=== PATIENT | female | born 1965 | race Caucasian/White ===

== ENCOUNTER 2020-06-26 08:24 | Outpatient (REF) | payer OTHER, SELFPAY ==
--- NOTE | 2020-06-26 | US_ITS ---
EXAMINATION: US THYROID CLINICAL INFORMATION: Enlarged thyroid. COMPARISON: None. TECHNIQUE: Linear transducer somers-scale and color Doppler examination with attention to the region of the thyroid. FINDINGS: SIZE: Measurements of the thyroid lobes and nodules are given in sagittal, anteroposterior and transverse dimensions respectively. Right Thyroid Lobe: 5.4 x 1.5 x 1.6 cm, volume 6.8 mL. Parenchyma: The gland echotexture is homogeneous. Thyroid vascularity is mildly increased. Left Thyroid Lobe: 5.3 x 1.0 x 1.7 cm, volume 4.7 mL. Parenchyma: The gland echotexture is homogeneous. Thyroid vascularity is mildly increased. Isthmus: 0.4 cm in maximum AP dimension. RIGHT THYROID LOBE: No nodules. ISTHMUS: No nodules. LEFT THYROID LOBE: No nodules. NODES: No lymphadenopathy is seen in the tissue surrounding the thyroid gland. IMPRESSION: Normal-size slightly hypervascular thyroid gland. Thyroiditis and Graves' disease should be considered. No nodule seen..
== END 2020-06-26 08:25 | disposition home or self-care (01) ==
LOC: HO.US 08:24
PROVIDERS: PCP Internal Medicine; Visit Provider Internal Medicine
DX: E04.9 Nontoxic goiter, unspecified (principal)
CPT/HCPCS: 76536

== ENCOUNTER 2020-07-23 08:43 | Outpatient (REF) | payer OTHER, SELFPAY ==
--- NOTE | 2020-07-23 08:48 | MM_ITS ---
EXAMINATION: MM SCREENING DIGITAL BREAST TOMOSYNTHESIS, BILATERAL CLINICAL INFORMATION: Screening. Asymptomatic. The lifetime risk of breast cancer based on the Tyrer-Cuzick Model is 11%. COMPARISON: Mammography: 11/02/2016, 09/15/2014 TECHNIQUE: Digital mammography is performed in craniocaudal and mediolateral oblique views along with computer-aided detection (CAD). Digital breast tomosynthesis is performed in implant-displaced craniocaudal and implant-displaced mediolateral oblique views along with computer-aided detection (CAD). Synthesized 2D images are generated from the tomosynthesis. Additional right MLO view is provided. FINDINGS: There are scattered areas of fibroglandular density (ACR BI-RADS breast composition Category b). There are bilateral implants. The implant margins are smooth. Parenchymal pattern is unremarkable. There is no developing density or interval mass or architectural abnormality or abnormal calcifications. The skin contours are smooth. No significant changes. MM/MM tomosynthesis screen imp BI IMPRESSION: No mammographic evidence of malignancy. ASSESSMENT: BI-RADS 1: Negative RECOMMENDATION: Routine annual mammography screening. This patient's information was entered into a reminder system with a target due date for their next mammogram.
--- NOTE | 2020-07-23 08:48 | MM_ITS ---
EXAMINATION: BONE DENSITOMETRY CLINICAL INDICATION: Postmenopausal. COMPARISON: This is the patient's baseline examination. TECHNIQUE: Using a [employer] DXA System (software version: 13.1) manufactured by [employer], dual-energy x-ray absorptiometry was performed of the lumbar spine and left hip. The images are of good technical quality. Summary results are attached. FINDINGS: AP SPINE L1-L4: BMD 1.079 g/cm2, Z-score -0.3, T-score -0.8, normal. LEFT FEMUR, NECK: BMD 0.752 g/cm2, Z-score -1.3, T-score -2.1, osteopenia. LEFT FEMUR, TOTAL: BMD 0.805 g/cm2, Z-score -1.2, T-score -1.6, osteopenia. IDENTIFIED RISK FACTORS: Low calcium, secondary osteoporosis, thiazide, menopause. HISTORY OF FRACTURE: None listed. MEDICATIONS: None listed. MM/XR DEXA axial skeleton IMPRESSION: 1. DIAGNOSIS: Osteopenia based on the lowest T-score value of -2.1 in the femoral neck applying World Health Organization criteria. 2. 10-YEAR FRACTURE RISK PREDICTION, FRAX: Major osteoporotic fracture (clinical spine, forearm, hip or shoulder) 8.6%. Hip fracture 1.1%. 3. Treatment Recommendations: NOF guidelines recommend consideration for treatment in postmenopausal women and men age 50 and older presenting with the following: -A hip or vertebral (clinical or morphometric) fracture. -T-score less than or equal to -2.5 at the femoral neck or spine after appropriate evaluation to exclude secondary causes. -Low bone mass at the hip or spine and a 10-year fracture probability by FRAX of greater than or equal to 3% for hip fracture or greater than or equal to 20% for major osteoporotic fracture based on the [place] adapted WHO algorithm. 4. Other Recommendations: All treatment decisions require clinical judgment and consideration of individual patient factors, including patient preferences, comorbidities, previous drug use, risk factors not captured in the FRAX model (e.g. frailty, falls, vitamin D deficiency, increased bone turnover, interval significant decline in bone density) and possible under or overestimation of fracture risk by FRAX. Additional medical evaluation for secondary cause of low bone mineral density may be appropriate. FUTURE SCAN RECOMMENDATION: People with diagnosed cases of osteoporosis or at high risk for fracture should have regular bone mineral density tests. For patients eligible for Medicare, routine testing is allowed once every 2 years. The testing frequency can be increased to one year for patients who have rapidly progressing disease, those who are receiving or discontinuing medical therapy to restore bone mass, or have additional risk factors.
== END 2020-07-23 08:44 | disposition home or self-care (01) ==
LOC: HO.MAMMO 08:43
PROVIDERS: PCP Internal Medicine; Visit Provider Internal Medicine
DX: Z78.0 Asymptomatic menopausal state (principal); Z13.31 Encounter for screening for depression
CPT/HCPCS: 77063; 77067; 77080

== ENCOUNTER → 2020-08-12 09:23 | Outpatient (BNVA) | payer OTHER, SELFPAY | PROVIDERS: PCP Internal Medicine; Visit Provider Internal Medicine | DX: R07.2 Precordial pain (principal); R94.39 Abnormal result of other cardiovascular function study; I10 Essential (primary) hypertension | CPT/HCPCS: 93005; 99202 ==

== ENCOUNTER → 2020-08-19 08:38 | Outpatient (REF) | payer OTHER, SELFPAY ==
--- NOTE | 2020-08-19 08:39 | CA_ITS ---
Acquisition Time: 2020-08-19 10:38:47 Total Exercise Time: 00:07:47 Test Indications: PALPITATIONS Medications: HCTZ Protocol: ALICIA Max HR: 155 BPM 94% of Pred: 164 BPM Max BP: 138/080 mmHG Max Work Load: 9.7 METS Exercise stress nuclear using Alicia protocol, total of 7 min 47 sec, METS 9.7 with MHR up to 93%. Tolerated well, denies any anginal sx. EKG with occ. PVC's, Mild upsloping ST depressions in inferior, lateral and some anterior leads.Nuclear images to follow. Normotensive response to exercise. Test reviewed with Dr. Yousif. Referred By: Brannon Jauregui Overread By: Luciana Harp
--- NOTE | 2020-08-19 08:39 | CA_ITS ---
Transthoracic Echocardiogram Patient (Last, First, Middle): Nya Pacheco, Gender: Female Date of : 1965 Age: 54 Procedure Date: 08/19/2020 Procedure Type: Transthoracic Echocardiogram Location: OP Height: 170.18 cm Weight: 73.94 kg BSA: 1.85 m2 Heart Rate: bpm BP: 118 / 60 mmHg Theoretical Physicist: Referring MD: Brannon Jauregui MD Symptoms: I25.10 - Atherosclerotic heart disease of [place] coronary artery without angina pectoris Study Quality: Fair, Good images on Apical views ECG Rhythm: Sinus Conclusions: - 1. Normal LV systolic function with impaired relaxation filling pattern 2. Normal cardiac valvular Doppler 3. Normal RV systolic pressure 4. No pericardial effusion Findings Left Ventricle Normal left ventricular size, thickness, and systolic function. The visually estimated ejection fraction is between 60-65%. Spectral Doppler is indicative of an impaired relaxation filling pattern. E/E prime ratio is between 8 and 15 consistent with indeterminate filling pressures. Right Ventricle Normal right ventricular cavity size and systolic function. Atria Both atria are normal in size. There is no evidence of interatrial shunt. Aortic Valve Normal aortic valve structure and function. There is no aortic valve stenosis. There is no aortic valve regurgitation. Mitral Valve Normal mitral valve structure and function. There is trace mitral valve regurgitation. There is no mitral valve stenosis. Pulmonic Valve The pulmonic valve was not well visualized. Tricuspid Valve Normal tricuspid valve structure. There is trace tricuspid valve regurgitation. The right ventricular systolic pressure is normal. The right ventricular systolic pressure is 23 mmHg. Normal right atrial pressure. There is no evidence of pulmonary hypertension. Great Vessels All visible segments of the aorta are normal in size. The pulmonary artery was not well visualized. Venous The inferior vena cava is normal in size and collapses greater than 50% with inspiration. Pericardium/Pleural There is no evidence of pericardial effusion. Prior Study Comparison No prior study available for comparison. Measurements 2D Linear Measurements IVSd: 0.82 0.6-0.9/0.6-1.0 cm LVIDd: 4.44 3.9-5.3/4.2-5.9 cm LVIDd Index: 2.40 2.4-3.2/2.2-3.1 cm/m2 LVIDs: 2.60 2.0-3.6 cm LVPWd: 0.90 0.7-1.1 cm Ao Root: 3.20 2.1-3.5 cm LA Diam: 3.80 2.7-3.8/3.0-4.0 cm LAIDs Index: 2.05 1.5-2.3 cm/m2 LV Mass: 246.18 67-162/88-224 g LV Mass Index: 133.07 43-95/49-115 g/m2 LVOT Diam: 2.10 3.0+(-)1.3 cm Mitral Valve MV Pk E: 0.88 MV PK A: 1.02 MV Decel Time: 176.00 E/A: 0.90 E'Lateral: 7.83 E'Medial: 9.96 E/E' Med: 8.90 E/E' Lat: 11.30 PHT: 52.00 MVA PHT: 4.23 Decel Nicholas: 5.01 Aortic Valve AoV Pk Melchor: 1.46 AoV Mn Melchor: 0.93 AoV VTI: 0.36 AoV Pk Grad: 9.00 Aov Mn Grad: 4.00 ROSAS Cont.VTI: 2.29 LVOT LVOT Pk Melchor: 1.10 LVOT Mn Melchor: 0.63 LVOT VTI: 0.24 LVOT Pk Grad: 5.00 LVOT Mn Grad: 2.00 LVOT Diam: 2.10 LVOT Area: 3.46 Diastolic Function MV Pk E: 0.88 MV Pk A: 1.02 E/A: 0.90 E'Medial: 9.96 E/E' Med: 8.90 E' Laterial: 7.83 E/E' Lat: 11.30 Tricuspid Valve TR Pk Melchor: 2.24 TR Pk Grad: 20.00 RA Press: 3.00 RVSP: 23.00 Great Vessels Aorta Ao Root-2D: 3.20 2.0-3.7 cm Ao Asc: 3.10 2.1-3.4 cm Pulmonary Valve PV Pk Melchor: 0.99 Peak PV Grad: 4.00 Updated in Other Vendor System with Status of Final Maco Yousif MD electronically signed on 08/20/2020 4:57:38 PM with status of Final
--- NOTE | 2020-08-19 09:46 | NM_ITS ---
Exercise Myocardial perfusion study Indication: Precordial discomfort to evaluate for myocardial ischemia Technique: The patient was brought in for an exercise perfusion study on 08/19/2020. Patient performed exercise as per Enrique protocol and was injected 25 mCi of sestamibi was given intravenously one target HR was achieved. Images were obtained using the SPECT gamma camera interlaced with the gating device. Images were obtained in supine position. Resting perfusion study was performed on 08/21/2020. Patient was administered 25 mCi of sestamibi intravenously at rest. Images were then obtained in supine position. Images obtained with and without CT attenuation. Total DLP 90 mGy-cm. Images were processed with the software and compared side to side in short axis, horizontal long axis and vertical long axis views. Findings: The stress perfusion study showed both attenuated corrected as well as non attenuated images show normal uptake of radiotracer in all segments of LV myocardium. The gated study shows normal LV systolic function with calculated LVEF of greater than 70 %. LV cavity is normal in size. The gated study shows normal systolic wall thickening and contraction of all segments. There is no transient ischemic dilation. Resting study shows no significant change in perfusion pattern. Gating at rest reveals normal systolic wall motion with ejection fraction at 62%. The findings are consistent with normal myocardial perfusion. NM/NM cardiolite stress test Impression: 1. Normal myocardial perfusion 2. Gated LVEF is 62% 3. Transient ischemic dilatation not present Stress EKG is equivocal for ischemia
== END ==
LOC: HO.CARD 08:38
PROVIDERS: Visit Provider Internal Medicine
DX: R07.2 Precordial pain (principal); I25.10 Atherosclerotic heart disease of native coronary artery without angina pectoris
CPT/HCPCS: 78452; 93017; 93306; A9500

== ENCOUNTER → 2020-09-01 11:36 | Outpatient (BNVA) | payer OTHER, SELFPAY | PROVIDERS: PCP Internal Medicine; Visit Provider Internal Medicine | DX: Z76.89 Persons encountering health services in other specified circumstances (principal) ==

== ENCOUNTER → 2020-09-01 | Outpatient (REF) | payer OTHER, SELFPAY ==
--- NOTE | 2020-09-01 13:30 | ECG_ITS ---
Hook-up date: 2020-09-08 10:08:00 Duration: 47:59:00 Test Indications: PALPITATIONS Medications: [id number] QRS complexes 736 Ventricular ectopics which represent <1 % of total QRS comp. 23 Supraventricular ectopics which represent <1 % of total QRS comp. * Paced QRS complexs which represent % of total QRS comp. VENTRICULAR ECTOPY 730 Isolated 0 Bigeminal Cycles 3 Couplets 0 Runs 0 Beats in Runs * Beats LONGEST at * BPM at :: -- * Beats FASTEST at * BPM at :: -- SUPRAVENTRICULAR ECTOPY 11 Isolated 1 Couplets 2 Runs 10 Beats in Runs 6 Beats LONGEST at 147 BPM at 16:59:22 2020-09-09 6 Beats FASTEST at 147 BPM at 16:59:22 2020-09-09 HEART RATES 58 MIN at 05:37:03 2020-09-09 79 AVG 122 MAX at 10:10:29 2020-09-08 LONGEST RR 1.2640 secs at 20:35:50 2020-09-09 S-T LEVELS Channel 1 - 128 mm at 10:08:00 2020-09-08 - 128 mm at 10:08:00 2020-09-08 Channel 2 - 128 mm at 10:08:00 2020-09-08 - 128 mm at 10:08:00 2020-09-08 Channel 3 - 128 mm at 02:92:71 -- - 128 mm at 02:92:71 Underlying rhythm is sinus; Average ventricular rate 79/min; range 58-122/min; Occasional PVCs with some couplets; (<1%; 736 over 48Hrs); Rare PACs with 2 very short runs; Fluttering in patient diary possibly from above, but exact times do not correlate. Referred By: Nicole Rubio Overread By: NICOLE RUBIO
== END ==
LOC: HO.CARD
PROVIDERS: Visit Provider Internal Medicine
DX: R00.2 Palpitations (principal)
CPT/HCPCS: 93226

== ENCOUNTER → 2020-09-02 09:14 | Outpatient (BNVA) | payer OTHER, SELFPAY | PROVIDERS: PCP Internal Medicine; Visit Provider Internal Medicine | DX: Z76.89 Persons encountering health services in other specified circumstances (principal) ==

== ENCOUNTER → 2020-09-08 08:39 | Outpatient (BNVA) | payer OTHER, SELFPAY | PROVIDERS: PCP Internal Medicine; Visit Provider Internal Medicine | DX: Z76.89 Persons encountering health services in other specified circumstances (principal) ==

== ENCOUNTER → 2020-10-12 08:30 | Outpatient (BNVA) | payer OTHER, SELFPAY | PROVIDERS: PCP Internal Medicine; Visit Provider Internal Medicine | DX: I49.3 Ventricular premature depolarization (principal); R07.2 Precordial pain; R94.39 Abnormal result of other cardiovascular function study; I10 Essential (primary) hypertension; R00.2 Palpitations; Z79.899 Other long term (current) drug therapy | CPT/HCPCS: 99212 ==

== ENCOUNTER 2020-10-27 09:28 | Outpatient (REF) | payer OTHER, SELFPAY ==
[2020-10-27 10:45] LABS: Anion Gap 13 (12-20); Blood Urea Nitrogen 16 mg/dL (9-16); Calcium 9.5 mg/dL (8.4-10.2); Carbon Dioxide 29 mmol/L (22-29); Chloride 103 mmol/L (96-108); Estimated Glomerular Filt Rate > 60; Glucose Random 87 mg/dL (60-115); Potassium 4.4 mmol/L (3.3-5.1); Sodium 141 mmol/L (135-145)
[2020-10-27 11:11] LABS: Free T4 (Free Thyroxine) 0.99 ng/dL (0.71-1.85); Thyroid Stimulating Hormone 1.32 uIU/mL (0.32-4.0)
[2020-10-28 06:47] LABS: Thyroid Peroxidase Antibodies 1 IU/mL (<9)
== END 2020-10-27 09:29 | disposition home or self-care (01) ==
LOC: HO.10HDL 09:28
PROVIDERS: Visit Provider Internal Medicine
DX: Z13.89 Encounter for screening for other disorder (principal)
CPT/HCPCS: 36415; 80048; 84439; 84443; 86376

== ENCOUNTER 2020-11-11 08:42 | Outpatient (REF) | payer OTHER, SELFPAY ==
--- NOTE | ~2020-11-11 | FL_ITS ---
EXAMINATION: XR GI SERIES CLINICAL INFORMATION: Gastroesophageal reflux disease COMPARISON: None TECHNIQUE: Number GI was performed using thin and thick barium and effervescent granules. FINDINGS: There is a small to moderate sliding-type hiatal hernia with prominent Schatzki ring. There is mild gastroesophageal reflux. The esophagus is otherwise unremarkable. The stomach and duodenum are normal-appearing. No fold thickening, mass, ulcer or stricture is seen. FLUOROSCOPY TIME: 0.9 minutes DOSE AREA PRODUCT: 9.2 De La Garza per centimeter squared. 27 saved fluoroscopic images. FL/FL upper GI series IMPRESSION: [id number] sliding-type hiatal hernia with Schatzki ring. Mild gastroesophageal reflux.
== END 2020-11-11 08:43 | disposition home or self-care (01) ==
LOC: HO.XRAY 08:42
PROVIDERS: PCP Internal Medicine; Visit Provider Internal Medicine
DX: K21.9 Gastro-esophageal reflux disease without esophagitis (principal)
CPT/HCPCS: 74240

== ENCOUNTER → 2021-01-27 08:09 | Outpatient (BNVA) | payer OTHER, SELFPAY | PROVIDERS: PCP Internal Medicine; Referring Provider Internal Medicine; Visit Provider Internal Medicine ==

== ENCOUNTER 2021-12-29 09:49 | Outpatient (REF) | payer OTHER, SELFPAY ==
--- NOTE | ~2021-12-29 | MM_ITS ---
EXAMINATION: MM SCREENING DIGITAL BREAST TOMOSYNTHESIS, BILATERAL CLINICAL INFORMATION: Screening. Asymptomatic. The lifetime risk of breast cancer based on the Tyrer-Cuzick Model is 11%. COMPARISON: Mammography: 07/23/2020, 11/02/2016 TECHNIQUE: Digital mammography is performed in craniocaudal and mediolateral oblique views along with computer-aided detection (CAD). Digital breast tomosynthesis is performed in implant-displaced craniocaudal and implant-displaced mediolateral oblique views along with computer-aided detection (CAD). Synthesized 2D images are generated from the tomosynthesis. FINDINGS: There are scattered areas of fibroglandular density (ACR BI-RADS breast composition Category b). There are bilateral implants. Implant contours are smooth. Neither breast shows abnormal calcifications. The bilateral axilla and skin contours are unremarkable. Left breast shows no significant change in parenchymal pattern. There is no interval mass or architectural abnormality. Right breast has new nodule mid to posterior upper outer quadrant just under 1 cm with ill-defined margins, or approximately 7-8 cm from nipple. Patient will be recalled for additional imaging. MM/MM tomosynthesis screen imp BI IMPRESSION: Right: -New nodule upper outer quadrant with ill-defined margins. Left: -No mammographic evidence of malignancy. ASSESSMENT: BI-RADS 0: Incomplete - Need Additional Imaging Evaluation RECOMMENDATION: 1. Additional views of the right breast for nodule margins (implant displaced spot CC, implant displaced spot ML). 2. Targeted ultrasound right breast. 3. Radiology department staff will contact the patient for additional imaging. This patient's information was entered into a reminder system with a target due date for their next mammogram.
== END 2021-12-29 09:50 | disposition home or self-care (01) ==
LOC: HO.MAMMO 09:49
PROVIDERS: Visit Provider Internal Medicine
DX: Z12.31 Encounter for screening mammogram for malignant neoplasm of breast (principal)
CPT/HCPCS: 77063; 77067

== ENCOUNTER 2022-01-13 13:23 | Outpatient (REF) | payer OTHER, SELFPAY ==
--- NOTE | ~2022-01-13 | MM_ITS ---
EXAMINATION: MM DIAGNOSTIC DIGITAL BREAST TOMOSYNTHESIS, RIGHT US DIAGNOSTIC ULTRASOUND BREAST, RIGHT CLINICAL INFORMATION: Recall from screening for new nodule mid posterior upper outer right breast with ill-defined margins. COMPARISON: Mammography: 12/29/2021, 07/23/2020 TECHNIQUE: Digital breast tomosynthesis is performed. 2D images are generated from the tomosynthesis. The following views are obtained: Spot CC, spot ML. Ultrasound right breast is targeted to the upper outer quadrant. Additional imaging performed right axilla. Grayscale imaging and color Doppler are performed without and with harmonics. FINDINGS: There are scattered areas of fibroglandular density (ACR BI-RADS breast composition Category b). The additional views confirm irregular nodule just under 1 cm upper outer quadrant, new finding from prior mammography 2019. Margins appear irregular. Ultrasound demonstrates a irregular hypoechoic nodule 11:00 position 7 cm from nipple measuring 0.7 cm in greatest dimension. There is some associated color flow. No definite increased or decreased through transmission of sound. The location and shape correspond to finding on mammography. Additional imaging right axilla demonstrates no lymphadenopathy. Results are discussed with the patient at time of visit. Ultrasound-guided biopsy of the right breast mass is recommended. Results and recommendation called to medical lab technician (Ev) for Dr. Toscano on 01/13/2022. MM/MM tomosynthesis added views R IMPRESSION: -New irregular nodule upper outer right breast just under 1 cm with ultrasound correlate. ASSESSMENT: BI-RADS 4: Suspicious RECOMMENDATION: Ultrasound-guided core biopsy right breast nodule.
== END 2022-01-13 13:24 | disposition home or self-care (01) ==
LOC: HO.MAMMO 13:23
PROVIDERS: Visit Provider Internal Medicine
DX: N63.11 Unspecified lump in the right breast, upper outer quadrant (principal)
CPT/HCPCS: 76642; 77061; 77065

== ENCOUNTER 2022-01-18 09:11 | Outpatient (REF) | payer OTHER, SELFPAY ==
--- NOTE | ~2022-01-18 | MM_ITS ---
EXAMINATION: ULTRASOUND GUIDED CORE BIOPSY BREAST, RIGHT POST PROCEDURE DIGITAL BREAST TOMOSYNTHESIS, RIGHT CLINICAL INFORMATION: New irregular nodule upper outer right breast just under 1 cm. COMPARISON: Mammography 01/13/2022, 12/29/2021, 07/23/2020, ultrasound right breast 01/13/2022. FINDINGS: Proper informed consent is obtained from the patient after discussion of the procedure, potential risks and complications, and alternatives. Patient was given an opportunity for questions. The patient appeared to understand. The patient consented to the procedure and signed the consent form. GUIDANCE: Ultrasound-guided; aseptic technique. LESION: Irregular hypoechoic nodule upper outer right breast under 1 cm. APPROACH: Lateral medial. ANESTHESIA: 10 mL carbonated 1% lidocaine. DERMATOTOMY: Single skin rashard dermatotomy performed. NEEDLE: 14-gauge Achieve core biopsy device with 13.5-gauge co-axial guide needle. CORES: 6. Lesion is difficult to visualize during additional sampling cores. CLIP: HydroMARK; shape: open coil. The lesion is difficult to visualize following sampling. Clip placed in the vicinity of biopsy site. POST PROCEDURE UNILATERAL DIGITAL BREAST TOMOSYNTHESIS, RIGHT: The post biopsy mammogram is performed in separate room using separate digital breast tomography equipment from the biopsy procedure. Implant displaced CC and implant displaced MLO views are obtained. There are scattered areas of fibroglandular density (breast composition category: b). Primary lesion is difficult to visualize with the superimposed attenuation from the biopsy procedure and anesthesia. The clip marker is in general vicinity of the primary lesion cited for sampling. No gross hematoma. The patient tolerated the procedure well. No immediate complications. Home instructions reviewed with the patient. Final pathology results are pending. MM/MM tomosynthesis diag imp RT IMPRESSION: 1. Status post ultrasound-guided core biopsy right breast. 2. Clip placed: HydroMARK; shape: open coil. 3. Pathology pending. An addendum report will be issued.
[2022-01-18] MEDS: Sodium Bicarbonate 8.4% 50 MEQ/50 ML VIAL SUBCUT (10:47)
[2022-01-18] MEDS: Lidocaine HCl 1 % 20 ML VIAL 9 ML SUBCUT (10:48)
== END 2022-01-18 09:12 | disposition home or self-care (01) ==
LOC: HO.MAMMO 09:11
PROVIDERS: Pathology Anatomic Pathology & Clinical Pathology; PCP Internal Medicine; Visit Provider Surgery
DX: R92.8 Other abnormal and inconclusive findings on diagnostic imaging of breast (principal)
CPT/HCPCS: 19083; 36415; 77061; 77065; 88305; 88341; 88342; 88360; 88374; A4648

== ENCOUNTER → 2022-01-21 11:30 | Outpatient (BNVA) | payer OTHER, SELFPAY | PROVIDERS: PCP Internal Medicine; Referring Provider Internal Medicine; Visit Provider Surgery | DX: C50.911 Malignant neoplasm of unspecified site of right female breast (principal) ==

== ENCOUNTER 2022-02-02 06:56 | Day surgery (SDC) | payer OTHER, SELFPAY ==
[2022-01-27 10:30] VITALS: BMI 25.2
--- NOTE | 2022-02-01 09:14 | HO.ANESPROP2 ---
Documented by User: Mariela Parnell NP 02/01/22 09:16 HPI - Anesthesia Eval Consult details Narrative: 56yo F for Right Breast Lumpectomy/Needle Loc, Adams Node Biopsy PMFSH Active Problems Active Problems: All Active Problems (Updated 02/01/22 @ 08:37 by Lucia Terrell RN) Abnormal stress test (Acute) Precordial chest pain (Acute) Heart palpitations (Acute) Invasive ductal carcinoma of right breast (Acute) PVC (premature ventricular contraction) (Acute) Essential hypertension (Acute) Past Medical History Medical History (Updated 02/01/22 @ 08:37 by Lucia Terrell RN) Abnormal ultrasound of breast Essential hypertension GERD (gastroesophageal reflux disease) PVC (premature ventricular contraction) Family History Family History Father Heart disease Mother Pancreatic cancer Surgical History Surgical History History of bilateral breast implants History of bunionectomy History of sinus surgery Social History Social History Alcohol intake: current Alcohol intake frequency: 0-2 drinks per day Patient Tobacco Use Status: Never used Tobacco Use of substances other than those prescribed or required for medical reasons: No Are you DNR?: No Advance Directives: No Advance Directives Information Provided: Yes Advance Directives on File: No Meds Allergies Allergy/AdvReac Type Severity Reaction Status Date / Time No Known Allergies Allergy Verified 01/27/22 10:42 Home Medications Medication Instructions Recorded Confirmed Last Taken Type hydrochlorothiazide 25 mg tablet 25 mg PO DAILY 08/12/20 01/27/22 Unknown History olmesartan 40 mg tablet 40 mg PO DAILY 08/12/20 01/27/22 Unknown History omeprazole 40 mg capsule,delayed 40 mg PO BID 01/27/22 01/27/22 02/02/22 History release Exam Exam Date and Time: February 01, [id number] Height,Weight and Vital Signs: Height 5 ft 7.75 in Weight 74.843 kg Narrative Narrative: ECHO 2019 Conclusions: - 1. Normal LV systolic function with impaired relaxation filling pattern? 2. Normal cardiac valvular Doppler ? 3. Normal RV systolic pressure ? 4. No pericardial effusion ? ? NM cardiolite stress test 2019 Impression: ? 1.? Normal myocardial perfusion 2.? Gated LVEF is 62% 3. Transient ischemic dilatation not present ? Stress EKG is equivocal for ischemia Assessment and Plan Assessment Anesthesia Assessment: Chart Reviewed Documented by User: Michael Hanson MD 02/02/22 10:53 [facility] Past Medical History Medical History (Updated 02/01/22 @ 08:37 by Lucia Terrell RN) Abnormal ultrasound of breast Essential hypertension GERD (gastroesophageal reflux disease) PVC (premature ventricular contraction) Family History Family History Father Heart disease Mother Pancreatic cancer Family history of problems with anesthesia: No Surgical History Surgical History History of bilateral breast implants History of bunionectomy History of sinus surgery History of Problems with Anesthesia: No Social History Social History Alcohol intake: current Alcohol intake frequency: 0-2 drinks per day Patient Tobacco Use Status: Never used Tobacco Use of substances other than those prescribed or required for medical reasons: No Are you DNR?: No Advance Directives: No Advance Directives Information Provided: Yes Advance Directives on File: No Meds Allergies Allergy/AdvReac Type Severity Reaction Status Date / Time No Known Allergies Allergy Verified 01/27/22 10:42 Home Medications Medication Instructions Recorded Confirmed Last Taken Type hydrochlorothiazide 25 mg tablet 25 mg PO DAILY 08/12/20 01/27/22 Unknown History olmesartan 40 mg tablet 40 mg PO DAILY 08/12/20 01/27/22 Unknown History omeprazole 40 mg capsule,delayed 40 mg PO BID 01/27/22 01/27/22 02/02/22 History release Exam Airway Mallampati Class: II TM Dist: >3cm Neck ROM: Full Loose/Missing/Broken Teeth: No Heart: [id number] Lungs: cta b/l Assessment and Plan Assessment Anesthesia Assessment: Anesthesia Plan Discussed Final Anesthetic Review Family History of Problems with Anesthesia: No History of Problems with Anesthesia: No NPO: Yes ASA Class: III Final Preanesthetic Review: No Changes in Pt Med Stat, Consent Obtained/Reviewed and Anes Risks/Benef Reviewed Patient Risk: Intermediate Procedure Risk: Intermediate Assessment/Block/Sedation in SS: Assess/Block/Sedation-SS Anesthetic Plan Anesthetic Plan: GA and Agree w/ Assess. and Plan Disposition: Standard PACU
--- NOTE | ~2022-02-02 | NM_ITS ---
PROCEDURE: NM LYMPH SCINTIGRAPHY CLINICAL INFORMATION: Breast cancer. COMPARISON: None TECHNIQUE: Four aliquots of 0.125 mCi of technetium 99m labeled LymphoSeek was injected at the skin nipple interface in the 12, 3, 6 and 9 o'clock axes for total dose of 0.5 mCi. Anterior ROSS and right lateral imaging of the chest was performed at 25 minutes. FINDINGS: There is adequate radiotracer uptake at the skin nipple interface. There is sentinel node activity seen in the right axilla. A single sentinel node is seen. NM/NM sentinel node w imaging IMPRESSION: Positive sentinel node uptake in the right axilla.
--- NOTE | ~2022-02-02 | MM_ITS ---
EXAMINATION: MM MAMMOGRAM GUIDED NEEDLE LOCALIZATION BREAST, RIGHT MM NEEDLE LOCALIZATION SPECIMEN FROM THE RIGHT BREAST CLINICAL INFORMATION: Recent diagnosis invasive ductal cancer right breast. Right implant present. COMPARISON: Mammography 12/29/2021, 01/13/2022, 11/18/2021; ultrasound right breast 01/13/2022, ultrasound-guided right breast biopsy 01/18/2022. TECHNIQUE NEEDLE LOC: Proper informed consent is obtained from the patient after discussion of the procedure, potential risks and complications, and alternatives including declining the procedure today. Consent obtained for both the needle localization and the subcarinal lymph node mapping to follow and described in separate report. Patient was given an opportunity for questions. The patient appeared to understand. The patient consented to the procedure and signed the consent form. GUIDANCE: Digital mammography. APPROACH: Lateral Medial. TARGET: Nodule with adjacent HydroMARK open coil biopsy clip marker. ANESTHESIA: Carbonated lidocaine 1%: 6 mL. LOCALIZATION MARKER: [place] MammaLok. 7.5 cm length. The skin is prepped and local anesthesia administered. The needle is positioned and position assessed with mammography. The wire is hooked into position. [place] needle protector placed. The patient tolerated the procedure well and had no immediate complication. Following the procedure, 4% lidocaine ointment was administered to the left areola and covered with Tegaderm in anticipation of nuclear lymphoscintigraphy injection for sentinel lymph node mapping. Procedure findings called to medical safety director (Mariela) for Dr. Mclean following the procedure. TECHNIQUE SPECIMEN RADIOGRAPH: Imaging of the excised specimen is performed using digital mammography in 1 view. FINDINGS SPECIMEN RADIOGRAPH: The specimen shows the needle and hookwire are delivered intact. The biopsy clip marker is in the specimen adjacent to the localization needle and wire. There is focal irregular increased attenuation adjacent to the clip which most likely represents the primary lesion. Results were called to Dr. Vinicio Mclean in the operating room at the time of imaging. MM/MM needle loc RT IMPRESSION: 1. Status post right breast needle localization with wire hooked into position. 2. Post operative specimen radiograph obtained.
[2022-02-02 07:30] VITALS: BP 154/91; PULSE 80; RESP 16; TEMP 36.6; O2SAT 99
[2022-02-02] MEDS: Lidocaine HCl 1 % 20 ML VIAL 6 ML SUBCUT (09:14)
[2022-02-02] MEDS: Sodium Bicarbonate 8.4% 50 MEQ/50 ML VIAL SUBCUT (09:15)
--- NOTE | 2022-02-02 11:20 | MHC.SHP ---
Pre-Procedural Eval Section A Date of Service: 02/02/22 The patient is an INPATIENT: No Changes since office visit: Yes Patient answered all questions; No Cold of Flu in the past 2 weeks, No New Medical Problems and No Changes in Medication The History & Physical has been completed within 30 days and I have reviewed it.: Yes Section B Chief Complaint: Malignant neoplasm of site of right breast Allergies: Allergies Allergy/AdvReac Type Severity Reaction Status Date / Time No Known Allergies Allergy Verified 01/27/22 10:42 Plan Diagnosis/Plan: Unchanged I have reviewed the history and physical and performed a pertinent physical examination on my patient. No changes have occurred unless specified.
--- NOTE | 2022-02-02 13:01 | P.OP_ITS ---
Operative Note Operative Note Date of Service: 02/02/22 Narrative: Preoperative diagnosis:Invasive ductal carcinoma right breast Postoperative diagnosis:same Procedure:Right breast lumpectomy with needle localization, right axillary sentinel node biopsy Surgeon: Vinicio Mclean MD Critical Systems Technician: no physician Anesthesia: General LMA Indications for procedure: 48-year-old female patient with a density noted in the upper outer quadrant of the right breast on recent mammogram. She is status post needle core biopsy which revealed invasive ductal carcinoma. She presents now for a lumpectomy with needle localization, right axillary sentinel node biopsy. Operative findings: Localizing wire and clip noted within the specimen x-ray. Gross pathology confirmed adequate margins on specimen. Specimen: 1. Lumpectomy right breast, 2. [place] node 1 2 and 3, 3. Additional axillary tissue. Estimated blood loss: 25 mL Complications: None Procedure details: Patient was brought to the OR and placed in a supine position. After administering general anesthesia the patient is right breast and axilla were prepped with ChloraPrep and draped in a sterile fashion. A surgical time-out was called and consent confirmed. Patient received preoperative antibiotics and Venodyne boots were in place. Local anesthesia consisting of Sensorcaine 0.25% Sensorcaine was infiltrated along the localizing needle in the upper outer quadrant. A curvilinear incision was then made to include the entrance site of the localizing needle. Incision was carried down to the subcutaneous tissue. Superior and inferior skin flaps were then created using electrocautery. Core of tissue surrounding the localizing needle was then obtained. This was done starting at the medial margin and proceeding to the inferior margin, superior margin, lateral margin followed by posterior margin. The specimen was marked margins and sent to pathology further examination. Wounds were then checked for hemostasis. Hemostasis was assured using electrocautery. Attention was then directed to the axilla. Using the gamma probe area of increased radio activity was identified. A curvilinear incision was then made over this site. This was carried down through subcutaneous tissue, past o'clock ductal fascia into the axillary fat pad. Again using the gamma probe the area of increased activity was identified. This was grasped using a Allis clamp. Several hot nodes were noted. First node had approximately 4000 counts and was sent as sentinel node 1. 2 additional less radioactive nodes were also identified and was sent as sentinel node 2 and 3. Additional axillary tissue without radio activity was sent and labeled as additional axillary tissue. Hemostasis was then assured using electrocautery and free ties of 3-0 Polysorb suture. After assuring adequate hemostasis the clavipectoral fascia was reapproximated using interrupted 3-0 Polysorb sutures. Dermis was reapproximated using interrupted 3-0 Polysorb sutures. Skin was closed using a running subcuticular 4-0 Polysorb suture. Breast incision was then closed by reapproximating the deep breast tissue using interrupted 3-0 Polysorb sutures. Dermis was reapproximated using interrupted 3-0 Polysorb sutures. Skin was closed using a running subcuticular 4-0 Polysorb suture. Steri-Strips, 2 x 2 gauze, and Tegaderm were then applied to both incisions. Patient tolerated the procedure well. Sponge, instrument, and needle counts were reported as correct. Patient was transferred to PACU in stable condition. Breast [place] Node Biopsy Substrate(s) used for sentinel node biopsy in the non-neoadjuvant setting: Radiotracer Substrate(s) used for sentinel node biopsy in the neoadjuvant setting: N/A All colored nodes or non-colored nodes present at the end of a dye filled lymphatic channel were removed, if dye was used as the substrate for localization: N/A All significantly radioactive nodes were removed, if radionuclide was used as the substrate for localization: Yes All palpably suspicious nodes were removed, if present: Yes If clips were placed in pathology-involved nodes, those nodes were identified and removed: N/A General Surg. - Synoptic Notes Breast [place] Node Biopsy Substrate(s) used for sentinel node biopsy in the non-neoadjuvant setting: Radiotracer Substrate(s) used for sentinel node biopsy in the neoadjuvant setting: N/A All colored nodes or non-colored nodes present at the end of a dye filled lymphatic channel were removed, if dye was used as the substrate for localization: N/A All significantly radioactive nodes were removed, if radionuclide was used as the substrate for localization: Yes All palpably suspicious nodes were removed, if present: Yes If clips were placed in pathology-involved nodes, those nodes were identified and removed: N/A
[2022-02-02 13:10] VITALS: BP 137/66; PULSE 92; RESP 16; TEMP 36.6; O2SAT 97
[2022-02-02 13:15] VITALS: BP 126/66; PULSE 95; RESP 18; O2SAT 96
[2022-02-02 13:20] VITALS: BP 136/84; PULSE 86; RESP 18; O2SAT 96
[2022-02-02 13:25] VITALS: BP 130/72; PULSE 87; RESP 18; TEMP 36.7; O2SAT 97
== END 2022-02-02 14:05 | disposition home or self-care (01) ==
PROVIDERS: PCP Internal Medicine; Visit Provider Surgery
PROC: (CPT 19301; principal; 2022-02-02 11:00)
PROC: (CPT 19301; 2022-02-02 11:00)
DX: C50.411 Malignant neoplasm of upper-outer quadrant of right female breast (principal); Z17.0 Estrogen receptor positive status [ER+]; I10 Essential (primary) hypertension; I49.3 Ventricular premature depolarization; Z98.82 Breast implant status; Z79.899 Other long term (current) drug therapy
CPT/HCPCS: 19301; 38525; 19281; 78195; 88305; 88307; 88329; 88341; 88342; 88360; A4648; A9520; J0690; J1100; J1885; J2250; J2405; J2795; J3010

== ENCOUNTER → 2022-02-10 10:20 | Outpatient (BNVA) | payer OTHER, SELFPAY | PROVIDERS: PCP Internal Medicine; Referring Provider Internal Medicine; Visit Provider Surgery | DX: C50.911 Malignant neoplasm of unspecified site of right female breast (principal) ==

== ENCOUNTER 2022-03-02 05:55 | Day surgery (SDC) | payer OTHER, SELFPAY ==
[2022-02-24 09:39] VITALS: BMI 26.7
--- NOTE | 2022-03-01 09:05 | P.CONAN_ITS ---
Documented by User: Mariela Parnell NP 03/01/22 09:06 HPI - Anesthesia Eval Consult details Narrative: 56yo F for Right Wide Breast Mass Excision s/p lumpectomy 01/2022 with GA-LMA 3 PMFSH Active Problems Active Problems: All Active Problems (Updated 02/24/22 @ 09:42 by Gala Perez RN) Abnormal stress test (Acute) Precordial chest pain (Acute) Heart palpitations (Acute) Invasive ductal carcinoma of right breast (Acute) PVC (premature ventricular contraction) (Acute) Essential hypertension (Acute) Past Medical History Medical History (Updated 03/01/22 @ 15:19 by Sharon Chaudhry MD) COVID-19 vaccine series completed GERD (gastroesophageal reflux disease) Family History Family History (Updated 03/01/22 @ 15:42 by Kaelyn Souza, LE) Father Prostate CA Heart disease Mother Pancreatic cancer Paternal Aunt Ovarian cancer Family history of problems with anesthesia: No Surgical History Surgical History (Updated 03/01/22 @ 15:19 by Sharon Chaudhry MD) History of bilateral breast implants History of bunionectomy History of lumpectomy of right breast (02/02/22) History of sinus surgery History of Problems with Anesthesia: No Social History Social History (Updated 03/01/22 @ 15:43 by Kaelyn Souza, LE) Do you presently have visiting nurse or other home services: No Alcohol intake: current Alcohol intake frequency: 0-2 drinks per day Patient Tobacco Use Status: Never used Tobacco Use of substances other than those prescribed or required for medical reasons: No Have you been hit, kicked, punched, or otherwise hurt by someone within the past year? If so, by whom?: No Are you DNR?: No Advance Directives: No Advance Directives Information Provided: Yes (brochure mailed) Advance Directives on File: No Recently lost weight without trying: No Eating poorly because of decreased appetite: No Nutrition Risks: No Nutritional Risk Meds Allergies Allergy/AdvReac Type Severity Reaction Status Date / Time No Known Allergies Allergy Verified 02/10/22 10:40 Home Medications Medication Instructions Recorded Confirmed Last Taken Type hydrochlorothiazide 25 mg tablet 25 mg PO DAILY 08/12/20 03/01/22 Unknown History olmesartan 40 mg tablet 40 mg PO DAILY 08/12/20 03/01/22 Unknown History omeprazole 40 mg capsule,delayed 40 mg PO BID 01/27/22 03/01/22 03/02/22 History release Exam Exam Date and Time: March 01, 2022904 Height,Weight and Vital Signs: Height 5 ft 7 in Weight 77.564 kg Narrative Narrative: ECHO 2019 Conclusions: - 1. Normal LV systolic function with impaired relaxation filling pattern? 2. Normal cardiac valvular Doppler ? 3. Normal RV systolic pressure ? 4. No pericardial effusion ? ? NM cardiolite stress test 2019 Impression: ? 1.? Normal myocardial perfusion 2.? Gated LVEF is 62% 3. Transient ischemic dilatation not present ? Stress EKG is equivocal for ischemia Airway Mallampati Class: II TM Dist: >3cm Neck ROM: Full Loose/Missing/Broken Teeth: No Assessment and Plan Assessment Anesthesia Assessment: Chart Reviewed Final Anesthetic Review Family History of Problems with Anesthesia: No History of Problems with Anesthesia: No Documented by User: Rosemarie Smith MD 03/02/22 07:25 [facility] Active Problems Active Problems: All Active Problems (Updated 02/24/22 @ 09:42 by Gala Perez RN) Abnormal stress test (Acute) Precordial chest pain (Acute) Heart palpitations (Acute) Invasive ductal carcinoma of right breast (Acute) PVC (premature ventricular contraction) (Acute) Essential hypertension (Acute) Slight cough this am. Clearing throat. States from acid reflux because did not drink this morning which she usually does when she takes the prilosec Past Medical History Medical History (Updated 03/01/22 @ 15:19 by Sharon Chaudhry MD) COVID-19 vaccine series completed GERD (gastroesophageal reflux disease) Family History Family History (Updated 03/01/22 @ 15:42 by Kaelyn J Souza, RN) Father Prostate CA Heart disease Mother Pancreatic cancer Paternal Aunt Ovarian cancer Surgical History Surgical History (Updated 03/01/22 @ 15:19 by Sharon Chaudhry MD) History of bilateral breast implants History of bunionectomy History of lumpectomy of right breast (02/02/22) History of sinus surgery Social History Social History (Updated 03/01/22 @ 15:43 by Kaelyn Souza RN) Do you presently have visiting nurse or other home services: No Alcohol intake: current Alcohol intake frequency: 0-2 drinks per day Patient Tobacco Use Status: Never used Tobacco Use of substances other than those prescribed or required for medical reasons: No Have you been hit, kicked, punched, or otherwise hurt by someone within the past year? If so, by whom?: No Are you DNR?: No Advance Directives: No Advance Directives Information Provided: Yes (brochure mailed) Advance Directives on File: No Recently lost weight without trying: No Eating poorly because of decreased appetite: No Nutrition Risks: No Nutritional Risk Meds Allergies Allergy/AdvReac Type Severity Reaction Status Date / Time No Known Allergies Allergy Verified 02/10/22 10:40 Home Medications Medication Instructions Recorded Confirmed Last Taken Type hydrochlorothiazide 25 mg tablet 25 mg PO DAILY 08/12/20 03/01/22 Unknown History olmesartan 40 mg tablet 40 mg PO DAILY 08/12/20 03/01/22 Unknown History omeprazole 40 mg capsule,delayed 40 mg PO BID 01/27/22 03/01/22 03/02/22 History release Exam Height,Weight and Vital Signs: Height 5 ft 7 in Weight 77.564 kg Vital Signs Temp Pulse Resp BP Pulse Ox O2 Del Method 03/02/22 06:20 97.0 F 76 16 145/72 H 100 Room Air Airway Heart: RRR Lungs: CTAB Assessment and Plan Assessment Anesthesia Assessment: Anesthesia Plan Discussed Final Anesthetic Review NPO: Yes ASA Class: II Final Preanesthetic Review: No Changes in Pt Med Stat, Meds/Allgs Chart Reviewed, Consent Obtained/Reviewed and Anes Risks/Benef Reviewed Patient Risk: Low Procedure Risk: Low Assessment/Block/Sedation in SS: Assess/Block/Sedation-SS Anesthetic Plan Anesthetic Plan: GA Disposition: Standard PACU
[2022-03-02 06:20] VITALS: BP 145/72; PULSE 76; RESP 16; TEMP 36.1; O2SAT 100
[2022-03-02] MEDS: Lactated Ringers 1,000 ML 100 ML IVCONT (06:34)
[2022-03-02] MEDS: Metoclopramide HCl 10 MG/2 ML VIAL IVPUSH (07:26)
--- NOTE | 2022-03-02 08:30 | W.PM.OPN ---
Operative Note Operative Note Date of Service: 03/02/22 Narrative: Preoperative diagnosis: Right breast invasive ductal carcinoma Postoperative diagnosis: Same Procedure: Right breast wide excision invasive ductal carcinoma Surgeon: Vinicio Mclean MD [employer] Specialists: BIBI Rdz Anesthesia: General LMA Indications for procedure: 56-year-old female patient found to have a new density in the right breast at the upper outer quadrant, status post lumpectomy with needle localization, sentinel node biopsy. Pathology revealed invasive ductal carcinoma with DCIS extending to within microns of the margin the lateral and inferior margins. Patient presents for wider excision to assure negative margins. Operative findings: Previous biopsy cavity not entered. Wide excision concentrating on the lateral and inferior margin. Specimen: Wide excision right breast. Estimated blood loss: 5 mL Complications: None Procedure details: Patient was brought to the OR and placed in a supine position. After administering general anesthesia the patient's right breast was prepped with ChloraPrep and draped in a sterile fashion. A surgical time-out was called the consent confirmed. Patient received preoperative antibiotics and Venodyne boots were in place. Local anesthesia consisting of 0.5% Sensorcaine was infiltrated around the previous incision in the upper outer quadrant. Elliptical incision was then made to include the previous incision, carried down through subcutaneous tissue. Superior inferior skin flaps were then created using electrocautery. Sharp dissection with Metzenbaum scissors was then used to excise the previous incision and a core of tissue around the previous calf the capsule obtained. This was sent to pathology for further examination. Hemostasis was assured using electrocautery. Deep breast tissue was then reapproximated using interrupted 3-0 Polysorb sutures. Superficial breast tissue was reapproximated using interrupted 3-0 Polysorb sutures. Skin was then closed using a running subcuticular 4-0 Polysorb suture. Steri-Strips, 2 x 2 gauze, and Tegaderm were then applied. The patient tolerated the procedure well. Sponge, instrument, and needle counts reported as correct. Patient was transferred to PACU in stable condition.
--- NOTE | 2022-03-02 08:35 | MHC.SHP ---
Pre-Procedural Eval Section A Date of Service: 03/02/22 The patient is an INPATIENT: No Changes since office visit: Yes Patient answered all questions; No Cold of Flu in the past 2 weeks, No New Medical Problems and No Changes in Medication The History & Physical has been completed within 30 days and I have reviewed it.: Yes Section B Chief Complaint: Malignant neoplasm of unspecified site of R breast Allergies: Allergies Allergy/AdvReac Type Severity Reaction Status Date / Time No Known Allergies Allergy Verified 02/10/22 10:40 Plan Diagnosis/Plan: Unchanged I have reviewed the history and physical and performed a pertinent physical examination on my patient. No changes have occurred unless specified.
[2022-03-02 08:38] VITALS: BP 108/59; PULSE 79; RESP 16; TEMP 36.4; O2SAT 99
[2022-03-02 08:43] VITALS: BP 112/65; PULSE 77; RESP 16; O2SAT 100
[2022-03-02 08:48] VITALS: BP 116/64; PULSE 80; RESP 16; O2SAT 96
[2022-03-02 08:53] VITALS: BP 115/67; PULSE 78; RESP 16; O2SAT 95
[2022-03-02 09:08] VITALS: BP 119/73; PULSE 74; RESP 16; TEMP 36.4; O2SAT 96
== END 2022-03-02 10:19 | disposition home or self-care (01) ==
PROVIDERS: PCP Internal Medicine; Visit Provider Surgery
PROC: (CPT 19120; principal; 2022-03-02 07:30)
DX: C50.411 Malignant neoplasm of upper-outer quadrant of right female breast (principal); Z17.0 Estrogen receptor positive status [ER+]; Z98.82 Breast implant status; I10 Essential (primary) hypertension; I49.3 Ventricular premature depolarization; K21.9 Gastro-esophageal reflux disease without esophagitis; Z79.899 Other long term (current) drug therapy
CPT/HCPCS: 19301; 88307; 88341; 88342; J0690; J1100; J2250; J2405; J2765; J3010

== ENCOUNTER 2022-03-09 08:50 | Outpatient (REF) | payer OTHER, SELFPAY ==
--- NOTE | ~2022-03-09 | MM_ITS ---
EXAMINATION: BONE DENSITOMETRY CLINICAL INDICATION: Pre-chemotherapy evaluation. COMPARISON: Baseline BD dated 07/23/2020. TECHNIQUE: Using a [employer] DXA System (software version: 13.1) manufactured by [employer], dual-energy x-ray absorptiometry was performed of the lumbar spine and left hip. The images are of good technical quality. Summary results are attached. FINDINGS: AP SPINE L1-L4: Current: BMD 1.038 g/cm2, Z-score -0.6, T-score -1.2, osteopenia, 3.8% decrease from baseline (<5% change is not significant). Baseline: BMD 1.079 g/cm2. LEFT FEMUR, NECK: Current: BMD 0.703 g/cm2, Z-score -1.5, T-score -2.4, osteopenia. Baseline: BMD 0.752 g/cm2. LEFT FEMUR, TOTAL: Current: BMD 0.789 g/cm2, Z-score -1.2, T-score -1.7, osteopenia, 2.0% decrease from baseline (<5% change is not significant). Baseline: BMD 0.805 g/cm2. IDENTIFIED RISK FACTORS: Menopause, Thiazide. HISTORY OF FRACTURE: None listed. MEDICATIONS: Vitamin D. MM/XR DEXA axial skeleton IMPRESSION: 1. DIAGNOSIS: Osteopenia based on the lowest T-score value of -2.4 in the femoral neck applying World Health Organization criteria. 2. 10-YEAR FRACTURE RISK PREDICTION, FRAX: Major osteoporotic fracture (clinical spine, forearm, hip or shoulder) 10.6%. Hip fracture 1.8%. 3. Treatment Recommendations: NOF guidelines recommend consideration for treatment in postmenopausal women and men age 50 and older presenting with the following: -A hip or vertebral (clinical or morphometric) fracture. -T-score less than or equal to -2.5 at the femoral neck or spine after appropriate evaluation to exclude secondary causes. -Low bone mass at the hip or spine and a 10-year fracture probability by FRAX of greater than or equal to 3% for hip fracture or greater than or equal to 20% for major osteoporotic fracture based on the [place] adapted WHO algorithm. 4. Other Recommendations: All treatment decisions require clinical judgment and consideration of individual patient factors, including patient preferences, comorbidities, previous drug use, risk factors not captured in the FRAX model (e.g. frailty, falls, vitamin D deficiency, increased bone turnover, interval significant decline in bone density) and possible under or overestimation of fracture risk by FRAX. Additional medical evaluation for secondary cause of low bone mineral density may be appropriate. FUTURE SCAN RECOMMENDATION: People with diagnosed cases of osteoporosis or at high risk for fracture should have regular bone mineral density tests. For patients eligible for Medicare, routine testing is allowed once every 2 years. The testing frequency can be increased to one year for patients who have rapidly progressing disease, those who are receiving or discontinuing medical therapy to restore bone mass, or have additional risk factors.
== END 2022-03-09 08:51 | disposition home or self-care (01) ==
LOC: HO.MAMMO 08:50
PROVIDERS: PCP Internal Medicine; Visit Provider Internal Medicine
DX: Z13.820 Encounter for screening for osteoporosis (principal); M89.8X9 Other specified disorders of bone, unspecified site; C50.911 Malignant neoplasm of unspecified site of right female breast; Z78.0 Asymptomatic menopausal state
CPT/HCPCS: 77080

== ENCOUNTER 2022-03-29 08:37 | Outpatient (REF) | payer OTHER, SELFPAY ==
[2022-03-29 10:44] LABS: MANUAL DIFF FLAG NO
[2022-03-29 10:52] LABS: Basophils Percent Auto 0.6 % (0-2); Eosinophils Absolute Auto 0.2 X10*3/uL (0.0-0.4); Eosinophils Percent Auto 2.4 % (0-4); Hematocrit 36.6 % (37.0-47.0); Hemoglobin 11.9 g/dl (12.0-16.0); Imm Gran Abs Auto 0.01 X10*3/uL (0.00-0.03); Imm Gran Pct Auto 0.2 % (0.0-0.4); Lymphocytes Absolute Auto 2.1 X10*3/uL (1.2-4.9); Lymphocytes Percent Auto 33.6 % (20-40); Mean Corpuscular HGB Conc 32.5 g/dl (31.0-35.0); Mean Corpuscular Hemoglobin 30.1 pg (27.0-33.0); Mean Corpuscular Volume 92.4 fL (80.0-98.0); Mean Platelet Volume 11.8 fL (9.4-12.3); Monocytes Absolute Auto 0.5 X10*3/uL (0.1-1.2); Neutrophils Absolute Auto 3.5 x10*3/uL (2.0-8.3); Neutrophils Percent Auto 55.2 % (45-73); Platelet Count 253 X10*3/uL (160-400); Red Blood Count 3.96 X10*6/uL (4.20-5.50); Red Cell Distribution Width 13.2 % (11.0-16.0); White Blood Count 6.3 X10*3/uL (4.8-10.8)
[2022-03-29 11:00] LABS: Alanine Aminotransferase 34 U/L (0-31); Albumin Level 4.6 g/dL (3.5-5.0); Alkaline Phosphatase 71 U/L (39-117); Anion Gap 15 (12-20); Aspartate Amino Transferase 25 U/L (5-31); Bilirubin Total 0.5 mg/dL (0.0-1.0); Blood Urea Nitrogen 22 mg/dL (9-16); Calcium 9.3 mg/dL (8.4-10.2); Carbon Dioxide 26 mmol/L (22-29); Chloride 105 mmol/L (96-108); Cholesterol 277 mg/dL; Estimated Glomerular Filt Rate 53; Glucose Fasting 98 mg/dL (60-99); HDL Cholesterol 66 mg/dL; LDL Cholesterol Calculated 186 mg/dl; Potassium 3.9 mmol/L (3.3-5.1); Sodium 142 mmol/L (135-145); Triglycerides 127 mg/dL
== END 2022-03-29 08:38 | disposition home or self-care (01) ==
LOC: HO.10HDL 08:37
PROVIDERS: Visit Provider Internal Medicine
DX: Z00.00 Encounter for general adult medical examination without abnormal findings (principal); Z13.220 Encounter for screening for lipoid disorders
CPT/HCPCS: 36415; 80053; 80061; 85025

== ENCOUNTER 2022-03-29 14:57 | Outpatient (REF) | payer OTHER, SELFPAY ==
--- NOTE | ~2022-03-29 | XR_ITS ---
EXAMINATION: XR KNEE, RIGHT CLINICAL INFORMATION: Pain COMPARISON: None TECHNIQUE: Four views of the right knee. FINDINGS: No acute visible fracture or dislocation. Mild multicompartment degenerative changes. Mild spurring the tibial spines. Very mild narrowing medial femorotibial compartment. A fabella is noted in the posterior compartment. Joint spaces and alignment are maintained. Small knee joint effusion. Soft tissues are unremarkable. XR/XR knee RT 4V IMPRESSION: 1. No acute visible fracture or dislocation. 2. Mild multicompartment degenerative changes. 3. Small knee joint effusion.
== END 2022-03-29 14:58 | disposition home or self-care (01) ==
LOC: HO.XRAY 14:57
PROVIDERS: PCP Internal Medicine; Visit Provider Internal Medicine
DX: M25.561 Pain in right knee (principal)
CPT/HCPCS: 73564

== ENCOUNTER 2022-04-06 08:20 | Outpatient (REF) | payer OTHER, SELFPAY ==
[2022-04-09 12:47] LABS: HPV mRNA E6/E7 rflx Not Detected (Not Detected)
== END 2022-04-06 08:21 | disposition home or self-care (01) ==
LOC: HO.LAB 08:20
PROVIDERS: Visit Provider Obstetrics & Gynecology
DX: Z01.419 Encounter for gynecological examination (general) (routine) without abnormal findings (principal); Z11.51 Encounter for screening for human papillomavirus (HPV)
CPT/HCPCS: 87624; 88142

== ENCOUNTER 2022-04-14 12:59 | Outpatient (REF) | payer OTHER, SELFPAY ==
--- NOTE | ~2022-04-14 | MR_ITS ---
EXAMINATION: MR LUMBAR SPINE WITHOUT CONTRAST CLINICAL INFORMATION: Low back pain. Leg numbness. Rule out stenosis. COMPARISON: None TECHNIQUE: MRI of the lumbar spine was obtained using routine sequences without contrast. FINDINGS: Lumbar vertebral bodies maintain normal heights and alignment. No significant disc height loss is seen. There is no bone marrow edema. The distal spinal cord appears normal. The conus medullaris terminates normally at the L1 level. The extraspinal soft tissues are within normal limits. SPINAL LEVELS: T11-T12: Central extrusion with mild superior migration. No spinal canal or neural foraminal stenosis. L1-L2: No posterior disc abnormality. No spinal canal or neural foraminal stenosis. L2-L3: Shallow left foraminal protrusion. No spinal canal or neural foraminal stenosis. L3-L4: Disc bulging with right subarticular/foraminal protrusion causing abutment of the traversing right L4 nerve root. Mild right neural foraminal stenosis. No spinal canal stenosis. L4-L5: Mild disc bulging with mild to moderate facet arthropathy. No spinal canal stenosis. Right foraminal protrusion mildly narrows the right neural foramen. L5-S1: No posterior disc abnormality. Mild facet arthropathy. No spinal canal or neural foraminal stenosis. MR/MR lumbar spine wo con IMPRESSION: Mild multilevel degenerative spondylosis without significant narrowing of the spinal canal. At L3-L4 there is abutment of the traversing right L4 nerve root in the subarticular zone. At L4-L5 there is right foraminal protrusion with mild narrowing of the right neural foramen.
== END 2022-04-14 13:00 | disposition home or self-care (01) ==
LOC: HO.MRI 12:59
PROVIDERS: PCP Internal Medicine; Visit Provider Internal Medicine
DX: M54.50 Low back pain, unspecified (principal); R20.2 Paresthesia of skin
CPT/HCPCS: 72148

== ENCOUNTER → 2022-08-02 08:20 | Outpatient (BNV) | payer OTHER, SELFPAY | PROVIDERS: PCP Internal Medicine; Referring Provider Surgery; Visit Provider Internal Medicine | DX: C50.911 Malignant neoplasm of unspecified site of right female breast (principal) | CPT/HCPCS: 99214 ==

== ENCOUNTER 2022-12-05 15:19 | Outpatient (REF) | payer OTHER, SELFPAY ==
[2022-12-05 15:57] LABS: Alanine Aminotransferase 26 U/L (0-31); Albumin Level 4.9 g/dL (3.5-5.0); Alkaline Phosphatase 71 U/L (39-117); Anion Gap 18 (12-20); Aspartate Amino Transferase 25 U/L (5-31); Bilirubin Total 1.2 mg/dL (0.0-1.0); Blood Urea Nitrogen 11 mg/dL (9-16); Calcium 9.8 mg/dL (8.4-10.2); Carbon Dioxide 27 mmol/L (22-29); Chloride 102 mmol/L (96-108); Estimated Glomerular Filt Rate > 60; Glucose Random 84 mg/dL (60-115); Potassium 3.8 mmol/L (3.3-5.1); Sodium 143 mmol/L (135-145); Total Protein 7.3 g/dL (6.5-8.0)
== END 2022-12-05 15:20 | disposition home or self-care (01) ==
LOC: HO.LAB 15:19
PROVIDERS: PCP Internal Medicine; Visit Provider Internal Medicine
DX: C50.911 Malignant neoplasm of unspecified site of right female breast (principal)
CPT/HCPCS: 36415; 80053

== ENCOUNTER 2023-06-05 10:59 | Outpatient (REF) | payer OTHER, SELFPAY ==
[2023-06-05 11:17] LABS: MANUAL DIFF FLAG NO
[2023-06-05 11:28] LABS: Basophils Absolute Auto 0.1 X10*3/uL (0.0-0.2); Basophils Percent Auto 0.9 % (0-2); Eosinophils Absolute Auto 0.2 X10*3/uL (0.0-0.4); Eosinophils Percent Auto 2.2 % (0-4); Hematocrit 36.5 % (37.0-47.0); Imm Gran Abs Auto 0.03 X10*3/uL (0.00-0.03); Imm Gran Pct Auto 0.4 % (0.0-0.4); Lymphocytes Percent Auto 28.8 % (20-40); Mean Corpuscular HGB Conc 32.9 g/dl (31.0-35.0); Mean Corpuscular Volume 91.3 fL (80.0-98.0); Mean Platelet Volume 10.2 fL (9.4-12.3); Monocytes Absolute Auto 0.5 X10*3/uL (0.1-1.2); Monocytes Percent Auto 7.8 % (2-11); Neutrophils Absolute Auto 4.1 x10*3/uL (2.0-8.3); Neutrophils Percent Auto 59.9 % (45-73); Platelet Count 241 X10*3/uL (160-400); Red Cell Distribution Width 13.4 % (11.0-16.0); White Blood Count 6.9 X10*3/uL (4.8-10.8)
[2023-06-05 11:36] LABS: Alanine Aminotransferase 91 U/L (0-31); Albumin Level 4.6 g/dL (3.5-5.0); Alkaline Phosphatase 99 U/L (39-117); Anion Gap 12 (12-20); Aspartate Amino Transferase 66 U/L (5-31); Bilirubin Total 0.5 mg/dL (0.0-1.0); Blood Urea Nitrogen 15 mg/dL (9-16); Calcium 9.9 mg/dL (8.4-10.2); Carbon Dioxide 28 mmol/L (22-29); Chloride 105 mmol/L (96-108); Estimated Glomerular Filt Rate > 60; Glucose Random 91 mg/dL (60-115); Sodium 141 mmol/L (135-145); Total Protein 7.4 g/dL (6.5-8.0)
== END 2023-06-05 11:00 | disposition home or self-care (01) ==
LOC: HO.LAB 10:59
PROVIDERS: PCP Internal Medicine; Visit Provider Internal Medicine
DX: C50.911 Malignant neoplasm of unspecified site of right female breast (principal)
CPT/HCPCS: 36415; 80053; 85025

== ENCOUNTER 2023-06-07 08:10 | Outpatient (AMB) | payer OTHER, SELFPAY ==
[2023-06-07 08:19] VITALS: BP 116/72; BMI 25.5
--- NOTE | 2023-06-07 08:19 | MHC.OFFVIS ---
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 No complaints. Last Pap/HPV was negative in 04/08 Last Mammogram was BI-RADS 4 in 01/07, biopsy showed invasive carcinoma and DCIS, the patient underwent double mastectomy at [facility] last year Last Colonoscopy was 9 years ago, the patient will be due for next screening colonoscopy in a year [facility] Medical History FH: mastectomy COVID-19 vaccine series completed GERD (gastroesophageal reflux disease) Abnormal ultrasound of breast PVC (premature ventricular contraction) Essential hypertension Surgical History H/O breast reconstruction (~03/08/23) History of lumpectomy of right breast (03/02/22) History of lumpectomy of right breast (02/02/22) History of sinus surgery History of bilateral breast implants History of bunionectomy Family History Father Prostate CA Heart disease Mother Pancreatic cancer Paternal Aunt Ovarian cancer Social History Household Members: Spouse and Family Housing: House Do you presently have visiting nurse or other home services: No Alcohol intake: current Alcohol intake frequency: 0-2 drinks per day Patient Tobacco Use Status: Never used Tobacco Patient : No service: No Current occupational status: employed Female Reproductive History Menstrual Age of Menarche: 11 control method: none Total pregnancies: 1 Full term: 1 Number of Living Children: 1 Date of last pap smear: 04/06/22 (negative) Date of Mammogram: 01/13/22 Date of last Bone Density Screenin03/09/22 Physical Exam Vital Signs: Last Vital Signs BP 116/72 06/07/23 08:19 BMI result Body Mass Index 25.5 Chest Chest palpation & inspection: other (Status post double mastectomy and reconstruction) Breast/axilla palpation: other Assessment & Plan Assessment & Plan (1) Well woman exam: Code(s): Z01.419 - Encounter for gynecological examination (general) (routine) without abnormal findings Plan: Cotesting not indicated this year. The patient is status post double mastectomy. Counseled the patient about the recommended dietary allowance of 1000 mg of Calcium & 600 IU of vitamin D. The patient was instructed to schedule an annual exam in a year; All questions answered and the patient verbalized understanding. Instructed the patient to schedule annual exam in a year Coding Level of Care Code Est Pt Prev Care 40-64y(98811) Diagnoses Well woman exam Z01.419
== END 2023-06-07 08:45 | disposition home or self-care (01) ==
PROVIDERS: PCP Internal Medicine; Visit Provider Obstetrics & Gynecology
DX: Z01.419 Encounter for gynecological examination (general) (routine) without abnormal findings (principal)
CPT/HCPCS: 99396

== ENCOUNTER → 2023-06-07 08:10 | Outpatient (BNVA) | payer OTHER, SELFPAY | PROVIDERS: PCP Internal Medicine; Visit Provider Obstetrics & Gynecology ==

== ENCOUNTER 2024-06-11 07:55 | Outpatient (AMB) | payer OTHER, SELFPAY ==
[2024-06-11 07:57] VITALS: BP 122/86; BMI 25.6
--- NOTE | 2024-06-11 07:57 | A.OFFVIS_ITS ---
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 No complaints. Last Pap/HPV was negative in 04/08 Last Mammogram was BI-RADS 4 in 01/07, biopsy showed invasive carcinoma and DCIS, the patient underwent double mastectomy at [facility] last year Last Colonoscopy was 10 years ago, the patient is due for next screening colonoscopy this year Last DEXA scan was in 03/09 [facility] Medical History FH: mastectomy COVID-19 vaccine series completed GERD (gastroesophageal reflux disease) Abnormal ultrasound of breast PVC (premature ventricular contraction) Essential hypertension Surgical History H/O breast reconstruction (~03/08/23) History of lumpectomy of right breast (03/02/22) History of lumpectomy of right breast (02/02/22) History of sinus surgery History of bilateral breast implants History of bunionectomy Family History Father Prostate CA Heart disease Mother Pancreatic cancer Paternal Aunt Ovarian cancer Social History Household Members: Spouse and Family Housing: House Do you presently have visiting nurse or other home services: No Alcohol intake: current Alcohol intake frequency: 0-2 drinks per day Patient Tobacco Use Status: Never used Tobacco service: No Current occupational status: employed Female Reproductive History Menstrual Age of Menarche: 11 Menopause type: natural Total pregnancies: 1 Full term: 1 Number of Living Children: 1 Date of last pap smear: 04/06/22 Review of Systems Const All systems reviewed & are unremarkable except as noted in HPI and below Card Reports as per HPI Resp Reports as per HPI GI Reports as per HPI and Reports no additional complaints Reports as per HPI Physical Exam Vital Signs: Last Vital Signs BP 122/86 06/11/24 07:57 BMI result Body Mass Index 25.6 Const General: cooperative, healthy appearing and comfortable Resp Effort & Inspection: normal respiratory effort Auscultation: clear to auscultation bilaterally Percussion: percussion normal Cardio Palpation: normal PMI Rate: regular rate Rhythm: regular rhythm Heart sounds: no murmurs and no rubs Peripheral pulses: Peripheral pulses 2+ throughout GI Inspection: Yes normal to inspection Palpation (GI): Soft to palpation, nontender, no guarding, not rigid and No hepatosplenomegaly present Percussion: Yes normal to percussion Auscultation: normal bowel sounds Rectal Exam - Female: deferred General: Yes bladder normal to palpation External Female Exam: No lesion Speculum Exam - Vagina: normal appearance of the vagina, normal palpation, normal vaginal discharge and not erythematous Speculum Exam - Cervix: normal appearance of the cervix and normal palpation Bimanual exam- vagina & uterus: normal bimanual exam, normal palpation, uterine size normal, bladder normal to palpation, consistency normal and normal palpation Bimanual Exam- Adnexa, other: normal adnexae, no masses and no tenderness Assessment & Plan Assessment & Plan (1) Well woman exam: Code(s): Z01.419 - Encounter for gynecological examination (general) (routine) without abnormal findings Category: Medical Plan: Co testing not indicated this year. Counseled the patient about the recommended dietary allowance of 1200 mg of Calcium & 600 IU of vitamin D. The patient was referred to GI for screening colonoscopy . The patient was instructed to perform monthly self-breast exams and schedule annual exam in a year. DEXA scan ordered, instructions given the patient to schedule a 2 week follow-up appointment All questions answered and the patient verbalized understanding. Orders: Orders XR DEXA axial skeleton Today Z78.0 - Asymptomatic menopausal state Referrals Gastroenterology Referral Z12.11 - Encounter for screening for malignant neoplasm of colon Coding Level of Care Code Est Pt Prev Care 40-64y(80068) Diagnoses Well woman exam Z01.419
== END 2024-06-11 08:21 | disposition home or self-care (01) ==
PROVIDERS: PCP Internal Medicine; Visit Provider Obstetrics & Gynecology
DX: Z01.419 Encounter for gynecological examination (general) (routine) without abnormal findings (principal)
CPT/HCPCS: 99396

== ENCOUNTER → 2024-06-11 07:55 | Outpatient (BNVA) | payer OTHER, SELFPAY | PROVIDERS: PCP Internal Medicine; Visit Provider Obstetrics & Gynecology ==

== ENCOUNTER 2024-06-18 08:05 | Outpatient (REF) | payer OTHER, SELFPAY ==
--- NOTE | ~2024-06-18 | MM_ITS ---
EXAMINATION: BONE DENSITOMETRY CLINICAL INDICATION: Menopause. COMPARISON: Previous BD dated 03/09/2022 and baseline BD dated 07/23/2020. TECHNIQUE: Using a ROSTR DXA System (software version: 13.1) manufactured by [employer], dual-energy x-ray absorptiometry was performed of the lumbar spine and left hip. The images are of good technical quality. Summary results are attached. FINDINGS: LEFT FEMUR, NECK: Current: BMD 0.760 g/cm2, Z-score -0.9, T-score -2.0, osteopenia. Prior: BMD 0.703 g/cm2. Baseline: BMD 0.752 g/cm2. LEFT FEMUR, TOTAL: Current: BMD 0.841 g/cm2, Z-score -0.6, T-score -1.3, osteopenia, 6.6% increase from previous, 4.5% increase from baseline (<5% change is not significant). Prior: BMD 0.789 g/cm2. Baseline: BMD 0.805 g/cm2. AP SPINE L1-L4: Current: BMD 1.182 g/cm2, Z-score 1.0, T-score 0.0, normal, 13.9% increase from previous, 9.5% increase from baseline (<5% change is not significant). Prior: BMD 1.038 g/cm2. Baseline: BMD 1.079 g/cm2. IDENTIFIED RISK FACTORS: Menopause, thiazide, glucocorticoids (chronic), secondary osteoporosis (anorexia or bulimia). HISTORY OF FRACTURE: None listed. MEDICATIONS: Calcium, vitamin D, ERT/SERMS, Prolia. MM/XR DEXA axial skeleton IMPRESSION: 1. DIAGNOSIS: Osteopenia based on the lowest T-score value of -2.0 in the femoral neck applying World Health Organization criteria. 2. 10-YEAR FRACTURE RISK PREDICTION, FRAX: Not performed in this patient on estrogen or bone building treatments. 3. Treatment Recommendations: NOF guidelines recommend consideration for treatment in postmenopausal women and men age 50 and older presenting with the following: -A hip or vertebral (clinical or morphometric) fracture. -T-score less than or equal to -2.5 at the femoral neck or spine after appropriate evaluation to exclude secondary causes. -Low bone mass at the hip or spine and a 10-year fracture probability by FRAX of greater than or equal to 3% for hip fracture or greater than or equal to 20% for major osteoporotic fracture based on the [place] adapted WHO algorithm. 4. Other Recommendations: All treatment decisions require clinical judgment and consideration of individual patient factors, including patient preferences, comorbidities, previous drug use, risk factors not captured in the FRAX model (e.g. frailty, falls, vitamin D deficiency, increased bone turnover, interval significant decline in bone density) and possible under or overestimation of fracture risk by FRAX. Additional medical evaluation for secondary cause of low bone mineral density may be appropriate. FUTURE SCAN RECOMMENDATION: People with diagnosed cases of osteoporosis or at high risk for fracture should have regular bone mineral density tests. For patients eligible for Medicare, routine testing is allowed once every 2 years. The testing frequency can be increased to one year for patients who have rapidly progressing disease, those who are receiving or discontinuing medical therapy to restore bone mass, or have additional risk factors. Electronically signed by: Ana Rosa Anton MD 06/24/2024 04:54 PM EDT RP
== END 2024-06-18 08:06 | disposition home or self-care (01) ==
LOC: HO.MAMMO 08:05
PROVIDERS: PCP Internal Medicine; Visit Provider Obstetrics & Gynecology
DX: Z13.820 Encounter for screening for osteoporosis (principal); Z78.0 Asymptomatic menopausal state
CPT/HCPCS: 77080

== ENCOUNTER 2024-07-15 07:49 | Outpatient (AMB) | payer OTHER, SELFPAY ==
--- NOTE | 2024-07-15 07:47 | A.OFFVIS_ITS ---
Vital Signs 07/15/24 07:48 Height 5 ft 7.8 in Weight 164 lb BMI 25.1 BP 118/70 Blood Pressure Location Lt brachial Position Sitting Intake Visit Reasons: DEXA results Allergies No Known Allergies Allergy (Verified 07/15/24 07:48) HPI Comments Details: Presenting for DEXA scan follow-up with no complaints. The patient has been on Prolia for the last 2 years. Last DEXA scan done recently showed the following: LEFT FEMUR, NECK: Current: BMD 0.760 g/cm2, Z-score -0.9, T-score -2.0, osteopenia. Prior: BMD 0.703 g/cm2. Baseline: BMD 0.752 g/cm2. LEFT FEMUR, TOTAL: Current: BMD 0.841 g/cm2, Z-score -0.6, T-score -1.3, osteopenia, 6.6% increase from previous, 4.5% increase from baseline (<5% change is not significant). Prior: BMD 0.789 g/cm2. Baseline: BMD 0.805 g/cm2. AP SPINE L1-L4: Current: BMD 1.182 g/cm2, Z-score 1.0, T-score 0.0, normal, 13.9% increase from previous, 9.5% increase from baseline (<5% change is not significant). Prior: BMD 1.038 g/cm2. Baseline: BMD 1.079 g/cm2. [facility] Medical History FH: mastectomy COVID-19 vaccine series completed GERD (gastroesophageal reflux disease) Abnormal ultrasound of breast PVC (premature ventricular contraction) Essential hypertension Surgical History H/O breast reconstruction (~03/08/23) History of lumpectomy of right breast (03/02/22) History of lumpectomy of right breast (02/02/22) History of sinus surgery History of bilateral breast implants History of bunionectomy Family History Father Prostate CA Heart disease Mother Pancreatic cancer Paternal Aunt Ovarian cancer Social History Household Members: Spouse and Family Housing: House Do you presently have visiting nurse or other home services: No Alcohol intake: current Alcohol intake frequency: 0-2 drinks per day Patient Tobacco Use Status: Never used Tobacco service: No Current occupational status: employed Female Reproductive History Menstrual Age of Menarche: 11 Review of Systems Const All systems reviewed & are unremarkable except as noted in HPI and below Reports as per HPI and Reports no additional complaints GI Reports no additional complaints Reports no additional complaints Physical Exam Vital Signs: Last Vital Signs BP 118/70 07/15/24 07:48 BMI result Body Mass Index 25.1 Assessment & Plan Assessment & Plan (1) Osteopenia: Code(s): M85.80 - Other specified disorders of bone density and structure, unspecified site Category: Medical Plan: Discussed with the results of his of DEXA scan no evidence of 1st paper was then increase in the bone mineral density at the femur and the spine level baseline and previous study. Recommended to stay on Prolia and calcium with vitamin-D 1200 mg/800 IU p.o. q.d. All questions answered, the patient verbalized understanding Coding Level of Care Code Est Pt Level 3 (98867) Diagnoses Osteopenia M85.80
[2024-07-15 07:48] VITALS: BP 118/70; BMI 25.1
== END 2024-07-15 07:58 | disposition home or self-care (01) ==
LOC: HO.HWS 07:49
PROVIDERS: PCP Internal Medicine; Visit Provider Obstetrics & Gynecology
DX: M85.80 Other specified disorders of bone density and structure, unspecified site (principal)
CPT/HCPCS: 99213

== ENCOUNTER → 2024-07-15 07:49 | Outpatient (BNVA) | payer OTHER, SELFPAY | PROVIDERS: PCP Internal Medicine; Visit Provider Obstetrics & Gynecology ==

== ENCOUNTER 2024-11-11 07:54 | Outpatient (AMB) | payer OTHER, SELFPAY ==
--- NOTE | 2024-11-11 08:07 | MHC.OFFVIS ---
Vital Signs 11/11/24 08:08 Height 5 ft 8 in Weight 165 lb BMI 25.1 BP 128/72 Blood Pressure Location Lt brachial Position Sitting Pulse 82 Pulse Source Pulse Oximeter Pulse Oximetry (%) 99 Oxygen Delivery Method Room Air Intake Visit Reasons: Colonoscopy Screening Intake Note: NEW PATIENT for 2nd lifetime recall. Last > 10 years ago. Chief Complaint; Pt denies any GI concerns at this time. Routine screening w/o sx. [place] Required: No Allergies No Known Allergies Allergy (Verified 11/11/24 08:08) HPI HPI Colonoscopy Screening: Details: 59 year old? female with past medical history of hypertension, hyperlipidemia, breast CA, GERD is here today for pre colonoscopy screening.? Patient was sent to us by her PCP.? Last colonoscopy 5 years ago, normal.? Patient is taking omeprazole twice a day for about 2 years or so. ?Her symptoms of acid reflux are suppressed for for the most part. Patient reports sometimes she misses dose of omeprazole and does okay. Patient has history of right breast CA, underwent bilateral mastectomy in 2021.. Denies history of difficulty with sedation or anesthesia in the past.? Negative for history of sleep apnea.? Denies any history of cardiac, renal, pulmonary, or hepatic disease.?? No history of infectious? diseases like hepatitis A, B, C, HIV or tuberculosis.? Patient is not on any anticoagulation [facility] Medical History FH: mastectomy COVID-19 vaccine series completed GERD (gastroesophageal reflux disease) Abnormal ultrasound of breast PVC (premature ventricular contraction) Essential hypertension Surgical History H/O breast reconstruction (~03/08/23) History of lumpectomy of right breast (03/02/22) History of lumpectomy of right breast (02/02/22) History of sinus surgery History of bilateral breast implants History of bunionectomy Family History Father Prostate CA Heart disease Mother Pancreatic cancer Paternal Aunt Ovarian cancer Social History Household Members: Spouse and Family Housing: House Do you presently have visiting nurse or other home services: No Alcohol intake: current Alcohol intake frequency: 0-2 drinks per day Patient Tobacco Use Status: Never used Tobacco service: No Current occupational status: employed Female Reproductive History Menstrual Age of Menarche: 11 Review of Systems Const Denies weight gain and Denies weight loss ENT Reports no additional complaints, Denies dysphagia and Denies odynophagia Card Reports no additional complaints Resp Reports no additional complaints GI Denies abdominal pain, Denies belching, Denies melena, Denies bloating, Denies change in bowel habits, Denies dysphagia, Denies excessive flatus, Denies dyspepsia, Reports heartburn (occasional), Denies diarrhea, Denies loose stools, Denies nausea, Denies odynophagia and Denies vomiting Reports no additional complaints Musc Reports no additional complaints Neuro Reports no additional complaints Psych Reports no additional complaints Endo Reports no additional complaints Physical Exam Const General: healthy appearing, no acute distress and well developed Nutritional Appearance: well nourished Orientation/consciousness: patient oriented x3 Resp Effort & Inspection: normal respiratory effort, able to speak in complete sentences, no tracheal deviation and symmetric chest movement Auscultation: clear to auscultation bilaterally Cardio Rate: regular rate GI Inspection: Yes normal to inspection and No distended Palpation (GI): Soft to palpation, not firm, nontender and No hepatosplenomegaly present Auscultation: normal bowel sounds General: Yes no CVA tenderness Back/Spine/Pelvis Back: no CVA tenderness Skin General skin exam: elasticity normal, turgor normal and dry skin Neuro General: patient oriented x3 Psych Appearance: grossly normal Mental Status: mental status grossly normal Assessment & Plan Assessment & Plan (1) Screen for colon cancer: Code(s): Z12.11 - Encounter for screening for malignant neoplasm of colon (2) GERD (gastroesophageal reflux disease): Code(s): K21.9 - Gastro-esophageal reflux disease without esophagitis Qualifiers: Esophagitis presence: esophagitis presence not specified Qualified Code(s): K21.9 - Gastro-esophageal reflux disease without esophagitis Plan Patient denies any cardiac or respiratory symptoms.? Patient reports occasional acid reflux, however patient states that she is taking omeprazole and for the most part she is doing well. Patient states that sometimes she is okay even when she misses a dose or 2. Patient will be sent for upper endoscopy. She has been on omeprazole for over 2 years. Denies any issues with anesthesia in the past.? Denies any history of sleep apnea.? No history infectious diseases in the past or present.? Not on any anticoagulation therapy.? No family or personal history of colon cancer or polyps.? Patient denies melena, hematochezia, unintentional weight loss or ribbon like stools.? Discussed at length the pre-procedure,? prep, diet & medications as well as what to expect prior, during and after the procedure.?? Stressed the importance of good bowel prep.? Recommended the use of Vaseline or Calmoseptine OTC & baby wipes with bowel movements to promote comfort.? ?Patient verbalizes understanding and agrees to plan of care.? She was given the opportunity to ask questions and all questions answered.? We will see her after the procedure.? Medications: New bisacodyl (Dulcolax (bisacodyl)) take 4 tabs at noon the day before your colonoscopy 20 mg (4 x 5 mg) PO ONCE 1 day 4 tabs 0RF Z12.11 - Encounter for screening for malignant neoplasm of colon polyethylene glycol 3350 (Miralax) As directed by gastroenterology department at [facility] 238 grams PO ONCE 238 grams 0RF Z12.11 - Encounter for screening for malignant neoplasm of colon Coding Level of Care Code New Pt Level 3 (27127) Diagnoses Screen for colon cancer Z12.11 Gastroesophageal reflux disease, unspecified whether esophagitis present K21.9 Esophagitis presence: esophagitis presence not specified Time Spent (min) 40 Comment 30 minutes spent with patient and additional 10 minutes spent reviewing her records
[2024-11-11 08:08] VITALS: BP 128/72; PULSE 82; O2SAT 99; BMI 25.1
== END 2024-11-11 08:38 | disposition home or self-care (01) ==
PROVIDERS: PCP Internal Medicine; Visit Provider Nurse Practitioner Family
DX: Z01.818 Encounter for other preprocedural examination (principal); Z12.11 Encounter for screening for malignant neoplasm of colon; K21.9 Gastro-esophageal reflux disease without esophagitis
CPT/HCPCS: 99202

== ENCOUNTER → 2024-11-11 07:54 | Outpatient (BNVA) | payer OTHER, SELFPAY | PROVIDERS: PCP Internal Medicine; Visit Provider Nurse Practitioner Family ==

== ENCOUNTER 2025-02-03 08:41 | Outpatient (AMB) | payer OTHER, SELFPAY ==
--- NOTE | 2025-02-03 08:43 | MHC.PC.OV ---
Vital Signs 02/03/25 08:47 Height 5 ft 7 in Weight 76.204 kg BMI 26.3 BP 118/82 Respiration 16 Pulse 86 Pulse Source Pulse Oximeter Pulse Oximetry (%) 99 Oxygen Delivery Method Room Air Intake Visit Reasons: Routine - see comments Insurance Job Titles Required: No Accompanied by: Self / Same As Patient Allergies No Known Allergies Allergy (Verified 02/03/25 08:46) Medication List - Last Reconciled 02/03/25 by SHELBIE Kenny anastrozole (Arimidex) 1 mg PO DAILY atorvastatin 20 mg PO BEDTIME bisacodyl (Dulcolax (bisacodyl)) 20 mg (4 x 5 mg) PO ONCE 1 day cholecalciferol (vitamin D3) (Vitamin D3) 25 mcg PO DAILY hydrochlorothiazide 25 mg PO DAILY olmesartan 40 mg PO DAILY omeprazole 40 mg PO BID polyethylene glycol 3350 (Miralax) 238 grams PO ONCE HPI HPI Comments History of Present Illness Details 59 year old female with history htn, hld, invasive ductal carcinoma R breast presents to the office today for management of chronic conditions and to establish care. Overall she reports feeling well. Her daughter recently graduated from college this past weekend. She is reporting pain of the L second toe where she has a hammer toe that has been longstanding. She is able to ambulate but is looking for a referral to a client services director. She is also s/p bunionectomy about 30 years ago but is starting to develop another bunion of the R foot that is causing discomfort. She is also reporting reproducible pain of the bilateral upper chest. She feels this may have been related to moving bags of mulch/gardening. No radiation. No fevers, chills, cough, sob, retrosternal chest pressure. Taking ibuprofen with some effect. Hypertension- compliant with olmesartan and HCTZ. No adverse side effects. Reviewed last BMP with normal renal function and electrolytes. BP 118/82 Hyperlipidemia-last LDL 186, total cholesterol 277. Compliant with atorvastatin Invasive ductal carcinoma of the right breast- MSBR grade 3, ER positive/SC negative and HER2 negative. Lumpectomy 02/06 no metastatic carcinoma. s/p bilateral masstectomy [facility]. No chemo. On arimidex, prolia every 6 months. Genetic panel negative. Following with Dr. Chaudhry. Osteopenia- T-score of -2.4 on bone density in 2021. She started Prolia 60 mg every 6 months. Repeat bone density 07/11 shows improvement with T-score now-2.0 which is osteopenia. Vit D 22.9. Continue on supplementation. ROS: General: No fevers, malaise, unintentional weight loss HEENT: No blurred vision, diplopia. No sore throat, nasal congestion, rhinorrhea, sinus pain, ear pain Cardiovascular: No chest pressure, palpitations, or leg edema Respiratory: No shortness of breath, wheezing, cough Chest: see hpi GI: No abdominal pain, nausea, vomiting, diarrhea, constipation, melena, hematochezia : No dysuria, hematuria, increased urinary frequency, decreased urinary output MSK: see hpi Neuro: No headaches, weakness, paresthesias Skin: No rashes or lesions PE: Constitutional - Awake and Alert, No apparent distress Eyes - PERRLA, EOMI Cardiovascular - S1S2, RRR, No edema Respiratory - Normal lung expansion, Normal respiratory effort, No respiratory distress, CTA bilaterally Chest - ttp across bilateral upper chest Extremities - no calf tenderness bilaterally, no swelling MSK - L foot- hammer toe 2nd toe. R- hallux valgus R great toe with ttp Skin - Warm/Dry Neurological - Alert & oriented x3 Psychological - Appropriate affect [facility] Medical History (Updated 02/03/25 @ 09:34 by SHELBIE Kenny) FH: mastectomy COVID-19 vaccine series completed GERD (gastroesophageal reflux disease) Abnormal ultrasound of breast PVC (premature ventricular contraction) Essential hypertension Surgical History (Updated 01/08/25 @ 12:25 by Karen Newman) History of colonoscopy (~12/03/14) H/O breast reconstruction (~03/08/23) History of lumpectomy of right breast (03/02/22) History of lumpectomy of right breast (02/02/22) History of sinus surgery History of bilateral breast implants History of bunionectomy Family History Father Prostate CA Heart disease Mother Pancreatic cancer Paternal Aunt Ovarian cancer Social History Household Members: Spouse and Family Housing: House Do you presently have visiting nurse or other home services: No Alcohol intake: current Alcohol intake frequency: 0-2 drinks per day Patient Tobacco Use Status: Never used Tobacco service: No Current occupational status: employed Female Reproductive History Menstrual Age of Menarche: 11 Physical exam (Primary Care) Vital Signs: Last Vital Signs Pulse 86 02/03/25 08:47 Resp 16 02/03/25 08:47 BP 118/82 02/03/25 08:47 Pulse Ox 99 02/03/25 08:47 Oxygen Delivery Method Room Air 02/03/25 08:47 BMI result Body Mass Index 26.3 Tobacco/Smoking Status: Tobacco use Status Patient Tobacco Use Status Never used Tobacco 02/03/25 08:46 Coding Level of Care Code Tele New Pt Level 4 (25702) Complex EM visit Add On G2211 Diagnoses Hammer toe of left foot M20.42 Bunion of great toe of right foot M21.611 Essential hypertension I10 HLD (hyperlipidemia) E78.5 Invasive ductal carcinoma of right breast C50.911 Osteopenia M85.80 Assessment & Plan Assessment & Plan (1) Hammer toe of left foot: Code(s): M20.42 - Other hammer toe(s) (acquired), left foot Category: Medical Plan: Not limiting ambulation. Can consider pressure bandage to prevent skin breakdown. X-ray of the left foot is ordered for further evaluation and she is referred to Podiatry. (2) Bunion of great toe of right foot: Code(s): M21.611 - Bunion of right foot Category: Medical Plan: s/p bunionectomy about 30 years ago. She has a recurrence of hallux valgus of the right great toe. X-ray of the right foot is ordered and she is referred to Podiatry for further evaluation and management (3) Essential hypertension: Code(s): I10 - Essential (primary) hypertension Category: Medical Plan: Controlled with blood pressure 118/82. Continue olmesartan 40 mg daily and hydrochlorothiazide 25 mg daily. Reviewed recent labs showing normal renal function and electrolyte levels. (4) HLD (hyperlipidemia): Code(s): E78.5 - Hyperlipidemia, unspecified Category: Medical Plan: Lipid panel ordered to be completed fasting prior to next visit. She will continue on atorvastatin at bedtime. Low-fat diet advised. (5) Invasive ductal carcinoma of right breast: Code(s): C50.911 - Malignant neoplasm of unspecified site of right female breast Category: Medical Plan: Reviewed oncology notes. Continue following with Dr. Chaudhry. Continue arimedex as prescribed which is tolerated well. (6) Osteopenia: Code(s): M85.80 - Other specified disorders of bone density and structure, unspecified site Category: Medical Plan: Reviewed most recent DEXA scan 07/11 with t-score -2.0. Continue with vitamin d supplementation and weight bearing exercise. Plan Follow up for physical exam with labs completed prior to visit. XRay of bilateral feet ordered with referral to podiatry. Continue medications as orderd. Orders: Orders XR Foot Delta 2V Today M20.42 - Other hammer toe(s) (acquired), left foot, M21.611 - Bunion of right foot Basic Metabolic Panel Today E78.5 - Hyperlipidemia, unspecified, I10 - Essential (primary) hypertension, M85.80 - Other specified disorders of bone density and structure, unspecified site Hemoglobin A1c Today E78.5 - Hyperlipidemia, unspecified, I10 - Essential (primary) hypertension, M85.80 - Other specified disorders of bone density and structure, unspecified site Lipid Panel Today E78.5 - Hyperlipidemia, unspecified, I10 - Essential (primary) hypertension, M85.80 - Other specified disorders of bone density and structure, unspecified site Liver Panel Today E78.5 - Hyperlipidemia, unspecified, I10 - Essential (primary) hypertension, M85.80 - Other specified disorders of bone density and structure, unspecified site TSH reflex Free T4 Today E78.5 - Hyperlipidemia, unspecified, I10 - Essential (primary) hypertension, M85.80 - Other specified disorders of bone density and structure, unspecified site Referrals Podiatry Referral M20.42 - Other hammer toe(s) (acquired), left foot, M21.611 - Bunion of right foot Medications: New hydrochlorothiazide 25 mg PO DAILY 90 tabs 1RF omeprazole 40 mg PO BID 180 caps 1RF Changed From atorvastatin 1 tab PO BEDTIME To atorvastatin 20 mg PO BEDTIME 90 tabs 1RF Refilled olmesartan 40 mg PO DAILY 90 tabs 1RF
[2025-02-03 08:47] VITALS: BP 118/82; PULSE 86; RESP 16; O2SAT 99; BMI 26.3
== END 2025-02-03 09:13 | disposition home or self-care (01) ==
LOC: HO.HMCHD 08:42
PROVIDERS: PCP Physician Assistant; Visit Provider Physician Assistant
DX: M20.42 Other hammer toe(s) (acquired), left foot (principal); M21.611 Bunion of right foot; I10 Essential (primary) hypertension; E78.5 Hyperlipidemia, unspecified; C50.911 Malignant neoplasm of unspecified site of right female breast; M85.80 Other specified disorders of bone density and structure, unspecified site

== ENCOUNTER 2025-02-03 08:41 | Outpatient (REF) | payer OTHER, SELFPAY ==
--- NOTE | ~2025-02-03 | XR_ITS ---
CLINICAL HISTORY: M20.42 - Other hammer toe(s) (acquired), left foot Exam: 1. AP, lateral, and oblique views of the left foot. 2. AP, lateral, and oblique views of the right foot Comparison: None. Findings: Left foot: Patient has undergone prior bunionectomy. Cortical thickening along the medial aspect of the distal 1st metatarsal. No fracture or bony destructive changes seen at that area. Mild hammertoe deformities of the 2nd through 5th toes. Lisfranc articulation is anatomically aligned. No acute fracture. Right foot: [id number] hallux valgus with bunion formation. Mild hammertoe deformities of the 2nd through 5th toes. Alignment of the Lisfranc articulation is anatomic. No acute fracture erosion Impression: Left foot: Hammertoe deformities with prior bunionectomy. Right foot: Hallux valgus with bunion formation. Hammertoe deformity. This document has been electronically signed by: Mayco Arriaga MD on 02/04/2025 06:46:51
== END 2025-02-03 08:42 | disposition home or self-care (01) ==
LOC: HO.XRAY 08:41
PROVIDERS: PCP Physician Assistant; Visit Provider Physician Assistant
DX: M20.42 Other hammer toe(s) (acquired), left foot (principal); M21.611 Bunion of right foot; Z98.890 Other specified postprocedural states; M20.11 Hallux valgus (acquired), right foot
CPT/HCPCS: 73620; 73630

== ENCOUNTER → 2025-02-03 09:24 | Outpatient (BNV) | payer OTHER, SELFPAY | PROVIDERS: PCP Physician Assistant; Visit Provider Radiology Diagnostic Radiology | DX: M20.11 Hallux valgus (acquired), right foot (principal) | CPT/HCPCS: 73620 ==

== ENCOUNTER 2025-03-10 07:47 | Outpatient (REF) | payer OTHER, SELFPAY ==
[2025-03-10 10:49] LABS: Estimated Average Glucose 97 mg/dL; Total Hemoglobin (HGBA1C) 3128.9148 umol/L
[2025-03-10 10:50] LABS: Alanine Aminotransferase 137 U/L (0-31); Albumin Level 4.7 g/dL (3.5-5.0); Alkaline Phosphatase 84 U/L (39-117); Anion Gap 12 (12-20); Aspartate Amino Transferase 121 U/L (5-31); Bilirubin Direct 0.2 mg/dL (0.0-0.5); Bilirubin Total 0.6 mg/dL (0.0-1.0); Blood Urea Nitrogen 13 mg/dL (9-16); Calcium 9.6 mg/dL (8.4-10.2); Carbon Dioxide 27 mmol/L (22-29); Chloride 107 mmol/L (96-108); Cholesterol 233 mg/dL (<200); Estimated Glomerular Filt Rate > 60; Glucose Random 88 mg/dL (60-115); HDL Cholesterol 60 mg/dL (>40); LDL Cholesterol Calculated 126 mg/dL (<100); Potassium 3.9 mmol/L (3.3-5.1); Sodium 142 mmol/L (135-145); Triglycerides 238 mg/dL (<150)
[2025-03-10 11:07] LABS: TSH reflex Free T4 1.48 uIU/mL (0.32-4.0)
[2025-03-11 09:22] LABS: Gamma Glutamyl Transpeptidase 348 U/L (7-33)
== END 2025-03-10 07:48 | disposition home or self-care (01) ==
LOC: HO.10HDL 07:47
PROVIDERS: Visit Provider Physician Assistant
DX: E78.5 Hyperlipidemia, unspecified (principal); M85.80 Other specified disorders of bone density and structure, unspecified site; I10 Essential (primary) hypertension; R74.8 Abnormal levels of other serum enzymes; Z13.1 Encounter for screening for diabetes mellitus
CPT/HCPCS: 36415; 80048; 80061; 80076; 82977; 83036; 84443

== ENCOUNTER 2025-03-11 08:21 | Outpatient (REF) | payer OTHER, SELFPAY | END 2025-03-11 08:22 | disposition home or self-care (01) | LOC: HO.LAB 08:21 | PROVIDERS: PCP Physician Assistant; Visit Provider Physician Assistant | DX: Z13.89 Encounter for screening for other disorder (principal) ==

== ENCOUNTER 2025-03-11 08:21 | Outpatient (AMB) | payer OTHER, SELFPAY ==
--- NOTE | 2025-03-11 08:24 | A.OFFPC_ITS ---
Vital Signs 03/11/25 08:29 03/11/25 09:04 Height 5 ft 7 in Weight 78.018 kg BMI 26.9 BP 144/98 H 170/94 H Pulse 79 Pulse Source Pulse Oximeter Temp 97.9 F Temp Source Temporal Artery Scan Pulse Oximetry (%) 98 Oxygen Delivery Method Room Air Intake Visit Reasons: Annual - see comments Manager Imaging Required: No Accompanied by: Self / Same As Patient Allergies No Known Allergies Allergy (Verified 03/11/25 08:24) Medication List - Last Reconciled 03/11/25 by SHELBIE Kenny anastrozole (Arimidex) 1 mg PO DAILY atorvastatin 20 mg PO BEDTIME bisacodyl (Dulcolax (bisacodyl)) 20 mg (4 x 5 mg) PO ONCE 1 day cholecalciferol (vitamin D3) (Vitamin D3) 25 mcg PO DAILY hydrochlorothiazide 25 mg PO DAILY olmesartan 40 mg PO DAILY omeprazole 40 mg PO BID polyethylene glycol 3350 (Miralax) 238 grams PO ONCE zolpidem 5 mg PO BEDTIME PRN HPI HPI Comments History of Present Illness Details 59 year old female with history htn, hld , invasive ductal carcinoma R breast presents to the office today for annual physical exam. She currently lives at home with her at [facility] safe there. She is employed. She denies any regular alcohol use. No history of cigarette smoking. No illicit drug use. Does to THC gummies to help with sleep. Hypertension- compliant with olmesartan and HCTZ. No adverse side effects. Reviewed last BMP with normal renal function and electrolytes. Blood pressure elevated at 170/94 on recheck. Currently asymptomatic. She does check her blood pressures at home which are typically within normal limits and prior blood pressures in the office have been within normal limits. She questions whether this is related to her lack of sleep. Hyperlipidemia-last LDL 122, total cholesterol 233, trig 238. Compliant with atorvastatin Invasive ductal carcinoma of the right breast- MSBR grade 3, ER positive/DE negative and HER2 negative. Lumpectomy 02/06 no metastatic carcinoma. s/p bilateral masstectomy [facility]. No chemo. On arimidex (year 3 of ), prolia every 6 months. Genetic panel negative. Following with Dr. Chaudhry. Osteopenia- T-score of -2.4 on bone density in 2021. She started Prolia 60 mg every 6 months. Repeat bone density 07/11 shows improvement with T-score now-2.0 which is osteopenia. Vit D 22.9. Continue on supplementation. Hammer toe/bunion- addressed at last visit. Has upcoming podiatry appt Elevated LFT's- chronic, but significantly elevated from baseline [id number]. GGT 348 Concerns: Insomnia- falls asleep without difficulty but unable to stay asleep. Has tried trazodone and melatonin. Takes THC gummies. Still waking up, unable to fall back asleep. No anxiety. Has good sleep hygeine routine Health maintenance: No longer undergoing mammograms per oncology Last DEXA scan 2023 Last Pap smear 03/2022, next due 03/2027 Last colonoscopy 11/2014. Overdue/ordered by Dr. Carlin Skin check-upcoming appointment April in [place] Reviewed past medical history, social history, family history, surgical history ROS: General: No fevers, malaise, unintentional weight loss HEENT: No blurred vision, diplopia. No sore throat, nasal congestion, rhinorrhea, sinus pain, ear pain Neck - no adenopathy Cardiovascular: No chest pain, palpitations, or leg edema Respiratory: No shortness of breath, wheezing, cough Breast: see hpi GI: No abdominal pain, nausea, vomiting, diarrhea, constipation, melena, hematochezia : No dysuria, hematuria, increased urinary frequency, decreased urinary output MSK: No myalgia, arthralgias. see hpi Neuro: No headaches, weakness, paresthesias Psych: no depression/anxiery. No AH/VH. No SI/HI. +insomnia Skin: No rashes or lesions PFSH Medical History (Updated 03/11/25 @ 09:51 by SHELBIE Kenny) Insomnia Elevated liver enzymes FH: mastectomy COVID-19 vaccine series completed GERD (gastroesophageal reflux disease) Abnormal ultrasound of breast PVC (premature ventricular contraction) Essential hypertension Surgical History (Updated 01/08/25 @ 12:25 by Karen Newman) History of colonoscopy (~12/03/14) H/O breast reconstruction (~03/08/23) History of lumpectomy of right breast (03/02/22) History of lumpectomy of right breast (02/02/22) History of sinus surgery History of bilateral breast implants History of bunionectomy Family History Father Prostate CA Heart disease Mother Pancreatic cancer Paternal Aunt Ovarian cancer Social History Household Members: Spouse and Family Housing: House Do you presently have visiting nurse or other home services: No Alcohol intake: current Alcohol intake frequency: 0-2 drinks per day Patient Tobacco Use Status: Never used Tobacco service: No Current occupational status: employed Female Reproductive History Menstrual Age of Menarche: 11 Questionnaire PHQ-9 Over the last 2 weeks, how often have you been bothered by any of the following problems? 1. Little interest or pleasure in doing things: not at all 2. Feeling down, depressed, or hopeless: not at all 3. Trouble falling or staying asleep, or sleeping too much: nearly every day 4. Feeling tired or having little energy: not at all 5. Poor appetite or overeating: not at all 6. Feeling bad about yourself - or that you are a failure or have let yourself or your family down: not at all 7. Trouble concentrating on things, such as reading the newspaper or watching television: not at all 8. Moving or speaking so slowly that other people could have noticed. Or the opposite - being so fidgety or restless that you have been moving around a lot more than usual: not at all 9. Thoughts that you would be better off or of hurting yourself in some way: not at all Total score: 3 Source: Developed by Drs. Guanaco Mireles, Yasmin Fernandes, Aniket Ortiz and colleagues, with an educational unruly from [employer]. Thrive Questionnaire Date Thrive assessed: 03/11/25 I am a: Patient What is your living situation today?: I have a steady place to live Within the past 12 months, did the food you bought not last and you didn't have the money to get more?: Never true Within the past 12 months, did you worry whether your food would run out before you got money to buy more?: Never true Do you have trouble paying for medicines?: No Do you have trouble getting transportation to medical appointments?: No Do you have trouble paying your heating and electricity bill?: No Do you have trouble taking care of your child, family member or friend?: No Do you have trouble with day-to-day activities such as bathing, preparing meals, shopping, managing finances, etc.?: No Are you currently unemployed and looking for a job?: No Are you interested in more education?: No Please select the resources that you would like help with: None THRIVE Score: 0 JEANNE-7 AMB Questionnaire JEANNE-7 Date JEANNE - 7 assessed: 03/11/25 Feeling nervous, anxious, or on edge: 0 = Not at all Not being able to stop or control worryin = Not at all Worrying too much about different things: 0 = Not at all Trouble relaxin = Nearly every day Being so restless that it is hard to sit still: 0 = Not at all Becoming easily annoyed or irritable: 0 = Not at all Feeling afraid as if something awful might happen: 0 = Not at all Total JEANNE-7 score (0-4 normal; 5-9 mild; 10-14 moderate; 15-21 severe): 3 Source: Developed by Drs. Guanaco Mireles, Yasmin Fernandes, Aniket Ortiz and colleagues, with an educational unruly from [employer]. Physical exam (Primary Care) Vital Signs: Last Vital Signs Temp 97.9 F 03/11/25 08:29 Pulse 79 03/11/25 08:29 BP 170/94 H 03/11/25 09:04 Pulse Ox 98 03/11/25 08:29 Oxygen Delivery Method Room Air 03/11/25 08:29 BMI result Body Mass Index 26.9 Tobacco/Smoking Status: Tobacco use Status Patient Tobacco Use Status Never used Tobacco 03/11/25 08:26 PHQ-9: PHQ-9 Score PHQ-9: Total score 3 03/11/25 08:43 Thrive Assessment: Date of Thrive Assessment Date Thrive assessed 03/11/25 03/11/25 08:32 Coding Level of Care Code Complex EM visit Add On G2211 Diagnoses Routine medical exam Z00.00 Essential hypertension I10 Elevated liver enzymes R74.8 HLD (hyperlipidemia) E78.5 Insomnia G47.00 Assessment & Plan Assessment & Plan (1) Routine medical exam: Code(s): Z00.00 - Encounter for general adult medical examination without abnormal findings Plan: 59-year-old female presenting for annual physical exam. Continue following with specialists. Reviewed past medical, social, family, surgical history. Further plan as below (2) Essential hypertension: Code(s): I10 - Essential (primary) hypertension Category: Medical Plan: Significantly elevated today at 170/94. Previously well controlled in recent visits as well as at home. We will trial zolpidem to improve sleep which may be impacting blood pressure. She will follow-up in 1 month. (3) Elevated liver enzymes: Code(s): R74.8 - Abnormal levels of other serum enzymes Category: Medical Plan: GTT ordered. Bili within normal limits, doubt obstruction. Right upper quadrant ultrasound ordered. We will consider discontinuing atorvastatin pending results. Currently asymptomatic (4) HLD (hyperlipidemia): Code(s): E78.5 - Hyperlipidemia, unspecified Category: Medical Plan: Improved but remains uncontrolled with total cholesterol 233, LDL 126. Continue atorvastatin for now, we will consider discontinuing pending results of liver studies. Continue diet low in saturated fats and highly processed foods. (5) Insomnia: Code(s): G47.00 - Insomnia, unspecified Category: Medical Plan: Trials zolpidem. Counseled on dosing and side effects. Mass pat reviewed. Plan Routine screening labs as ordered below Continue with screening mammograms, Pap smears, colonoscopies Continue following for annual skin exams and use sun protection Annual eye exams Wear seat belt in car Recommend regular exercise and healthy diet Follow-up in 1 month for review of insomnia and recheck of blood pressures. Continue checking BP at home Orders: Orders US abdomen limited Today R74.8 - Abnormal levels of other serum enzymes Gamma Glutamyl Transpeptidase Today R74.8 - Abnormal levels of other serum enzymes Medications: New zolpidem 5 mg PO BEDTIME PRN 30 tabs 0RF sleep
[2025-03-11 08:29] VITALS: BP 144/98; PULSE 79; TEMP 36.6; O2SAT 98; BMI 26.9
[2025-03-11 09:04] VITALS: BP 170/94
== END 2025-03-11 09:08 | disposition home or self-care (01) ==
LOC: HO.HMCHD 08:22
PROVIDERS: PCP Physician Assistant; Visit Provider Physician Assistant
DX: Z00.00 Encounter for general adult medical examination without abnormal findings (principal); I10 Essential (primary) hypertension; R74.8 Abnormal levels of other serum enzymes; E78.5 Hyperlipidemia, unspecified; G47.00 Insomnia, unspecified

== ENCOUNTER 2025-04-01 06:06 | Day surgery (SDC) | payer OTHER, SELFPAY ==
[2025-03-28 10:45] VITALS: BMI 25.1
--- NOTE | 2025-03-31 12:51 | HO.ANESPROP2 ---
Documented by User: Mariela Parnell NP 03/31/25 12:58 HPI - Anesthesia Eval Consult details Narrative: 59yo F for Upper Endoscopy and Colonoscopy Screening Hx breast CA PMFSH Active Problems Active Problems: All Active Problems HLD (hyperlipidemia) (Acute) Hammer toe of left foot (Acute) Bunion of great toe of right foot (Acute) Osteopenia (Acute) Well woman exam (Acute) Bilateral leg numbness (Acute) Ductal carcinoma in situ (DCIS) of right breast (Acute) Invasive ductal carcinoma of right breast (Chronic) Heart palpitations (Acute) Precordial chest pain (Acute) Abnormal stress test (Acute) Insomnia (Acute) Elevated liver enzymes (Acute) PVC (premature ventricular contraction) (Acute) Essential hypertension (Acute) Past Medical History Medical History (Updated 03/28/25 @ 10:41 by Gala Perez RN) Insomnia Elevated liver enzymes GERD (gastroesophageal reflux disease) PVC (premature ventricular contraction) Essential hypertension Family History Family History Father Prostate CA Heart disease Mother Pancreatic cancer Paternal Aunt Ovarian cancer Family history of problems with anesthesia: No Surgical History Surgical History (Updated 01/08/25 @ 12:25 by Karen Newman) History of colonoscopy (~12/03/14) H/O breast reconstruction (~03/08/23) History of lumpectomy of right breast (03/02/22) History of lumpectomy of right breast (02/02/22) History of sinus surgery History of bilateral breast implants History of bunionectomy History of Problems with Anesthesia: No Social History Social History Household Members: Spouse and Family Housing: House Do you presently have visiting nurse or other home services: No Alcohol intake: current Alcohol intake frequency: 0-2 drinks per day Patient Tobacco Use Status: Never used Tobacco service: No Current occupational status: employed Meds Allergies Allergy/AdvReac Type Severity Reaction Status Date / Time No Known Allergies Allergy Verified 03/11/25 08:24 Exam Height,Weight and Vital Signs: Height 5 ft 8 in Weight 74.843 kg Assessment and Plan Assessment Anesthesia Assessment: Chart Reviewed Final Anesthetic Review Family History of Problems with Anesthesia: No History of Problems with Anesthesia: No Documented by User: Tad Cheatham MD 04/01/25 10:35 PMFSH Past Medical History Medical History (Updated 03/28/25 @ 10:41 by Gala Perez, LE) Insomnia Elevated liver enzymes GERD (gastroesophageal reflux disease) PVC (premature ventricular contraction) Essential hypertension Family History Family History Father Prostate CA Heart disease Mother Pancreatic cancer Paternal Aunt Ovarian cancer Surgical History Surgical History (Updated 01/08/25 @ 12:25 by Karen Newman) History of colonoscopy (~12/03/14) H/O breast reconstruction (~03/08/23) History of lumpectomy of right breast (03/02/22) History of lumpectomy of right breast (02/02/22) History of sinus surgery History of bilateral breast implants History of bunionectomy Social History Social History Household Members: Spouse and Family Housing: House Do you presently have visiting nurse or other home services: No Alcohol intake: current Alcohol intake frequency: 0-2 drinks per day Patient Tobacco Use Status: Never used Tobacco service: No Current occupational status: employed Meds Allergies Allergy/AdvReac Type Severity Reaction Status Date / Time No Known Allergies Allergy Verified 03/11/25 08:24 Exam Airway Mallampati Class: II TM Dist: >3cm Neck ROM: Full Loose/Missing/Broken Teeth: No Assessment and Plan Assessment Anesthesia Assessment: Anesthesia Plan Discussed Final Anesthetic Review NPO: Yes ASA Class: II Final Preanesthetic Review: No Changes in Pt Med Stat, Meds/Allgs Chart Reviewed, Consent Obtained/Reviewed and Anes Risks/Benef Reviewed Patient Risk: Low Procedure Risk: Low Anesthetic Plan Anesthetic Plan: MAC: Disposition: Standard PACU
[2025-04-01 06:22] VITALS: BMI 24.8
[2025-04-01 06:33] VITALS: BP 131/87; PULSE 78; RESP 16; TEMP 36.4; O2SAT 99
[2025-04-01] MEDS: Lactated Ringers 1,000 ML 100 ML IVCONT (06:36)
--- NOTE | 2025-04-01 07:36 | P.HPSUR_ITS ---
Pre-Procedural Eval Section A - 24 Hr Update-Section A only Date of Service: 04/01/25 Section B - Complete if H&P > 30 days Chief Complaint: Encounter for screening for malignant neoplasm of Relevant Family History (Specify if Yes): No Relevant Social History: None Present Medications: see Short Stay Collaborative assessment Medical History: Significant History (Insomnia Elevated liver enzymes GERD (ga stroesophageal reflux disease) PVC (premature ventricular contraction) Essential hypertension) History of Previous Operations: Relevant previous surgery/procedure and date(s) (History of colonoscopy (~12/03/14) H/O breast reconstruction (~03/08/23) History of lumpectomy of right breast (03/02/22) History of lumpectomy of right breast (02/02/22) History of sinus surgery History of bilateral breast implants History of bunionectomy) Allergies: Allergies Allergy/AdvReac Type Severity Reaction Status Date / Time No Known Allergies Allergy Verified 03/11/25 08:24 Review of Systems Sugical H&P ROS: Negative: Constitution, Cardiovascular, Respiratory, Neurological, Psychiatric, Hem-Onc, Allergic/Immunologic, Gastrointestinal, Genitourinary, Musculoskeletal, Integumentary, Endocrine and Eyes/Ears/Nose/Throat Exam Surgical H&P Exam: Normal: HEENT, Normal: Heart, Normal: Lungs, Normal: Extremities, Normal: Abdomen, Normal: Skin and Normal: Neurological Plan Diagnosis/Plan: Unchanged I have reviewed the history and physical and performed a pertinent physical examination on my patient. No changes have occurred unless specified. Time Spent With Patient Time: Total time managing care of this patient today ____ minutes.
--- NOTE | 2025-04-01 08:10 | P.OPN-COLO_ITS ---
Colonoscopy Operative Note Operative Note Date of Service: 04/01/25 Narrative: Operative Information Procedure Description: EGD, Colonoscopy Indication: GERD, Screening Anesthesia: MAC FLEXIBLE TRANSORAL UPPER GASTROINTESTINAL ENDOSCOPY AND COLONOSCOPY PROCEDURE NOTE UPPER ENDOSCOPY Consent: Indications for the procedure and potential complications of bleeding, perforation, reaction to medications and missed diagnosis were discussed with the patient and informed consent was obtained. Instrument: Olympus GIF H 190 J mid size upper endoscope Monitoring: Vital signs and clinical assessment, continuous EKG monitoring, Pulse oximetry, Carbon Dioxide monitoring and blood pressure monitoring were done throughout the procedure. Procedure: The patient was placed in the left lateral decubitis position and pre-procedure medications were administered and a bite block was placed. The endoscope was inserted into the mouth and advanced under direct vision to the third part of duodenum. A careful inspection was made as the upper endoscope was withdrawn including a retroflexed examination of the proximal stomach; Findings and interventions are described below. Findings: Larynx:normal Esophagus: GE junction at 40 cm, diaphragm hiatus at 40 cm, possible short segment Barretts with few tongues of salmon pink tissue with mild esophagitis, bx taken from GEJ, distal and proximal esophagus Stomach: Mild erythema with few fundic gland polyps. Biopsies were obtained. Grade 2 flap valve on retroflexed examination of the cardia. Duodenum: Normal bulb and descending duodenum, bx taken Intervention: Biopsies as noted above, COLONOSCOPY Instrument: Olympus variable stiffness pediatric scope 190L Colonoscopy Monitoring: Vital signs and clinical assessment, continuous EKG monitoring, Pulse oximetry, Carbon Dioxide monitoring and blood pressure monitoring were done throughout the procedure. Colon withdrawal time was 10 minutes. Procedure: The patient was placed in the left lateral decubitis position and pre-procedure medications were administered. After a digital rectal examination of the ano-rectum, the video colonoscope was inserted into the rectum and advanced through the colon to the cecum/TI. The colonoscope was slowly withdrawn in a retrograde panoramic fashion and the colon mucosa was carefully examined including a retroflexed view of the rectum. Findings and interventions are described below. Procedure Difficulty:moderate- tortuous colon noted Findings: Terminal Ileum-normal Cecum:normal Ascending Colon: normal Transverse Colon -normal Descending Colon:normal Sigmoid Colon: mild diverticulosis Rectum: Retroflexion with small internal hemorrhoids, grade I Anorectum - normal Colon preparation: [place] Bowel Preparation Scale Right colon; 2 Transverse colon: 2 Left colon; 2 (0 = Unprepared colon segment with mucosa not seen due to solid stool that cannot be cleared. 1 = Portion of mucosa of the colon segment seen, but other areas of the colon segment not well seen due to staining, residual stool and/or opaque liquid. 2 = Minor amount of residual staining, small fragments of stool and/or opaque liquid, but mucosa of colon segment seen well. 3 = Entire mucosa of colon segment seen well with no residual staining, small fragments of stool or opaque liquid) Impression and Post Procedure Diagnosis: Endoscopy Findings: possible barretts fundic gland polyps Colonoscopy Findings: diverticulosis tortuous colon internal hemorrhoids Plan: Await Pathology results Repeat Colonoscopy in 10 years or earlier if clinically indicated High fiber diet leaflet avoid straining at stool, epsom salts and sitz bath, anusol supps or cream if Barretts pos then repeat EGD in 3-5 yrs Above findings were reviewed with the patient and relevant handouts were provided if indicated.
[2025-04-01 08:16] VITALS: BP 106/66; PULSE 74; RESP 18; TEMP 36.4; O2SAT 99
[2025-04-01 08:31] VITALS: BP 113/60; PULSE 74; RESP 18; TEMP 36.4; O2SAT 97
--- NOTE | 2025-04-01 08:44 | PC.NURSE ---
post op vital signs are documented in vital signs.
== END 2025-04-01 08:53 | disposition home or self-care (01) ==
PROVIDERS: PCP Physician Assistant; Visit Provider Internal Medicine Gastroenterology
PROC: (CPT 45378; principal; 2025-04-01 07:30)
DX: Z12.11 Encounter for screening for malignant neoplasm of colon (principal); K56.2 Volvulus; K57.30 Diverticulosis of large intestine without perforation or abscess without bleeding; K64.0 First degree hemorrhoids; K21.9 Gastro-esophageal reflux disease without esophagitis; K31.7 Polyp of stomach and duodenum; K22.10 Ulcer of esophagus without bleeding; K20.80 Other esophagitis without bleeding; I10 Essential (primary) hypertension; E78.5 Hyperlipidemia, unspecified; Z85.3 Personal history of malignant neoplasm of breast; Z79.899 Other long term (current) drug therapy
CPT/HCPCS: 45378; 43239; 88305; 88313; 88342; J2003; J2704

== ENCOUNTER → 2025-04-01 06:06 | Outpatient (BNV) | payer OTHER, SELFPAY | PROVIDERS: PCP Physician Assistant; Visit Provider Internal Medicine Gastroenterology | DX: Z12.11 Encounter for screening for malignant neoplasm of colon (principal); K56.2 Volvulus; K57.30 Diverticulosis of large intestine without perforation or abscess without bleeding; K64.0 First degree hemorrhoids; K21.00 Gastro-esophageal reflux disease with esophagitis, without bleeding; K31.7 Polyp of stomach and duodenum | CPT/HCPCS: 43239; 45378 ==

== ENCOUNTER 2025-04-11 07:31 | Outpatient (REF) | payer OTHER, SELFPAY ==
--- OUTSIDE RECORDS SUMMARY | 2025-04-11 07:34 | XMS_ITS | Clinical Summary ---
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 Active olmesartan (BENICAR) 20 mg tablet Take 20 mg by mouth daily. Active VITAMIN D3 25 mcg (1,000 unit) chewable tablet 1 tablet daily. 03/04/2022 Active omeprazole (PRILOSEC) 20 MG tablet Take 20 mg by mouth daily. Active Active Problems Problem Noted Date Diagnosed Date Malignant neoplasm of upper- outer quadrant of right breast in female, estrogen receptor positive 03/24/2022 Status post right breast lumpectomy 03/24/2022 Breast neoplasm, Tis (DCIS), right 03/24/2022 Family history of prostate cancer in father 03/2022 Family history of ovarian cancer 03/24/2022 Family History Medical History Relation Comments Cancer Father Prostate cancer Father Cancer Mother Relation Status Comments Father Alive Mother Social History Tobacco Use Types Packs/Day Years Used Date Smoking Tobacco: Never Smokeless Tobacco: Never Alcohol Use Standard Drinks/Week Comments Yes 0 (1 standard drink = 0.6 oz pur e alcohol) Education Answer Date Recorded Are you interested in more education? Not on edis e 01/13/2023 Are you concerned about learning? Not on file 01/13/2023 No 01/13/2023 No 01/13/2023 Digital Access Answer Date Recorded No 02/11/2023 No 02/11/2023 No 02/11/2023 Reliable internet access at home? Not on file 02/11/2023 Device with a working camera? Not on file Comments No Sex and Gender Information Value Date Recorded Sex Assigned at Female 05/26/2020 12:47 PM EDT Legal Sex Female 9:43 PM EDT Gender Identity Female 05/26/2020 12:47 PM EDT Sexual Orientation Not on file Last Filed Vital Signs Vital Sign Reading Time Taken Comments Blood Pressure 108/80 03/24/2022 9:26 AM EDT Pulse 74 03/24/2022 9:26 AM EDT Temperature 36.2 C (97.2 F) 03/24/2022 9:26 AM EDT Respiratory Rate 18 05/26/2020 3:18 PM EDT Oxygen Saturation 99% 03/24/2022 9:26 AM EDT Inhaled Oxygen Concentration - - Weight 78 kg (172 lb) 03/30/2022 11:37 AM EDT Height 172.1 cm (5' 7.75 ) 03/30/2022 11:37 AM E DT Body Mass Index 26.35 03/30/2022 11:37 AM EDT Plan of Treatment Health Maintenance Due Date Last Done Comments DEPRESSION SCREENING 1975 HEPATITIS C SCREENING 1981 HIV ONE-TIME SCREENING (18-65 YEARS) 1981 PNEUMOCOCCAL VACCINES (50+ years) (1 of 2 - PCV) 1982 ZOSTER VACCINES (1 of 2) 1982 COLOGUARD 2008 COLONOSCOPY 2008 COLORECTAL CANCER SCREENING 2008 FIT TEST 2008 FOBT 2008 SIGMOIDOSCOPY 2008 VIRTUAL COLONOSCOPY 2008 CREATININE LEVEL 05/26/2021 05/26/2020 POTASSIUM LEVEL 05/26/2021 05/26/2020 PAP SMEAR 08/26/2022 08/26/2019 MAMMOGRAM 03/28/2024 03/28/2022, 01/16, 01/18/2022, Additional history exists COVID-19 VACCINE ( - season) 2024 12/22/2020 LIPID PANEL 03/05/2025 03/05/2020 Adult Td,Tdap Booster 12/01/2025 12/02/2015, 004 RSV VACCINE (1 - 1-dose 75+ series) 2038 SMOKING STATUS SCREENING (Once After 26 Yrs) Completed 03/30/2022 HEPATITIS A VACCINES Aged Out No long er eligible based on patient's age to complete this topic HIB VACCINES Aged Out No longer eligi ble based on patient's age to complete this topic MENINGOCOCCAL VACCINES (ACWY) Aged Out No longer eligible based on patient's age to complete this topic MENINGOCOCCAL VACCINES (B) Aged Out N o longer eligible based on patient's age to complete this topic Medical Devices Not on file Procedures Procedure Name Priority Date/Time Associated Diagnosis Comments BI MRI BREAST WITH AND WITHOUT CONTRAST (BILATERAL) Urgent/patient waiting 03/28/2022 4:19 PM EDT Breast cancer BASIC METABOLIC PANEL STAT 05/26/2020 1:25 PM EDT PAP TEST Routine 08/26/2019 12:00 AM EST from Last 3 Months or Most Recently Relevant to Health Maintenance Results * BI MRI BREAST WITH AND WITHOUT CONTRAST (BILATERAL) (03/28/2022 4:19 PM EDT) Anatomical Region Laterality Modality Breast Left, Breast Right, Breast Bilateral Bila teral Magnetic Resonance 03/28/2022 4:31 PM EDT Impressions 03/28/2022 5:16 PM EDT 1. Postsurgical changes in the right breast. There is a 5 mm nodular area of enhancement abutting the superior medial margin of the post-surgical hematoma in the upper outer right breast which could represent residual DCIS. There is a separate 4 mm focus of type III enhancement 1.7 cm anterior to the inferior medial margin of the hematoma near midline in the upper aspect of the right breast. This is somewhat suspicious for a focus of malignancy. No other findings suspicious for malignancy in the right breast. 2. No findings suspicious for malignancy in the left breast. BI-RADS CATEGORY 6 - KNOWN BIOPSY PROVEN MALIGNANCY Narrative 03/28/2022 5:16 PM EDT HISTORY: Status post right lumpectomy and reexcision for invasive malignancy and extensive DCIS in the upper outer right breast. 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 COMPARISON: Outside studies: mammograms 01/13/2022, 01/18/2022, right breast ultrasound 01/13/2022, mammograms from right wire localization and surgical excision 02/02/2022. TECHNIQUE: Exam performed on a 1.5 Emily high field MRI scanner. High resolution axial STIR, T1, T1 with fat saturation mass and multiphase post gadolinium sequences, and late phase sagittal T1-weighted images of both breasts were obtained. Exam is reviewed with [employer] CAD workstation with subtraction, 3-D MIP, and multiplanar reformatted images. FINDINGS: Right breast: Minimal background breast parenchymal enhancement. 4.5 cm x 2.2 cm collection in the posterior upper outer aspect of the breast consistent with post-surgical hematoma. This is largely T1 hyperintense and intermediate signal on the STIR sequence consistent with hematoma. Edema within the adjacent parenchyma and axilla. Mild edematous skin thickening. A thin rim of enhancement around the majority of the the hematoma with a more focal 5 mm nodular area of enhancement abutting the superior medial margin of the hematoma immediately lateral to the nipple. Enhancement is somewhat heterogeneous but there is a component of type III enhancement. There is a separate well-circumscribed 4 mm focus of enhancement 1.7 cm anterior to the inferior medial margin of the hematoma at midline in the mid upper aspect of the breast. No suspicious lymph nodes. A subpectoral breast implant appears grossly intact. Left breast: Minimal background breast parenchymal enhancement. No suspicious masses or suspicious areas of non-mass enhancement. No suspicious lymph nodes. A subpectoral breast implant appears grossly intact. Procedure Note Angel Casey MD - 03/28/2022 HISTORY: Status post right lumpectomy and reexcision for invasivemalignancy and extensive DCIS in the upper outer right breast. Portalvein, margins positive for DCIS on reexcision. COMPARISON: Outside studies: mammograms 01/13/2022, 01/18/2022, right breastultrasound 01/13/2022, mammograms from right wire localization and surgicalexcision 02/02/2022. TECHNIQUE: Exam performed on a 1.5 Emily high field MRI scanner. Highresolution axial STIR, T1, T1 with fat saturation mass and multiphase postgadolinium sequences, and late phase sagittal T1-weighted images of bothbreasts were obtained. Exam is reviewed with [employer] CAD workstation withsubtraction, 3-D MIP, and multiplanar reformatted images. FINDINGS: Right breast: Minimal background breast parenchymal enhancement. 4.5 cm x2.2 cm collection in the posterior upper outer aspect of the breastconsistent with post-surgical hematoma. This is largely T1 hyperintenseand intermediate signal on the STIR sequence consistent with hematoma.Edema within the adjacent parenchyma and axilla. Mild edematous skinthickening. A thin rim of enhancement around the majority of the thehematoma with a more focal 5 mm nodular area of enhancement abutting thesuperior medial margin of the hematoma immediately lateral to the nipple.Enhancement is somewhat heterogeneous but there is a component of type IIIenhancement. There is a separate well-circumscribed 4 mm focus ofenhancement 1.7 cm anterior to the inferior medial margin of the hematomaat midline in the mid upper aspect of the breast. No suspicious lymphnodes. A subpectoral breast implant appears grossly intact. Left breast: Minimal background breast parenchymal enhancement. Nosuspicious masses or suspicious areas of non-mass enhancement. Nosuspicious lymph nodes. A subpectoral breast implant appears grosslyintact. IMPRESSION: 1. Postsurgical changes in the right breast. There is a 5 mm nodular areaof enhancement abutting the superior medial margin of the post-surgicalhematoma in the upper outer right breast which could represent residualDCIS. There is a separate 4 mm focus of type III enhancement 1.7 cmanterior to the inferior medial margin of the hematoma near midline in theupper aspect of the right breast. This is somewhat suspicious for a focusof malignancy. No other findings suspicious for malignancy in the rightbreast. 2. No findings suspicious for malignancy in the left breast. BI-RADS CATEGORY 6 - KNOWN BIOPSY PROVEN MALIGNANCY us Florence Lucero MD IM MR BREAST Final Resu lt * (ABNORMAL) Basic metabolic panel (05/26/2020 1:25 PM EDT) SODIUM 141 133 - 146 mmol/L [facility] CHLORIDE 100 96 - 108 mmol/L [facility] POTASSIUM 3.8 3.3 - 5.1 mmol/L [facility] CO2 28 21 - 35 mmol/L [facility] BUN 13 6 - 19 mg/dL [facility] CREATININE 0.70 0.5 - 1.5 mg/dL [facility] GLUCOSE 105(H) 70 - 99 mg/dL [facility] CALCIUM 10.1 8.4 - 10.3 mg/dL [facility] EGFR 97 >59 mL/min/1.7 3m2 [facility] Comment:Estimated glomerular filtration rate calculated using the CKD-EPI equation. ANION GAP 17 10 - 20 mmol/L [facility] Blood 05/26/2020 1:25 PM EDT 05/26/2020 1:39 PM EDT Loren Fisher PA-C LAB BLOOD ORDERABLES Fi nal Result Performing Organization Address City/State/[facility] Co de Phone Number [address] [address] * Pap Smear (08/26/2019 12:00 AM EST) 08/26/2019 08/27/2019 8:3 3 AM EST Narrative SEE NARRATIVE - 09/04/2019 3:02 [place] [address] FLOOR PERSON Cytology Report Patient Name: NEFTALI PACHECO : 1965 (Age: 53) Sex: F Institution: [facility] Location: [facility] Date of Collection: 08/26/2019 Date of Reported: 09/04/2019 15:02 Results to: Chris Pickens MD, BS FINAL DIAGNOSIS A. CERVICAL, LIQUID BASED SPECIMEN: SPECIMEN ADEQUACY: Satisfactory for evaluation. INTERPRETATION: NEGATIVE FOR INTRAEPITHELIAL LESION OR MALIGNANCY. ADDITIONAL INFORMATION: This specimen was prescreened using the [employer] System. Electronically Signed Out By: RICHIE Merritt(ASCP)MB Cervical cytology is a screening test primarily for squamous cancers and precursors and has associated false-negative and false-positive results. New technologies such as liquid-based preparations may decrease but will not eliminate all false-negative results. Regular sampling and follow-up of unexplained clinical signs and symptoms are recommended to minimize false negative results. PROCEDURES/ADDENDA HPV Testing (Requested) Ordered Date: 08/27/2019 A. CERVICAL, LIQUID BASED SPECIMEN: Human Papilloma Virus Test Negative for high-risk human papillomavirus types 16, 18, 45 and the Other high risk probe set (Includes 31, 33, 35, 39, 51, 52, 56, 58, 59, 66, 68) by [employer] HR-HPV analysis. Clinical correlation is advised. This HPV test was performed at [facility], [address] [place] [address]. This test has been FDA approved for SurePath cervical cytology specimens. The accuracy and precision of this test for all other specimen sources has been verified in the Cytopathology Laboratory of the [facility] and has not been cleared or approved by the U.S. Food and Drug Administration. Clinical correlation is advised. 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 It is not the complete legal health record.[facility]
[2025-04-11 09:59] LABS: Alanine Aminotransferase 56 U/L (0-31); Albumin Level 4.9 g/dL (3.5-5.0); Alkaline Phosphatase 71 U/L (39-117); Aspartate Amino Transferase 49 U/L (5-31); Total Protein 7.4 g/dL (6.5-8.0)
[2025-04-11 10:25] LABS: HBS Num1 0.00 mIU/mL (0-7.99); HBc Num1 0.08 S/CO (0.00-0.79); HBsAGNum1 0.41 S/CO (0.00-0.99); Hepatitis A Antibody IgM 0.16 Index (0-0.79); Hepatitis B Surface Antigen Negative (Negative); ~HepC Num1 0.14 S/CO (0.00-0.79); ~Hepatitis A Antibody IgM Nonreactive (Nonreactive); ~Hepatitis B Surface Antibody NONREACTIVE (Nonreactive); ~Hepatitis C Antibody Nonreactive (Nonreactive)
[2025-04-12 18:28] LABS: A. Phagocytphilium DNA,RT-PCR NOT DETECTED (NOT DETECTED); Babesia Microti DNA, RT-PCR NOT DETECTED (NOT DETECTED); Borrelia Miyamotoi,DNA RT-PCR NOT DETECTED (NOT DETECTED); E.Chaffeensis DNA RT-PCR NOT DETECTED (NOT DETECTED); Lyme(Borrelia ssp)DNA RT-PCR NOT DETECTED (NOT DETECTED)
[2025-04-17 22:14] LABS: Anti Nuclear Antibody Pattern Nuclear, Speckled; Anti Nuclear Antibody Screen POSITIVE (NEGATIVE); Anti Nuclear Antibody Titer 1:40 titer
== END 2025-04-11 07:32 | disposition home or self-care (01) ==
LOC: HO.10HDL 07:31
PROVIDERS: Visit Provider Physician Assistant
DX: Z11.59 Encounter for screening for other viral diseases (principal); Z01.84 Encounter for antibody response examination; R74.8 Abnormal levels of other serum enzymes
CPT/HCPCS: 36415; 80076; 86038; 86039; 86431; 86704; 86706; 86709; 86803; 87340; 87468; 87469; 87478; 87484; 87798

== ENCOUNTER 2025-04-11 07:54 | Outpatient (REF) | payer OTHER, SELFPAY ==
--- NOTE | ~2025-04-11 | US_ITS ---
CLINICAL HISTORY: R74.8 - Abnormal levels of other serum enzymes --- Additional Notes or Special Instructions: Elevated liver enzymes US abdomen limited with color Doppler Comparison: None Findings: Visualized pancreas is normal. Tail obscured by bowel gas. Liver is normal in size heterogeneous in echotexture. Right lobe length 13.3 cm. No focal hepatic masses. Common duct 4.2 mm diameter. Gallbladder is physiologically distended. No gallstones, sludge or wall abnormalities. No gallbladder wall thickening. No pericholecystic fluid. No sonographic Yancey sign. Main portal vein antegrade. Right kidney measures, 11.4 cm in length. Normal cortical width and echotexture. No hydronephrosis calculus or mass. Impression: 1. Normal-sized liver with coarse hepatic echotexture reflecting hepatic steatosis or diffuse hepatocellular disease. No focal hepatic lesions. This document has been electronically signed by: Alex Jensen MD on 04/11/2025 14:43:58
== END 2025-04-11 07:55 | disposition home or self-care (01) ==
LOC: HO.HMGCX 07:54
PROVIDERS: PCP Physician Assistant; Visit Provider Physician Assistant
DX: R74.8 Abnormal levels of other serum enzymes (principal)
CPT/HCPCS: 76705

== ENCOUNTER → 2025-04-11 08:10 | Outpatient (BNV) | payer OTHER, SELFPAY | PROVIDERS: PCP Physician Assistant; Visit Provider Radiology Diagnostic Radiology | DX: R74.8 Abnormal levels of other serum enzymes (principal) | CPT/HCPCS: 76705 ==

== ENCOUNTER 2025-05-06 07:44 | Outpatient (AMB) | payer OTHER, SELFPAY ==
--- OUTSIDE RECORDS SUMMARY | 2025-05-06 07:47 | XMS_ITS | Clinical Summary ---
Author Organization [facility] Address [address] [place] [phone] Phone Care Team Providers Care Reimbursement Representative Name Role Phone Jalen Toscano MD Primary [...] breasts were obtained. Exam is reviewed with [employer] CAD workstation with subtraction, 3-D MIP, and [...] bothbreasts were obtained. Exam is reviewed with [employer] CAD workstation withsubtraction, 3-D MIP, and multiplanar [...] EDT) SODIUM 141 133 - 146 mmol/L [facility] CHLORIDE 100 96 - 108 mmol/L [facility] POTASSIUM 3.8 3.3 - 5.1 mmol/L [facility] CO2 28 21 - 35 mmol/L [facility] BUN 13 6 - 19 mg/dL [facility] CREATININE 0.70 0.5 - 1.5 mg/dL [facility] GLUCOSE 105(H) 70 - 99 mg/dL [facility] CALCIUM 10.1 8.4 - 10.3 mg/dL [facility] EGFR 97 >59 mL/min/1.7 3m2 [facility] Comment:Estimated glomerular filtration rate calculated using the CKD-EPI equation. ANION GAP 17 10 - 20 mmol/L [facility] Blood 05/26/2020 1:25 PM EDT 05/26/2020 1:39 PM EDT Loren Fisher PA-C LAB BLOOD ORDERABLES Fi nal Result Performing Organization Address City/State/[facility] Co de Phone Number [address] [address] * Pap Smear (08/26/2019 12:00 AM EST) 08/26/2019 08/27/2019 8:3 3 AM EST Narrative SEE NARRATIVE - 09/04/2019 3:02 [place] [address] [employer] Cytology Report Patient Name: NEFTALI PACHECO : 1965 (Age: 53) Sex: F Institution: [facility] Location: [facility] Date of Collection: 08/26/2019 Date of Reported: 09/04/2019 15:02 Results to: Chris Pickens MD, BS FINAL DIAGNOSIS A. CERVICAL, LIQUID BASED SPECIMEN: SPECIMEN ADEQUACY: Satisfactory for evaluation. INTERPRETATION: NEGATIVE FOR INTRAEPITHELIAL LESION OR MALIGNANCY. ADDITIONAL INFORMATION: This specimen was prescreened using the [employer] System. Electronically Signed Out By: RICHIE [...] 52, 56, 58, 59, 66, 68) by [employer] HR-HPV analysis. Clinical correlation is advised. This HPV test was performed at [facility], [address] [place] [address]. This test has been FDA approved for SurePath cervical cytology specimens. The accuracy and precision of this test for all other specimen sources has been verified in the Cytopathology Laboratory of the [facility] and has not been cleared or approved by the U.S. Food and Drug Administration. Clinical correlation is advised. CLINICAL HISTORY Date of Last Menstrual Period: Menstrual History: Unknown Other Clinical Conditions: Screening Pap SPECIMEN SOURCE A: CERVICAL, LIQUID BASED SPECIMEN Chris Pickens MD CYTOLOGY ORDERABLES Final R esult SEE NARRATIVE from Last 3 Months or Most Recently Relevant to Health Maintenance [facility] O [facility] HMO [employer] H[employer] Care Teams Reimbursement Representative Relationship Specialty Start Date End Date Jalen Toscano MD [address] [place] [address] [facility] [address] [place] [address] PCP - General Internal Medicine 05/26/20 Additional Source Comments The information contained in this document represents components of the legal health record. It is not the complete legal health record.[facility]
--- NOTE | 2025-05-06 07:48 | A.OFFPC_ITS ---
Vital Signs 05/06/25 07:52 Height 5 ft Weight 76.204 kg BMI 32.8 BP 130/98 H Respiration 16 Pulse 79 Pulse Source Pulse Oximeter Temp 97.9 F Temp Source Temporal Artery Scan Pulse Oximetry (%) 99 Oxygen Delivery Method Room Air Intake Visit Reasons: F/U Liver U/S - see comments Potato Seed Cutter Required: No Accompanied by: Self / Same As Patient Allergies No Known Allergies Allergy (Verified 05/06/25 07:48) HPI HPI Comments History of Present Illness Details 59 year old female with history htn, hld , invasive ductal carcinoma R breast presents to the office today for follow-up. Falling last visit, she had significantly elevated liver enzymes of unclear etiology. She was sent for ultrasound of the liver which showed fatty liver. Repeat liver enzymes were improved. Question related to zolpidem, less likely atorvastatin, but also low possibility of anastrozole. She also underwent endoscopy and colonoscopy which showed some erosive esophagitis and chronic inflammation of the stomach. Colonoscopy without any significant abnormality did show diverticulosis. She has been managing the esophagitis with omeprazole 40 mg twice daily. She has been taking zolpidem 6.25 mg at night but states this is not helping her sleep. She states the 5 mg of zolpidem was more effective. She has not tried any medication in tandem with this. She states that she will take half a tab at bedtime and then half a tab when she wakes up in the middle of the night which was effective. She states that she has been getting more exercise working in the garden and has started walking 5 miles daily. She does have plans to join a gym. She is also been monitoring her diet voiding triggers for the chronic gastritis and esophagitis. ROS: General: No fevers, malaise, unintentional weight loss HEENT: No blurred vision, diplopia. No sore throat, nasal congestion, rhinorrhea, sinus pain, ear pain Cardiovascular: No chest pain, palpitations, or leg edema Respiratory: No shortness of breath, wheezing, cough GI: No abdominal pain, nausea, vomiting, diarrhea, constipation, melena, hematochezia : No dysuria, hematuria, increased urinary frequency, decreased urinary output MSK: No myalgia, back pain Neuro: No headaches, weakness, paresthesias Skin: No rashes or lesions EXAM: Constitutional - Awake and Alert, No apparent distress Eyes - PERRL Respiratory - Normal lung expansion, Normal respiratory effort, No respiratory distres Extremities - no calf tenderness bilaterally, no swelling Skin - Warm/Dry Neurological - Alert & oriented x3 Psychological - Appropriate affect [facility] Medical History (Updated 03/28/25 @ 10:41 by Gala Perez RN) Insomnia Elevated liver enzymes GERD (gastroesophageal reflux disease) PVC (premature ventricular contraction) Essential hypertension Surgical History (Updated 01/08/25 @ 12:25 by Karen Newman) History of colonoscopy (~12/03/14) H/O breast reconstruction (~03/08/23) History of lumpectomy of right breast (03/02/22) History of lumpectomy of right breast (02/02/22) History of sinus surgery History of bilateral breast implants History of bunionectomy Family History Father Prostate CA Heart disease Mother Pancreatic cancer Paternal Aunt Ovarian cancer Social History Household Members: Spouse and Family Housing: House Do you presently have visiting nurse or other home services: No Alcohol intake: current Alcohol intake frequency: 0-2 drinks per day Patient Tobacco Use Status: Never used Tobacco service: No Current occupational status: employed Female Reproductive History Menstrual Age of Menarche: 11 Questionnaire Thrive Questionnaire Date Thrive assessed: 03/11/25 JEANNE-7 AMB Questionnaire JEANNE-7 Date JEANNE - 7 assessed: 03/11/25 Source: Developed by Drs. Guanaco Mireles, Yasmin Fernandes, Aniket Ortiz and colleagues, with an educational unruly from [employer]. Physical exam (Primary Care) Vital Signs: Last Vital Signs Temp 97.9 F 05/06/25 07:52 Pulse 79 05/06/25 07:52 Resp 16 05/06/25 07:52 BP 130/98 H 05/06/25 07:52 Pulse Ox 99 05/06/25 07:52 Oxygen Delivery Method Room Air 05/06/25 07:52 BMI result Body Mass Index 32.8 Tobacco/Smoking Status: Tobacco use Status Patient Tobacco Use Status Never used Tobacco 05/06/25 07:51 Thrive Assessment: Date of Thrive Assessment Date Thrive assessed 03/11/25 05/06/25 07:51 Coding Level of Care Code Est Pt Level 4 (45380) Complex EM visit Add On G2211 Diagnoses Essential hypertension I10 HLD (hyperlipidemia) E78.5 Osteopenia M85.80 Elevated liver enzymes R74.8 Insomnia G47.00 Assessment & Plan Assessment & Plan (1) Essential hypertension: Code(s): I10 - Essential (primary) hypertension Category: Medical Plan: Continue current therapies (2) HLD (hyperlipidemia): Code(s): E78.5 - Hyperlipidemia, unspecified Category: Medical Plan: stable. continue lipitor, (3) Osteopenia: Code(s): M85.80 - Other specified disorders of bone density and structure, unspecified site Category: Medical Plan: Continue with onc and continue therapies (4) Elevated liver enzymes: Code(s): R74.8 - Abnormal levels of other serum enzymes Category: Medical Plan: improving (5) Insomnia: Code(s): G47.00 - Insomnia, unspecified Category: Medical Plan: Change back to neri [facility] Plan Follow up in 6 months Medications: Discontinued zolpidem ER Discontinued Reason: Doctor's Order 6.25 mg PO BEDTIME PRN 30 tabs 0RF sleep
[2025-05-06 07:52] VITALS: BP 130/98; PULSE 79; RESP 16; TEMP 36.6; O2SAT 99; BMI 32.8
== END 2025-05-06 08:13 | disposition home or self-care (01) ==
LOC: HO.HMCHD 07:45
PROVIDERS: PCP Physician Assistant; Visit Provider Physician Assistant
DX: I10 Essential (primary) hypertension (principal); E78.5 Hyperlipidemia, unspecified; M85.80 Other specified disorders of bone density and structure, unspecified site; R74.8 Abnormal levels of other serum enzymes; G47.00 Insomnia, unspecified

== ENCOUNTER 2025-05-14 13:46 | Emergency (ER) | payer OTHER, SELFPAY ==
--- NOTE | ~2025-05-14 | CT_ITS ---
CLINICAL HISTORY: HTNsive CT head without contrast. COMPARISON: None provided. FINDINGS: The visualized paranasal sinuses are clear. The mastoid air cells are clear. No calvarial fracture. No evidence for mass or mass effect. No intracranial hemorrhage or abnormal extra-axial fluid collection. Basal ganglia mineralization present bilaterally. No evidence of hydrocephalus. The basilar cisterns are patent. There are periventricular areas of low attenuation compatible with mild white matter small vessel disease. Posterior fossa appears unremarkable. IMPRESSION: 1. No acute intracranial findings. This document has been electronically signed by: Reinaldo Kirkland MD on 05/14/2025 18:05:28
--- NOTE | ~2025-05-14 | CT_ITS ---
CLINICAL HISTORY: neck pain trauma CT cervical spine without contrast. COMPARISON: None provided. FINDINGS: Straightening of the normal cervical lordosis, likely positional. Vertebral body heights are maintained. Skull base and intracranial structures appear normal. The visualized paravertebral soft tissues appear unremarkable. C2-C3: Uncovertebral joint hypertrophy. C3-C4: Facet joint arthrosis. [id number] right neural foraminal narrowing. C4-C5: Anterior marginal osteophytes. Uncovertebral joint hypertrophy. Mild right neural foraminal narrowing. C5-C6: Anterior marginal osteophytes. Uncovertebral joint hypertrophy. Moderate bilateral neural foraminal narrowing. C6-C7: Anterior marginal osteophytes. Uncovertebral joint hypertrophy. Moderate bilateral neural foraminal narrowing. IMPRESSION: 1. No evidence of acute injury to the cervical spine. This document has been electronically signed by: Reinaldo Kirkland MD on 05/14/2025 18:15:55
[2025-05-14 13:58] VITALS: BP 201/91; PULSE 93; RESP 18; TEMP 36.6; O2SAT 99; BMI 26.2
--- NOTE | 2025-05-14 13:59 | ED_ITS ---
HPI - General Adult General Chief complaint: General Medical Stated complaint: Dangerously High Blood Pressure Dizzy Time Seen by Provider: 05/14/25 15:58 Source: patient Mode of arrival: ambulatory Limitations: no limitations History of Present Illness ED Provider: Dr. Gu HPI narrative: 59-year-old female presented hospital today for elevated blood pressure, neck tenderness, tingling in the feet, difficulty urinating, and puffiness in her face that we will carry out. Patient is also complaining of lightheadedness. She denies any vertiginous symptoms. Denies any worsening of this lightheadedness when she turns her neck left and right. Patient states she did not hit his neck pain when she fell. It occurred shortly after getting a massage yesterday. Patient stated that when she fell she fell off the 2nd step off her deck. She landed on her right arm. She did not pass out. Denies any chest pain or abdominal pain denies pain in her lower extremities. Patient stated the pain in her right forearm is improving. She does have bruising of the right forearm. Patient is concerned about her elevated blood pressure therefore she presents to the ER for further evaluation. Patient is currently urinating without any issues. She still has some tingling in her feet bilaterally. Related Data Previous Rx's ?Medication ?Instructions ?Recorded cholecalciferol (vitamin D3) 25 25 mcg PO DAILY #90 ta bs 11/25/24 mcg (1,000 unit) chewable tablet (Vitamin D3) anastrozole 1 mg tablet (Arimidex) 1 mg PO DAILY #90 t abs 01/10/25 atorvastatin 20 mg tablet 20 mg PO BEDTIME #90 tabs hydrochlorothiazide 25 mg tablet 25 mg PO DAILY #90 ta bs 02/03/25 olmesartan 40 mg tablet 40 mg PO DAILY #90 tabs 01/16 06/12 omeprazole 40 mg capsule,delayed 40 mg PO BID #180 cap s 02/03/25 release zolpidem 5 mg tablet 2.5 - 5 mg (0.5 - 1 x 5 mg) PO 05/07/25 BEDTIME PRN sleep #30 tabs amlodipine 5 mg tablet 5 mg PO DAILY 21 days #21 ta bs 05/14/25 Allergies Allergy/AdvReac Type Severity Reaction Status Date / Time No Known Allergies Allergy Verified 05/14/25 14:02 Review of Systems 2 Review of Systems: Pertinent review of systems as mentioned in [facility]. All other system otherwise negative. [facility] Past Medical History [facility] Narrative: Medical history as mentioned in HPI Medical History (Updated 05/14/25 @ 19:06 by Mily Gu DO) Insomnia Elevated liver enzymes GERD (gastroesophageal reflux disease) PVC (premature ventricular contraction) Essential hypertension Surgical History (Updated 01/08/25 @ 12:25 by Karen Newman) History of colonoscopy (~12/03/14) H/O breast reconstruction (~03/08/23) History of lumpectomy of right breast (03/02/22) History of lumpectomy of right breast (02/02/22) History of sinus surgery History of bilateral breast implants History of bunionectomy Family History Family History Father Prostate CA Heart disease Mother Pancreatic cancer Paternal Aunt Ovarian cancer Social History Social History Household Members: Spouse and Family Housing: House Do you presently have visiting nurse or other home services: No Alcohol intake: current Alcohol intake frequency: 0-2 drinks per day Patient Tobacco Use Status: Never used Tobacco Advance Directives: No Advance Directives Information Provided: Yes Do you have a plan to hurt others: No Plan service: No Current occupational status: employed Physical Exam ED Exam Exam: General: Pleasant, no distress, interacting appropriately Head: Normacephalic, atraumatic ENT: oral mucosa moist, neck supple, no tracheal deviation, paraspinal cervical spine tenderness Cardiovascular: regular rate, regular rhythm, no murmurs, rubbing, gallops Respiratory: CTAB, no wheeze, rales, rhonchi Gastrointestinal: Soft, non distended, non tender, non guarding Extremities: Ecchymosis on the right forearm appreciate on exam. Full range of motion in her right hand, vascularly intact. And may be full range of motion on patient's right elbow. Neurological: Awake and alert, no facial droop noted Skin: Warm and dry Psychiatric: Appropriate mood and thoughts Vital Signs: Vital Signs - 24 hr 05/14/25 13:58 05/14/25 17:00 05/14/25 17:29 Temperature 97.9 F Pulse Rate 93 77 75 Respiratory Rate 18 16 12 Blood Pressure 201/91 H 188/104 H 183/114 H Pulse Oximetry 99 98 Oxygen Delivery Method Room Air Room Air 05/14/25 18:41 05/14/25 18:48 Temperature 98.6 F Pulse Rate 77 Respiratory Rate 15 Blood Pressure 179/93 H 179/93 H Pulse Oximetry 97 Oxygen Delivery Method Room Air BMI result Body Mass Index 26.2 Course Course Course Narrative: This is an RME: Additional HPI, ROS, PE not included below will be deferred to primary provider. RME assessment and note performed by: Angela Urena PA-C This is a [id number]-female, with a hx of HTN, HLD, cancer survivor breast cancer with double mastectomy, who presents to the ER with complaints of headache and elevated BP. Reporting decreased urinary output. Patient reports that she got a massage yesterday and got home with a headache, noticed tingling into her feet, woke up in the middle of the night with swelling to her face, and has been feeling intermittently dizzy. She took all of her medications last night. She is hypertensive at 201/91. Plan: Labs, EKG, CT head Medications Administered Discontinued Medications Generic Name Dose Route Start Last Admin Trade Name Freq PRN Reason Stop Dose Admin Acetaminophen 975 mg 05/14/25 16:13 05/14/25 18:20 Acetaminophen 325 Mg Tablet PO 05/14/25 16:14 975 mg ONCE ONE Administration Amlodipine Besylate 5 mg 05/14/25 17:18 05/14/25 17:30 Amlodipine Besylate 5 Mg Tablet PO 05/14/25 17:19 5 mg ONCE ONE Administration Protocol Hydrochlorothiazide 25 mg 05/14/25 18:19 05/14/25 18:48 Hydrochlorothiazide 25 Mg Tablet PO 05/14/25 18:20 25 mg ONCE ONE Administration Protocol Magnesium Sulfate 2 gm in 50 mls @ 50 mls/hr 05/14/25 16:04 05/14/25 17:11 Magnesium Sulfate/H2o IV 05/14/25 17:03 50 mls/hr ONCE ONE Administration Sodium Chloride 500 mls @ 500 mls/hr 05/14/25 16:15 05/14/25 18:18 Ns IV 05/14/25 17:14 Infused .Q1H [facility] Infusion Medical Decision Making Medical Decision Making MDM Narrative: This is a 59-year-old female presented hospital today for evaluation of elevated blood pressure. Patient's blood pressure here is 201 systolic. We will repeat a blood pressure to see where she is at at this time. Lab work was significant for a slight anemia at 11.5. Patient also has finding of hypomagnesemia at 1.5. We will plan to replete patient's magnesium level with [address] head has been ordered by provider that seen her before me. I will add a CT C-spine given neck pain in setting of trauma. Low suspicion for vertebral artery dissection given the mechanism of injury and presentation. Patient appears to be well. Does not appear to be in acute distress at this time. A dose of p.o. Tylenol will be provided to the patient as well. EKG shows normal sinus rhythm no sign of STEMI. Patient's CT head and CT C-spine is negative. Patient did feel better after IV magnesium. Blood pressure is down to 177 after amlodipine and hydrochlorothiazide. I think this is a appropriate decrease in blood pressure from to 201 systolic to 177. Discussed with patient for follow up with primary care doctor for further blood pressure management. Patient agrees and understands this plan. All questions were addressed. Paresthesia has improved after IV magnesium. Differential Diagnosis Differential Diagnoses: The differential diagnosis associated with the presentation includes C-spine fracture, intracranial bleed, subdural hematoma, hypertension, hypomagnesemia Lab Data [facility] Lab Attestation statement: I reviewed the patient's lab results. 05/14/25 14:32 05/14/25 14:32 Labs: Lab Results 05/14/25 Range/Units 14:32 WBC 8.2 (4.8-10.8) X10*3/uL RBC 3.84 L (4.20-5.50) X10*6/uL Hgb 11.5 L (12.0-16.0) g/dl Hct 34.5 L (37.0-47.0) % MCV 89.8 (80.0-98.0) fL MCH 29.9 (27.0-33.0) pg MCHC 33.3 (31.0-35.0) g/dl RDW 13.9 (11.0-16.0) % Plt Count 239 (160-400) X10*3/uL MPV 10.5 (9.4-12.3) fL Immature Gran % (Auto) 0.6 H (0.0-0.4) % Neut % (Auto) 64.8 (45-73) % Lymph % (Auto) 25.3 (20-40) % [place] % (Auto) 7.1 (2-11) % Eos % (Auto) 1.6 (0-4) % Baso % (Auto) 0.6 (0-2) % Lymph # (Auto) 2.1 (1.2-4.9) X10*3/uL [place] # (Auto) 0.6 (0.1-1.2) X10*3/uL Eos # (Auto) 0.1 (0.0-0.4) X10*3/uL Baso # (Auto) 0.1 (0.0-0.2) X10*3/uL Abs Immat Gran (auto) 0.05 H (0.00-0.03) X10*3/uL Absolute Neuts (auto) 5.3 (2.0-8.3) x10*3/uL Absolute Nucleated RBC 0.000 (0.0-0.012) X10*3/uL Nucleated RBC % (auto) 0.0 (0.0-0.2) /100WBC Sodium 142 (135-145) mmol/L Potassium 3.5 (3.3-5.1) mmol/L Chloride 105 (96-108) mmol/L Carbon Dioxide 28 (22-29) mmol/L Anion Gap 13 (12-20) BUN 13 (9-16) mg/dL Creatinine 0.79 (0.5-1.4) mg/dL Estim Creat Clear Calc 82.2 Estimated GFR > 60 Random Glucose 93 (60-115) mg/dL Calcium 9.2 (8.4-10.2) mg/dL Magnesium 1.5 L (1.6-2.6) mg/dL Total Bilirubin 0.6 (0.0-1.0) mg/dL Direct Bilirubin 0.2 (0.0-0.5) mg/dL AST 65 H (5-31) U/L ALT 73 H (0-31) U/L Alkaline Phosphatase 84 (39-117) U/L Troponin I High Sens 3.9 (<3.5-17.0) ng/L Total Protein 7.4 (6.5-8.0) g/dL Albumin 4.9 (3.5-5.0) g/dL Independent Interpretation I performed an independent interpretation of an: EKG Radiology Impression Discussion of test interpretation with radiology: I have reviewed the radiologist's reading. Discharge Plan Discharge Clinical Impression: Hypertension Qualifiers: Hypertension type: unspecified Qualified Code(s): I10 - Essential (primary) hypertension Patient Disposition: Home, Self-Care Instructions: Hypertension (ED) Additional Instructions: Please follow up with your primary care doctor for further BP control. Return to ED if you have intense headaches, difficulty urine, chest pain or shortness of breath. You may keep a journal and take your blood pressure before going to bed. This may provide data points for your primary care doctor Prescriptions: New amlodipine 5 mg tablet 5 mg PO DAILY 21 Days Qty: 21 0RF No Action zolpidem 5 mg tablet 2.5 - 5 mg PO BEDTIME PRN (Reason: sleep) Qty: 30 0RF cholecalciferol (vitamin D3) [Vitamin D3] 25 mcg (1,000 unit) Tablet,Chewable 25 mcg PO DAILY Qty: 90 3RF anastrozole [Arimidex] 1 mg Tablet 1 mg PO DAILY Qty: 90 3RF atorvastatin 20 mg tablet 20 mg PO BEDTIME Qty: 90 1RF hydrochlorothiazide 25 mg tablet 25 mg PO DAILY Qty: 90 1RF olmesartan 40 mg tablet 40 mg PO DAILY Qty: 90 1RF omeprazole 40 mg capsule,delayed release(DR/EC) 40 mg PO BID Qty: 180 1RF Print Language: Persian
--- NOTE | 2025-05-14 14:04 | ECG_ITS ---
Test Reason : HTNSIVE Blood Pressure : */* mmHG Vent. Rate : 83 BPM Atrial Rate : 83 BPM P-R Int : 134 ms QRS Dur : 76 ms QT Int : 382 ms P-R-T Axes : 28 7 21 degrees QTcB Int : 448 ms Artifact in tracing Normal sinus rhythm Nonspecific ST abnormality Borderline ECG No previous ECGs available Referred By: Angela Urena Electronically Signed By: NICOLE RUBIO
[2025-05-14 14:38] LABS: MANUAL DIFF FLAG NO
[2025-05-14 14:49] LABS: Hematocrit 34.5 % (37.0-47.0); Hemoglobin 11.5 g/dl (12.0-16.0); Imm Gran Abs Auto 0.05 X10*3/uL (0.00-0.03); Imm Gran Pct Auto 0.6 % (0.0-0.4); Lymphocytes Absolute Auto 2.1 X10*3/uL (1.2-4.9); Mean Corpuscular HGB Conc 33.3 g/dl (31.0-35.0); Mean Corpuscular Hemoglobin 29.9 pg (27.0-33.0); Mean Corpuscular Volume 89.8 fL (80.0-98.0); NRBC Abs Auto 0.000 X10*3/uL (0.0-0.012); NRBC Pct Auto 0.0 /100WBC (0.0-0.2); Platelet Count 239 X10*3/uL (160-400); Red Blood Count 3.84 X10*6/uL (4.20-5.50); White Blood Count 8.2 X10*3/uL (4.8-10.8)
[2025-05-14 14:55] LABS: Alanine Aminotransferase 73 U/L (0-31); Albumin Level 4.9 g/dL (3.5-5.0); Alkaline Phosphatase 84 U/L (39-117); Anion Gap 13 (12-20); Aspartate Amino Transferase 65 U/L (5-31); Blood Urea Nitrogen 13 mg/dL (9-16); Calcium 9.2 mg/dL (8.4-10.2); Carbon Dioxide 28 mmol/L (22-29); Chloride 105 mmol/L (96-108); Creatinine Clr Calc Pharmacy 82.2; Estimated Glomerular Filt Rate > 60; Magnesium 1.5 mg/dL (1.6-2.6); Potassium 3.5 mmol/L (3.3-5.1); Sodium 142 mmol/L (135-145); Total Protein 7.4 g/dL (6.5-8.0)
[2025-05-14 15:02] LABS: Troponin-I High Sensitivity 3.9 ng/L (<3.5-17.0)
--- OUTSIDE RECORDS SUMMARY | 2025-05-14 16:45 | XMS_ITS | Encounter Summary ---
Author Organization [facility] Address [address] [place] [phone] Phone Care Team Providers Care Accounts Payable Payroll Coordinator Name Role Phone Jalen Toscano MD Primary Care Provider Encounter Details Date Type Department Care Team (Late st Contact Info) Description 03/24/2022 Procedure Pass [facility], [address] [address] Social History Tobacco Use Types Packs/Day Years Used Date Smoking Tobacco: Never Smokeless Tobacco: Never Comments No Sex and Gender Information Value Date Recorded Sex Assigned at Female 05/26/2020 12:47 PM EDT Legal Sex Female 9:43 PM EDT Gender Identity Female 05/26/2020 12:47 PM EDT Sexual Orientation Not on file documented as of this encounter Last Filed Vital Signs Vital Sign Reading Time Taken Comments Blood Pressure - - Pulse - - Temperature - - Respiratory Rate - - Oxygen Saturation - - Inhaled Oxygen Concentration - - Weight 74.8 kg (165 lb) 03/26/2022 1:58 PM EDT Height 172.7 cm (5' 8 ) 03/26/2022 1:58 PM EDT Body Mass Index 25.09 03/26/2022 1:58 PM EDT documented in this encounter Plan of Treatment Not on file documented as of this encounter Visit Diagnoses Not on filedocumented in this encounter Care Teams Accounts Payable Payroll Coordinator Relationship Specialty Start Date End Date Jalen Toscano MD [address] [place] [address] [place] [address] PCP - General Internal Medicine 05/26/20 documented as of this encounter Additional Source Comments The information contained in this document represents components of the legal health record. It is not the complete legal health record.[facility]
--- OUTSIDE RECORDS SUMMARY | 2025-05-14 16:45 | XMS_ITS | Clinical Summary ---
Author Organization [facility] Address [address] [place] [id number] Phone Care Team Providers Care Management Scientist Name Role Phone Jalen Toscano MD Primary [...] breasts were obtained. Exam is reviewed with [employer] CAD workstation with subtraction, 3-D MIP, and [...] bothbreasts were obtained. Exam is reviewed with [employer] CAD workstation withsubtraction, 3-D MIP, and multiplanar [...] EDT) SODIUM 141 133 - 146 mmol/L [facility] CHLORIDE 100 96 - 108 mmol/L [facility] POTASSIUM 3.8 3.3 - 5.1 mmol/L [facility] CO2 28 21 - 35 mmol/L [facility] BUN 13 6 - 19 mg/dL [facility] CREATININE 0.70 0.5 - 1.5 mg/dL [facility] GLUCOSE 105(H) 70 - 99 mg/dL [facility] CALCIUM 10.1 8.4 - 10.3 mg/dL [facility] EGFR 97 >59 mL/min/1.7 3m2 [facility] Comment:Estimated glomerular filtration rate calculated using the CKD-EPI equation. ANION GAP 17 10 - 20 mmol/L [facility] Blood 05/26/2020 1:25 PM EDT 05/26/2020 1:39 PM EDT Loren Fisher PA-C LAB BLOOD ORDERABLES Fi nal Result Performing Organization Address City/State/[facility] Co de Phone Number [address] [address] * Pap Smear (08/26/2019 12:00 AM EST) 08/26/2019 08/27/2019 8:3 3 AM EST Narrative SEE NARRATIVE - 09/04/2019 3:02 [place] [address] CALL CENTER RN Cytology Report Patient Name: NEFTALI PACHECO : 1965 (Age: 53) Sex: F Institution: [facility] Location: [facility] Date of Collection: 08/26/2019 Date of Reported: 09/04/2019 15:02 Results to: Chris Pickens MD, BS FINAL DIAGNOSIS A. CERVICAL, LIQUID BASED SPECIMEN: SPECIMEN ADEQUACY: Satisfactory for evaluation. INTERPRETATION: NEGATIVE FOR INTRAEPITHELIAL LESION OR MALIGNANCY. ADDITIONAL INFORMATION: This specimen was prescreened using the [employer] System. Electronically Signed Out By: RICHIE [...] 52, 56, 58, 59, 66, 68) by [employer] HR-HPV analysis. Clinical correlation is advised. This HPV test was performed at [facility], [address] [place] [address]. This test has been FDA approved for [employer] cervical cytology specimens. The accuracy and precision of this test for all other specimen sources has been verified in the Cytopathology Laboratory of the [facility] and has not been cleared [...] Recently Relevant to Health Maintenance [facility] H[facility] [employer]ISE [employer] Care Teams Management Scientist Relationship Specialty Start Date End Date Jalen Toscano MD [address] [place] [address] [address] [place] [address] PCP - General Internal Medicine 05/26/20 Additional Source Comments The information contained in this document represents components of the legal health record. It is not the complete legal health record.[facility]
[2025-05-14 17:00] VITALS: BP 188/104; PULSE 77; RESP 16; O2SAT 98
[2025-05-14] MEDS: Magnesium Sulfate/H2O 2 GM/50 ML PIGGYBACK IV (17:11)
[2025-05-14 17:29] VITALS: BP 183/114; PULSE 75; RESP 12
[2025-05-14 18:41] VITALS: BP 179/93; PULSE 77; RESP 15; TEMP 37; O2SAT 97
[2025-05-14 18:48] VITALS: BP 179/93
--- NOTE | 2025-05-14 19:15 | PC.NURSE ---
patient received 2gram's of magnesium sulfate prior to d/c.
[2025-05-14 19:35] VITALS: BP 179/93; PULSE 77; RESP 15; TEMP 37; O2SAT 97
== END 2025-05-14 19:37 | disposition home or self-care (01) ==
PROVIDERS: Physician Assistant Medical; Emergency Provider Student in an Organized Health Care Education/Training Program; PCP Physician Assistant
DX: I10 Essential (primary) hypertension (principal); M54.2 Cervicalgia; R20.2 Paresthesia of skin; R39.198 Other difficulties with micturition
CPT/HCPCS: 36415; 70450; 72125; 80048; 80076; 83735; 84484; 85025; 93005; 96361; 96374; 99284; J3475

== ENCOUNTER → 2025-05-14 14:04 | Outpatient (BNV) | payer OTHER, SELFPAY | PROVIDERS: Emergency Provider Student in an Organized Health Care Education/Training Program; PCP Physician Assistant; Visit Provider Radiology Diagnostic Radiology | DX: M47.813 Spondylosis without myelopathy or radiculopathy, cervicothoracic region (principal); R42 Dizziness and giddiness | CPT/HCPCS: 70450; 72125 ==

== ENCOUNTER → 2025-05-14 14:04 | Outpatient (BNV) | payer OTHER, SELFPAY | PROVIDERS: Emergency Provider Student in an Organized Health Care Education/Training Program; PCP Physician Assistant; Visit Provider Internal Medicine | DX: I10 Essential (primary) hypertension (principal) | CPT/HCPCS: 93010 ==

== ENCOUNTER 2025-05-20 11:26 | Outpatient (AMB) | payer OTHER, SELFPAY ==
--- NOTE | 2025-05-20 11:33 | A.OFFPC_ITS ---
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 Accompanied by: Self / Same As Patient Allergies No Known Allergies Allergy (Verified 05/20/25 11:33) Medication List - Last Reconciled 05/20/25 by SHELBIE Kenny amlodipine 5 mg PO DAILY 21 days anastrozole (Arimidex) 1 mg PO DAILY atorvastatin 20 mg PO BEDTIME cholecalciferol (vitamin D3) (Vitamin D3) 25 mcg PO DAILY hydrochlorothiazide 25 mg PO DAILY olmesartan 40 mg PO DAILY omeprazole 40 mg PO BID zolpidem 2.5 - 5 mg (0.5 - 1 x 5 mg) PO BEDTIME PRN HPI HPI Comments History of Present Illness Details 59 year old female with history htn, hld , invasive ductal carcinoma R breast presents to the office today for post presents to the office today for post ER evaluation. She reports she had a mechanical fall down several steps about 2 weeks ago. No head strike or loss of consciousness. She was experiencing soreness in the right upper extremity and neck. She also has some swelling on the medial aspect of the right forearm. She does have full range of motion. She then went for a deep tissue massage to help with the neck discomfort. The next day, she reports that she was swollen throughout her body including her face, no difficulty breathing. No orthopnea, dyspnea on exertion, palpitations, chest pains. She then noticed that she was feeling disoriented and when checking her blood pressure at home it was 210/105, this was about 1 week ago. She presented to the ER for evaluation of her symptoms. She was also reporting a severe headache on the top of her head but no associated vision changes or chest pain. She reports she has been compliant with her olmesartan 40 mg and hydrochlorothiazide 25 mg daily. While in the ED, labs were significant for a mild normocytic anemia with H/H11.5/34.5%. Renal function electrolyte levels were normal with the exception of magnesium of 1.5. AST was 65, ALT 73. Troponin 3.9. EKG showed NSR, rate [address]-T abnormality without evidence of acute ischemia. Head CT negative for any acute intracranial abnormality. There was some periventricular areas of low attenuation compatible with mild white matter small-vessel disease. CT of the cervical spine negative for any osseous abnormality. In the ED, was given 2 g IV magnesium which did help the paresthesias in her feet and she has been taking 250 mg of magnesium at home. She was also given 5 mg of amlodipine and 25 mg of hydrochlorothiazide with improvement in blood pressure to 179/83. She tells me since then, she has been using her olmesartan and hydrochlorothiazide but has not taken the amlodipine in 2 days. Blood pressure on recheck in the office today is 120/78. Hypertension-as above Hyperlipidemia-on atorvastatin, last LDL 122 Elevated LFTs-chronic, but improved from last labs. Abdominal U/S 03/2025 suggestive of hepatic steatosis or diffuse hepatocellular disease Insomnia-improved with zolpidem GERD-reports she is no longer taking omeprazole as she has stopped triggers ROS: see hpi EXAM: Constitutional - Awake and Alert, No apparent distress Eyes - PERRL Cardiovascular - S1S2, RRR, No edema Respiratory - Normal lung expansion, Normal respiratory effort, No respiratory distress, CTA bilaterally Extremities - no calf tenderness bilaterally, no swelling Skin - Warm/Dry Neurological - Alert & oriented x3 Psychological - Appropriate affect [facility] Medical History (Updated 05/20/25 @ 12:01 by SHELBIE Kenny) Insomnia Elevated liver enzymes GERD (gastroesophageal reflux disease) PVC (premature ventricular contraction) Essential hypertension Surgical History (Updated 05/15/25 @ 17:07 by Karen Newman) History of colonoscopy (~04/01/25) H/O breast reconstruction (~03/08/23) History of lumpectomy of right breast (03/02/22) History of lumpectomy of right breast (02/02/22) History of sinus surgery History of bilateral breast implants History of bunionectomy Family History Father Prostate CA Heart disease Mother Pancreatic cancer Paternal Aunt Ovarian cancer Social History Household Members: Spouse and Family Housing: House Do you presently have visiting nurse or other home services: No Alcohol intake: current Alcohol intake frequency: 0-2 drinks per day Patient Tobacco Use Status: Never used Tobacco service: No Current occupational status: employed Female Reproductive History Menstrual Age of Menarche: 11 Questionnaire Thrive Questionnaire Date Thrive assessed: 03/11/25 JEANNE-7 AMB Questionnaire JEANNE-7 Date JEANNE - 7 assessed: 03/11/25 Source: Developed by Drs. Guanaco Mireles, Yasmin Fernandes, Aniket Ortiz and colleagues, with an educational unruly from [employer]. Physical exam (Primary Care) Vital Signs: Last Vital Signs Temp 97.8 F 05/20/25 11:40 Pulse 89 05/20/25 11:40 Resp 14 05/20/25 11:40 BP 138/92 H 05/20/25 11:40 Pulse Ox 97 05/20/25 11:40 Oxygen Delivery Method Room Air 05/20/25 11:40 BMI result Body Mass Index 24.9 Tobacco/Smoking Status: Tobacco use Status Patient Tobacco Use Status Never used Tobacco 05/20/25 11:35 Thrive Assessment: Date of Thrive Assessment Date Thrive assessed 03/11/25 05/20/25 11:35 Coding Level of Care Code Est Pt Level 4 (96930) Complex EM visit Add On G2211 Diagnoses Essential hypertension I10 Hypomagnesemia E83.42 Elevated liver enzymes R74.8 Insomnia G47.00 HLD (hyperlipidemia) E78.5 Assessment & Plan Assessment & Plan (1) Essential hypertension: Code(s): I10 - Essential (primary) hypertension Category: Medical Plan: 120/70 on recheck. Discontinue amlodipine as she has not been taking this anyway. Continue hydrochlorothiazide 25 mg daily and olmesartan 40 mg daily. Significantly elevated blood pressures, possibly related to vagus nerve stimulation during deep tissue massage. Advised against deep tissue massages. Can monitor blood pressures at home (2) Hypomagnesemia: Code(s): E83.42 - Hypomagnesemia Category: Medical Plan: Repeat Mag level (3) Elevated liver enzymes: Code(s): R74.8 - Abnormal levels of other serum enzymes Category: Medical Plan: Reviewed ultrasound from 03/2025. Likely related to hepatic steatosis. We will continue monitoring (4) Insomnia: Code(s): G47.00 - Insomnia, unspecified Category: Medical Plan: Continue zolpidem (5) HLD (hyperlipidemia): Code(s): E78.5 - Hyperlipidemia, unspecified Category: Medical Plan: Check lipid panel. Continue atorvastatin Plan Follow-up in the office in 3 months as scheduled with labs completed prior to visit Orders: Orders Basic Metabolic Panel Today E78.5 - Hyperlipidemia, unspecified, E83.42 - Hypomagnesemia, I10 - Essential (primary) hypertension, R74.8 - Abnormal levels of other serum enzymes Magnesium Today E78.5 - Hyperlipidemia, unspecified, E83.42 - Hypomagnesemia, I10 - Essential (primary) hypertension, R74.8 - Abnormal levels of other serum enzymes Complete Blood Count Auto Diff 3 Months E78.5 - Hyperlipidemia, unspecified, I10 - Essential (primary) hypertension Liver Panel Today R74.8 - Abnormal levels of other serum enzymes Vitamin B12 and Folate Today R20.2 - Paresthesia of skin Basic Metabolic Panel 3 Months E78.5 - Hyperlipidemia, unspecified, I10 - Essential (primary) hypertension Lipid Panel 3 Months E78.5 - Hyperlipidemia, unspecified, I10 - Essential (primary) hypertension Liver Panel 3 Months E78.5 - Hyperlipidemia, unspecified, I10 - Essential (primary) hypertension Medications: Discontinued amlodipine Discontinued Reason: Doctor's Order 5 mg PO DAILY 21 days 21 tabs 0RF
[2025-05-20 11:40] VITALS: BP 138/92; PULSE 89; RESP 14; TEMP 36.6; O2SAT 97; BMI 24.9
[2025-05-20 12:06] VITALS: BP 120/78
--- OUTSIDE RECORDS SUMMARY | 2025-05-20 13:08 | XMS_ITS | Encounter Summary ---
Author Organization [facility] Address [address] [place] [address] Phone Care Team Providers Care Shuttle Spotter Name Role Phone Jalen Toscano MD Primary Care Provider Encounter Details Date Type Department Care Team (Late st Contact Info) Description 03/24/2022 Procedure Pass [facility], [address] [address] Social History Tobacco Use Types Packs/Day Years [...] on filedocumented in this encounter Care Teams Shuttle Spotter Relationship Specialty Start Date End Date Jalen Toscano MD [address] [place] [address] [place] [address] PCP - General Internal Medicine 05/26/20 documented as of this encounter Additional Source Comments The information contained in this document represents components of the legal health record. It is not the complete legal health record.[facility]
--- OUTSIDE RECORDS SUMMARY | 2025-05-20 13:08 | XMS_ITS | Clinical Summary ---
Author Organization [facility] Address [address] [place] [phone] Phone Care Team Providers Care Metallurgy Teacher Name Role Phone Jalen Toscano MD Primary [...] 03/28/2024 03/28/2022, 01/16, 01/18/2022, Additional history exists LIPID PANEL 03/05/2025 03/05/2020 INFLUENZA VACCINE (#1) 2025 9, 07/07/2017, 05/20/2016, Additional history exists COVID-19 VACCINE (2 - season) 2025 12/22/2020 Adult Td,Tdap Booster 12/01/2025 12/02/2015, 004 RSV [...] breasts were obtained. Exam is reviewed with [employer] CAD workstation with subtraction, 3-D MIP, and [...] bothbreasts were obtained. Exam is reviewed with [employer] CAD workstation withsubtraction, 3-D MIP, and multiplanar [...] BIOPSY PROVEN MALIGNANCY us Florence Lucero MD IMG MR BREAST Final Resu lt * (ABNORMAL) Basic metabolic panel (05/26/2020 1:25 PM EDT) SODIUM 141 133 - 146 mmol/L [facility] CHLORIDE 100 96 - 108 mmol/L [facility] POTASSIUM 3.8 3.3 - 5.1 mmol/L [facility] CO2 28 21 - 35 mmol/L [facility] BUN 13 6 - 19 mg/dL [facility] CREATININE 0.70 0.5 - 1.5 mg/dL [facility] GLUCOSE 105(H) 70 - 99 mg/dL [facility] CALCIUM 10.1 8.4 - 10.3 mg/dL [facility] EGFR 97 >59 mL/min/1.7 3m2 [facility] Comment:Estimated glomerular filtration rate calculated using the CKD-EPI equation. ANION GAP 17 10 - 20 mmol/L [facility] Blood 05/26/2020 1:25 PM EDT 05/26/2020 1:39 PM EDT Loren Fisher PA-C LAB BLOOD ORDERABLES Fi nal Result [address] [address] * Pap Smear (08/26/2019 12:00 AM EST) 08/26/2019 08/27/2019 8:3 3 AM EST Narrative SEE NARRATIVE - 09/04/2019 3:02 [place] [address] INPATIENT SERVICES DIRECTOR Cytology Report Patient Name: NEFTALI PACHECO : 1965 (Age: 53) Sex: F Institution: [facility] Location: [facility] Date of Collection: 08/26/2019 Date of Reported: 09/04/2019 15:02 Results to: Chris Pickens MD, BS FINAL DIAGNOSIS A. CERVICAL, LIQUID BASED SPECIMEN: SPECIMEN ADEQUACY: Satisfactory for evaluation. INTERPRETATION: NEGATIVE FOR INTRAEPITHELIAL LESION OR MALIGNANCY. ADDITIONAL INFORMATION: This specimen was prescreened using the [employer] Imaging System. Electronically Signed Out By: RICHIE Merritt(ASCP)LAMONTE Cervical cytology is a screening test primarily [...] 52, 56, 58, 59, 66, 68) by [employer] Onclarity HR-HPV analysis. Clinical correlation is advised. This HPV test was performed at [facility], [address] [place] [address]. This test has been FDA approved for SurePath cervical cytology specimens. The accuracy and precision of this test for all other specimen sources has been verified in the Cytopathology Laboratory of the [facility] and has not been cleared or approved by the U.S. Food and Drug Administration. Clinical correlation is advised. CLINICAL HISTORY Date of Last Menstrual Period: Menstrual History: Unknown Other Clinical Conditions: Screening Pap SPECIMEN SOURCE A: CERVICAL, LIQUID BASED SPECIMEN Chris Pickens MD CYTOLOGY ORDERABLES Final R esult SEE NARRATIVE from Last 3 Months or Most Recently Relevant to Health Maintenance Insurance [facility] O O [facility]MO [facility] Address: [address] [address] Care Teams Metallurgy Teacher Relationship Specialty Start Date End Date Jalen Toscano MD [address] [place] [address] PCP - General Internal Medicine 05/26/20 Additional Source Comments The information contained in this document represents components of the legal health record. It is not the complete legal health record.[facility]
== END 2025-05-20 13:27 | disposition home or self-care (01) ==
LOC: HO.HMCHD 11:27
PROVIDERS: PCP Physician Assistant; Visit Provider Physician Assistant
DX: I10 Essential (primary) hypertension (principal); E83.42 Hypomagnesemia; R74.8 Abnormal levels of other serum enzymes; G47.00 Insomnia, unspecified; E78.5 Hyperlipidemia, unspecified

== ENCOUNTER 2025-05-23 08:05 | Outpatient (REF) | payer OTHER, SELFPAY ==
[2025-05-23 11:40] LABS: Folate 7.3 ng/mL (> or = 4.0); Vitamin B12 383 pg/mL (200-900)
[2025-05-23 11:41] LABS: Alanine Aminotransferase 48 U/L (0-31); Albumin Level 5.0 g/dL (3.5-5.0); Alkaline Phosphatase 72 U/L (39-117); Anion Gap 17 (12-20); Aspartate Amino Transferase 42 U/L (5-31); Blood Urea Nitrogen 20 mg/dL (9-16); Calcium 10.5 mg/dL (8.4-10.2); Carbon Dioxide 25 mmol/L (22-29); Chloride 102 mmol/L (96-108); Estimated Glomerular Filt Rate > 60; Magnesium 1.9 mg/dL (1.6-2.6); Potassium 4.3 mmol/L (3.3-5.1); Sodium 140 mmol/L (135-145); Total Protein 7.7 g/dL (6.5-8.0)
== END 2025-05-23 08:06 | disposition home or self-care (01) ==
LOC: HO.10HDL 08:05
PROVIDERS: Visit Provider Physician Assistant
DX: I10 Essential (primary) hypertension (principal); E78.5 Hyperlipidemia, unspecified; R74.8 Abnormal levels of other serum enzymes; E83.42 Hypomagnesemia; R20.2 Paresthesia of skin
CPT/HCPCS: 36415; 80048; 80076; 82607; 82746; 83735

== ENCOUNTER 2025-06-19 07:27 | Outpatient (AMB) | payer OTHER, SELFPAY ==
[2025-06-19 07:29] VITALS: BP 122/80; BMI 26.2
--- NOTE | 2025-06-19 07:29 | A.OFFVIS_ITS ---
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 No complaints. Last Pap/HPV was negative in 04/08 Last Mammogram showed invasive ductal carcinoma grade 3 in 02/04 the patient is under the care of oncology , the patient had bilateral mastectomy Last Colonoscopy was in 04/11 [facility] Medical History Insomnia Elevated liver enzymes GERD (gastroesophageal reflux disease) PVC (premature ventricular contraction) Essential hypertension Surgical History History of colonoscopy (~04/01/25) H/O breast reconstruction (~03/08/23) History of lumpectomy of right breast (03/02/22) History of lumpectomy of right breast (02/02/22) History of sinus surgery History of bilateral breast implants History of bunionectomy Family History Father Prostate CA Heart disease Mother Pancreatic cancer Paternal Aunt Ovarian cancer Social History Household Members: Spouse and Family Housing: House Do you presently have visiting nurse or other home services: No Alcohol intake: current Alcohol intake frequency: 0-2 drinks per day Patient Tobacco Use Status: Never used Tobacco service: No Current occupational status: employed and retired Sexually active: Yes Sexual orientation: Straight/Heterosexual Gender identity: Female Female Reproductive History Menstrual Age of Menarche: 11 Date of last pap smear: 04/06/22 Review of Systems Const All systems reviewed & are unremarkable except as noted in HPI and below Card Reports as per HPI Resp Reports as per HPI GI Reports as per HPI and Reports no additional complaints Reports as per HPI Physical Exam Vital Signs: Last Vital Signs BP 122/80 06/19/25 07:29 BMI result Body Mass Index 26.2 Const General: cooperative, healthy appearing and comfortable Chest Breast/axilla palpation: other (Status post Bilateral mastectomy) Resp Effort & Inspection: normal respiratory effort Auscultation: clear to auscultation bilaterally Percussion: percussion normal Cardio Palpation: normal PMI Rate: regular rate Rhythm: regular rhythm Heart sounds: no murmurs and no rubs Peripheral pulses: Peripheral pulses 2+ throughout GI Inspection: Yes normal to inspection Palpation (GI): Soft to palpation, nontender, no guarding, not rigid and No hepatosplenomegaly present Percussion: Yes normal to percussion Auscultation: normal bowel sounds Rectal Exam - Female: deferred General: Yes bladder normal to palpation External Female Exam: No lesion Speculum Exam - Vagina: normal appearance of the vagina, normal palpation, normal vaginal discharge and not erythematous Speculum Exam - Cervix: normal appearance of the cervix and normal palpation Bimanual exam- vagina & uterus: normal bimanual exam, normal palpation, uterine size normal, bladder normal to palpation, consistency normal and normal palpation Bimanual Exam- Adnexa, other: normal adnexae, no masses and no tenderness Assessment & Plan Assessment & Plan (1) Well woman exam: Code(s): Z01.419 - Encounter for gynecological examination (general) (routine) without abnormal findings Category: Medical Plan: Co testing not indicated this year. Counseled the patient about the recommended dietary allowance of 1200 mg of Calcium & 600 IU of vitamin D. The patient was instructed to schedule annual exam in a year. All questions answered and the patient verbalized understanding. Coding Level of Care Code Est Pt Prev Care 40-64y(34933) Diagnoses Well woman exam Z01.419
--- OUTSIDE RECORDS SUMMARY | 2025-06-19 07:30 | XMS_ITS | Encounter Summary ---
Author Organization [facility] Address [address] [place] [address] Phone Care Team Providers Care Pants Presser Automatic Name Role Phone Jalen Toscano MD Primary Care Provider Encounter Details Date Type Department Care Team (Late st Contact Info) Description 03/24/2022 Procedure Pass [facility], [address] [address] Social History Tobacco Use Types Packs/Day Years [...] on filedocumented in this encounter Care Teams Pants Presser Automatic Relationship Specialty Start Date End Date Jalen Toscano MD [address] [place] [address] [place] [address] PCP - General Internal Medicine 05/26/20 documented as of this encounter Additional Source Comments The information contained in this document represents components of the legal health record. It is not the complete legal health record.[facility]
--- OUTSIDE RECORDS SUMMARY | 2025-06-19 07:30 | XMS_ITS | Clinical Summary ---
Author Organization [facility] Address [address] [place] [address] Phone Care Team Providers Care Graphic Design Intern Name Role Phone Jalen Toscano MD Primary [...] breasts were obtained. Exam is reviewed with [employer] CAD workstation with subtraction, 3-D MIP, and [...] bothbreasts were obtained. Exam is reviewed with [employer] CAD workstation withsubtraction, 3-D MIP, and multiplanar [...] EDT) SODIUM 141 133 - 146 mmol/L [facility] CHLORIDE 100 96 - 108 mmol/L [facility] POTASSIUM 3.8 3.3 - 5.1 mmol/L [facility] CO2 28 21 - 35 mmol/L [facility] BUN 13 6 - 19 mg/dL [facility] CREATININE 0.70 0.5 - 1.5 mg/dL [facility] GLUCOSE 105(H) 70 - 99 mg/dL [facility] CALCIUM 10.1 8.4 - 10.3 mg/dL [facility] EGFR 97 >59 mL/min/1.7 3m2 [facility] Comment:Estimated glomerular filtration rate calculated using the CKD-EPI equation. ANION GAP 17 10 - 20 mmol/L [facility] Blood 05/26/2020 1:25 PM EDT 05/26/2020 1:39 PM EDT Loren Fisher PA-C LAB BLOOD ORDERABLES Fi nal Result [address] [address] * Pap Smear (08/26/2019 12:00 AM EST) 08/26/2019 08/27/2019 8:3 3 AM EST Narrative SEE NARRATIVE - 09/04/2019 3:02 [place] [address] DIRECTOR OF INSTRUCTIONAL TECHNOLOGY Cytology Report Patient Name: NEFTALI PACHECO : 1965 (Age: 53) Sex: F Institution: [facility] Location: [facility] Date of Collection: 08/26/2019 Date of Reported: 09/04/2019 15:02 Results to: Chris Pickens MD, BS FINAL DIAGNOSIS A. CERVICAL, LIQUID BASED SPECIMEN: SPECIMEN ADEQUACY: Satisfactory for evaluation. INTERPRETATION: NEGATIVE FOR INTRAEPITHELIAL LESION OR MALIGNANCY. ADDITIONAL INFORMATION: This specimen was prescreened using the [employer] Imaging System. Electronically Signed Out By: RICHIE [...] 52, 56, 58, 59, 66, 68) by [employer] Onclarity HR-HPV analysis. Clinical correlation is advised. This HPV test was performed at [facility], [address] [place] [address]. This test has been FDA approved for SurePath cervical cytology specimens. The accuracy and precision of this test for all other specimen sources has been verified in the Cytopathology Laboratory of the [facility] and has not been cleared or approved by the U.S. Food and Drug Administration. Clinical correlation is advised. CLINICAL HISTORY Date of Last Menstrual Period: Menstrual History: Unknown Other Clinical Conditions: Screening Pap SPECIMEN SOURCE A: CERVICAL, LIQUID BASED SPECIMEN Chris Pickens MD CYTOLOGY ORDERABLES Final R esult SEE NARRATIVE from Last 3 Months or Most Recently Relevant to Health Maintenance Insurance [facility] HMO [facility] O O O O [facility] HMO Care Teams Graphic Design Intern Relationship Specialty Start Date End Date Jalen Toscano MD [address] [place] [id number] PCP - General Internal Medicine 05/26/20 Additional Source Comments The information contained in this document represents components of the legal health record. It is not the complete legal health record.[facility]
== END 2025-06-19 07:49 | disposition home or self-care (01) ==
LOC: HO.HWS 07:27
PROVIDERS: PCP Physician Assistant; Visit Provider Obstetrics & Gynecology
DX: Z01.419 Encounter for gynecological examination (general) (routine) without abnormal findings (principal)
CPT/HCPCS: 99396; 99459

== ENCOUNTER 2025-07-09 12:40 | Outpatient (REF) | payer OTHER, SELFPAY ==
[2025-07-09 14:30] LABS: Free T4 (Free Thyroxine) 0.94 ng/dL (0.71-1.85); Thyroid Stimulating Hormone 1.33 uIU/mL (0.32-4.0)
--- OUTSIDE RECORDS SUMMARY | 2025-07-09 17:33 | XMS_ITS | Clinical Summary ---
Author Organization [facility] Address [address] [place] [phone] Phone Care Team Providers Care Home Performance Consultant Name Role Phone Jalen Toscano MD Primary [...] breasts were obtained. Exam is reviewed with Think Realtime CAD workstation with subtraction, 3-D MIP, and [...] bothbreasts were obtained. Exam is reviewed with Think Realtime CAD workstation withsubtraction, 3-D MIP, and multiplanar [...] EDT) SODIUM 141 133 - 146 mmol/L [facility] CHLORIDE 100 96 - 108 mmol/L [facility] POTASSIUM 3.8 3.3 - 5.1 mmol/L [facility] CO2 28 21 - 35 mmol/L [facility] BUN 13 6 - 19 mg/dL [facility] CREATININE 0.70 0.5 - 1.5 mg/dL [facility] GLUCOSE 105(H) 70 - 99 mg/dL [facility] CALCIUM 10.1 8.4 - 10.3 mg/dL [facility] EGFR 97 >59 mL/min/1.7 3m2 [facility] Comment:Estimated glomerular filtration rate calculated using the CKD-EPI equation. ANION GAP 17 10 - 20 mmol/L [facility] Blood 05/26/2020 1:25 PM EDT 05/26/2020 1:39 PM EDT Loren Fisher PA-C LAB BLOOD ORDERABLES Fi nal Result [address] [address] * Pap Smear (08/26/2019 12:00 AM EST) 08/26/2019 08/27/2019 8:3 3 AM EST Narrative SEE NARRATIVE - 09/04/2019 3:02 [place] [address] COAL TOWER OPERATOR Cytology Report Patient Name: NEFTALI PACHECO : 1965 (Age: 53) Sex: F Institution: [facility] Location: [facility] Date of Collection: 08/26/2019 Date of Reported: 09/04/2019 15:02 Results to: Chris Pickens MD, BS FINAL DIAGNOSIS A. CERVICAL, LIQUID BASED SPECIMEN: SPECIMEN ADEQUACY: Satisfactory for evaluation. INTERPRETATION: NEGATIVE FOR INTRAEPITHELIAL LESION OR MALIGNANCY. ADDITIONAL INFORMATION: This specimen was prescreened using the [employer] Imaging System. Electronically Signed Out By: RICHIE [...] 52, 56, 58, 59, 66, 68) by [employer] Onclarity HR-HPV analysis. Clinical correlation is advised. This HPV test was performed at [facility], [address] [place] [address]. This test has been FDA approved for SurePath cervical cytology specimens. The accuracy and precision of this test for all other specimen sources has been verified in the Cytopathology Laboratory of the [facility] and has not been cleared or approved by the U.S. Food and Drug Administration. Clinical correlation is advised. CLINICAL HISTORY Date of Last Menstrual Period: Menstrual History: Unknown Other Clinical Conditions: Screening Pap SPECIMEN SOURCE A: CERVICAL, LIQUID BASED SPECIMEN Chris Pickens MD CYTOLOGY ORDERABLES Final R esult SEE NARRATIVE from Last 3 Months or Most Recently Relevant to Health Maintenance Insurance [facility] O O O [facility] Address: [address] [address] Care Teams Home Performance Consultant Relationship Specialty Start Date End Date Jalen Toscano MD [address] [place] [id number] PCP - General Internal Medicine 05/26/20 Additional Source Comments The information contained in this document represents components of the legal health record. It is not the complete legal health record.[facility]
--- OUTSIDE RECORDS SUMMARY | 2025-07-09 17:33 | XMS_ITS | Encounter Summary ---
Author Organization [facility] Address [address] [place] [address] Phone Care Team Providers Care Machine Tool Operator Name Role Phone Jalen Toscano MD Primary Care Provider Encounter Details Date Type Department Care Team (Late st Contact Info) Description 03/24/2022 Procedure Pass [facility], [address] [address] Social History Tobacco Use Types Packs/Day Years [...] on filedocumented in this encounter Care Teams Machine Tool Operator Relationship Specialty Start Date End Date Jalen Toscano MD [address] [place] [address] [place] [address] PCP - General Internal Medicine 05/26/20 documented as of this encounter Additional Source Comments The information contained in this document represents components of the legal health record. It is not the complete legal health record.[facility]
== END 2025-07-09 12:41 | disposition home or self-care (01) ==
LOC: HO.LAB 12:40
PROVIDERS: PCP Physician Assistant; Visit Provider Physician Assistant
DX: R00.2 Palpitations (principal); H57.89 Other specified disorders of eye and adnexa
CPT/HCPCS: 36415; 84439; 84443; 84481; 86376

== ENCOUNTER → 2025-07-16 14:54 | Outpatient (AMB) | payer OTHER, SELFPAY ==
--- NOTE | 2025-07-16 14:03 | MHC.PC.OV ---
Vital Signs 07/16/25 15:04 07/16/25 17:13 Height 5 ft 7.83 in Weight 76.657 kg BMI 25.8 BP 146/90 H 130/88 Blood Pressure Location Lt brachial Position Sitting Respiration 18 Pulse 78 Pulse Source Pulse Oximeter Temp 97.4 F Temp Source Temporal Artery Scan Pulse Oximetry (%) 98 Intake Visit Reasons: Appt/ Per Patient Portal - see comments Anthropology Professor Required: No Accompanied by: Self / Same As Patient Allergies No Known Allergies Allergy (Verified 07/16/25 14:03) Tobacco use date assessed: 07/16/25 HPI HPI Comments History of Present Illness Details 59 year old female with history htn, hld, invasive ductal carcinoma R breast presents to the office today for post presents to the office today for post ER evaluation. She reports she had a mechanical fall down several steps about 2 weeks ago. No head strike or loss of consciousness. She was experiencing soreness in the right upper extremity and neck. She then went for a deep tissue massage to help with the neck discomfort. After the deep tissue massage, she has felt lightheaded with aching in the right eye that has been constant. She also has pressure in the right maxillary sinus worse in the morning and night. She notes a painful area in the right occipital scalp that radiates to the right side of the face. Reports feeling woozy Has also had episodes of vertigo when tilting her head backwards. No fevers, chills, congestion, sore throat, otalgia, neck pain, blurred vision, diplopia. She did see her insurance sales producer who did not feel there was anything abnormal from an ocular standpoint. Did check TSH, free T4, free T3 to rule out thyroid eye disease which were all within normal limits. Hypertension-controlled on recheck. Blood pressure 130/88 Hyperlipidemia-on atorvastatin, last LDL 122 Elevated LFTs-chronic, but improved from last labs. Abdominal U/S 03/2025 suggestive of hepatic steatosis or diffuse hepatocellular disease Insomnia-improved with zolpidem GERD-reports she is no longer taking omeprazole as she has stopped triggers ROS: see hpi EXAM: Constitutional - Awake and Alert, No apparent distress Eyes - PERRLA Cardiovascular - S1S2, RRR, No edema Respiratory - Normal lung expansion, Normal respiratory effort, No respiratory distress, CTA bilaterally Extremities - no calf tenderness bilaterally, no swelling Skin - Warm/Dry Neurological - Alert & oriented x3. CN II- XII in tact. 5/5 strength bilateral upper and lower extremities Psychological - Appropriate affect [facility] Medical History (Updated 07/16/25 @ 17:09 by SHELBIE Kenny) Anemia Insomnia Elevated liver enzymes GERD (gastroesophageal reflux disease) PVC (premature ventricular contraction) Essential hypertension Surgical History History of colonoscopy (~04/01/25) H/O breast reconstruction (~03/08/23) History of lumpectomy of right breast (03/02/22) History of lumpectomy of right breast (02/02/22) History of sinus surgery History of bilateral breast implants History of bunionectomy Family History Father Prostate CA Heart disease Mother Pancreatic cancer Paternal Aunt Ovarian cancer Social History Household Members: Spouse and Family Housing: House Do you presently have visiting nurse or other home services: No Alcohol intake: current Alcohol intake frequency: 0-2 drinks per day Patient Tobacco Use Status: Never used Tobacco e-Cigarette/Vaping Use: Never Used service: No Current occupational status: employed and retired Sexual orientation: Straight/Heterosexual Gender identity: Female Female Reproductive History Menstrual Age of Menarche: 11 Questionnaire Thrive Questionnaire Date Thrive assessed: 03/11/25 AUDIT C Alcohol Use Questionnaire (AUDIT-C) 1. How often do you have a drink containing alcohol?: 2-3 times a week 2. How many drinks containing alcohol do you have on a typical day when you are drinking?: 1 or 2 3. How often do you have six or more drinks on one occasion?: Never Total Score: 3 JEANNE-7 AMB Questionnaire JEANNE-7 Date JEANNE - 7 assessed: 03/11/25 Source: Developed by Drs. Guanaco Mireles, Yasmin Fernandes, Aniket Ortiz and colleagues, with an educational unruly from [employer]. Physical exam (Primary Care) Vital Signs: Last Vital Signs Temp 97.4 F 07/16/25 15:04 Pulse 78 07/16/25 15:04 Resp 18 07/16/25 15:04 BP 130/88 07/16/25 17:13 Pulse Ox 98 07/16/25 15:04 BMI result Body Mass Index 25.8 Tobacco/Smoking Status: Tobacco use Status Tobacco use date assessed 07/16/25 07/16/25 15:07 Patient Tobacco Use Status Never used Tobacco 07/16/25 14:03 e-Cigarette/Vaping Use Never Used 07/16/25 15:07 Thrive Assessment: Date of Thrive Assessment Date Thrive assessed 03/11/25 07/16/25 14:03 Coding Level of Care Code Est Pt Level 4 (56292) Complex EM visit Add On G2211 Diagnoses Occipital neuralgia of right side M54.81 Ocular pain, right eye H57.11 Essential hypertension I10 Assessment & Plan Assessment & Plan (1) Occipital neuralgia of right side: Code(s): M54.81 - Occipital neuralgia Category: Medical Plan: Counseled on occipital neuralgia. Recommend anti-inflammatories. She is also given prescription for Robaxin to use up to 3 times daily as needed. Referred to physical therapy. Discussed additional medications that can be added such as anticonvulsants if needed however she is hesitant about this. (2) Ocular pain, right eye: Code(s): H57.11 - Ocular pain, right eye Category: Medical Plan: Reassuring visit with Ophthalmology. Discussed that the pain/pressure in the eye could be related to the occipital neuralgia as well. She is referred to physical therapy. See above. Given asosciated sinus pressure, trial augmentin x 7 days. (3) Essential hypertension: Code(s): I10 - Essential (primary) hypertension Category: Medical Plan: Controlled on recheck. Continue olmesartan 40 mg, hydrochlorothiazide 25 mg daily Plan Follow-up in the office in 2 months as scheduled. Labs to be completed Orders: Orders PT Evaluation and Treatment 07/16/25 M54.81 - Occipital neuralgia Basic Metabolic Panel 07/16/25 D64.9 - Anemia, unspecified, I10 - Essential (primary) hypertension, M54.81 - Occipital neuralgia Vitamin D 25-OH Total 07/16/25 D64.9 - Anemia, unspecified, I10 - Essential (primary) hypertension, M54.81 - Occipital neuralgia Complete Blood Count Auto Diff 07/16/25 D64.9 - Anemia, unspecified, I10 - Essential (primary) hypertension, M54.81 - Occipital neuralgia IRON PROFILE 07/16/25 D64.9 - Anemia, unspecified, I10 - Essential (primary) hypertension, M54.81 - Occipital neuralgia Parathyroid Hormone Intact 07/16/25 D64.9 - Anemia, unspecified, I10 - Essential (primary) hypertension, M54.81 - Occipital neuralgia Medications: New methocarbamol 750 mg PO Q8H PRN 30 tabs 0RF muscle spasm amoxicillin-pot clavulanate 875-125 mg 1 tab PO BID 14 tabs 0RF ibuprofen 800 mg PO Q8H PRN 90 tabs 0RF pain
[2025-07-16 15:04] VITALS: BP 146/90; PULSE 78; RESP 18; TEMP 36.3; O2SAT 98; BMI 25.8
[2025-07-16 17:13] VITALS: BP 130/88
--- OUTSIDE RECORDS SUMMARY | 2025-07-16 19:20 | XMS_ITS | Encounter Summary ---
Author Organization [facility] Address [address] [place] [address] Phone Care Team Providers Care Merchandising Lead Name Role Phone Jalen Toscano MD Primary Care Provider Encounter Details Date Type Department Care Team (Late st Contact Info) Description 03/24/2022 Procedure Pass [facility], [address] [address] Social History Tobacco Use Types Packs/Day Years [...] on filedocumented in this encounter Care Teams Merchandising Lead Relationship Specialty Start Date End Date Jalen Toscano MD [address] [place] [address] [place] [address] PCP - General Internal Medicine 05/26/20 documented as of this encounter Additional Source Comments The information contained in this document represents components of the legal health record. It is not the complete legal health record.[facility]
--- OUTSIDE RECORDS SUMMARY | 2025-07-16 19:20 | XMS_ITS | Clinical Summary ---
Author Organization [facility] Address [address] [place] [phone] Phone Care Team Providers Care Registry Np Name Role Phone Jalen Toscano MD Primary [...] breasts were obtained. Exam is reviewed with [employer]OT[employer] CAD workstation with subtraction, 3-D MIP, and [...] bothbreasts were obtained. Exam is reviewed with [employer]OT[employer] CAD workstation withsubtraction, 3-D MIP, and multiplanar [...] EDT) SODIUM 141 133 - 146 mmol/L [facility] CHLORIDE 100 96 - 108 mmol/L [facility] POTASSIUM 3.8 3.3 - 5.1 mmol/L [facility] CO2 28 21 - 35 mmol/L [facility] BUN 13 6 - 19 mg/dL [facility] CREATININE 0.70 0.5 - 1.5 mg/dL [facility] GLUCOSE 105(H) 70 - 99 mg/dL [facility] CALCIUM 10.1 8.4 - 10.3 mg/dL [facility] EGFR 97 >59 mL/min/1.7 3m2 [facility] Comment:Estimated glomerular filtration rate calculated using the CKD-EPI equation. ANION GAP 17 10 - 20 mmol/L [facility] Blood 05/26/2020 1:25 PM EDT 05/26/2020 1:39 PM EDT Loren Fisher PA-C LAB BLOOD ORDERABLES Fi nal Result [address] [address] * Pap Smear (08/26/2019 12:00 AM EST) 08/26/2019 08/27/2019 8:3 3 AM EST Narrative SEE NARRATIVE - 09/04/2019 3:02 [place] [address] SPEECH LANGUAGE PATHOLOGIST TRAVEL Cytology Report Patient Name: NEFTALI PACHECO : 1965 (Age: 53) Sex: F Institution: [facility] Location: [facility] Date of Collection: 08/26/2019 Date of Reported: 09/04/2019 15:02 Results to: Chris Pickens MD, BS FINAL DIAGNOSIS A. CERVICAL, LIQUID BASED SPECIMEN: SPECIMEN ADEQUACY: Satisfactory for evaluation. INTERPRETATION: NEGATIVE FOR INTRAEPITHELIAL LESION OR MALIGNANCY. ADDITIONAL INFORMATION: This specimen was prescreened using the [employer] Imaging System. Electronically Signed Out By: RICHIE [...] 52, 56, 58, 59, 66, 68) by [employer] Onclarity HR-HPV analysis. Clinical correlation is advised. This HPV test was performed at [facility], [address] [place] [address]. This test has been FDA approved for SurePath cervical cytology specimens. The accuracy and precision of this test for all other specimen sources has been verified in the Cytopathology Laboratory of the [facility] and has not been cleared or approved by the U.S. Food and Drug Administration. Clinical correlation is advised. CLINICAL HISTORY Date of Last Menstrual Period: Menstrual History: Unknown Other Clinical Conditions: Screening Pap SPECIMEN SOURCE A: CERVICAL, LIQUID BASED SPECIMEN Chris Pickens MD CYTOLOGY ORDERABLES Final R esult SEE NARRATIVE from Last 3 Months or Most Recently Relevant to Health Maintenance Insurance [facility] Care Teams Registry Np Relationship Specialty Start Date End Date Jalen Toscano MD [address] [place] [address] PCP - General Internal Medicine 05/26/20 Additional Source Comments The information contained in this document represents components of the legal health record. It is not the complete legal health record.[facility]
== END ==
LOC: HO.HMCHD 14:55
PROVIDERS: PCP Physician Assistant; Visit Provider Physician Assistant
DX: M54.81 Occipital neuralgia (principal); H57.11 Ocular pain, right eye; I10 Essential (primary) hypertension

== ENCOUNTER → 2025-08-07 07:56 | Outpatient (REF) | payer OTHER, SELFPAY ==
--- OUTSIDE RECORDS SUMMARY | 2025-08-07 08:10 | XMS_ITS | Encounter Summary ---
Author Organization [facility] Address [address] [place] [address] Phone Care Team Providers Care Knitting Machine Operator Helper Name Role Phone Jalen Toscano MD Primary Care Provider Encounter Details Date Type Department Care Team (Late st Contact Info) Description 03/24/2022 Procedure Pass [facility], [address] [address] Social History Tobacco Use Types Packs/Day Years [...] on filedocumented in this encounter Care Teams Knitting Machine Operator Helper Relationship Specialty Start Date End Date Jalen Toscano MD [address] [place] [address] [place] [address] PCP - General Internal Medicine 05/26/20 documented as of this encounter Additional Source Comments The information contained in this document represents components of the legal health record. It is not the complete legal health record.[facility]
--- OUTSIDE RECORDS SUMMARY | 2025-08-07 08:10 | XMS_ITS | Clinical Summary ---
Author Organization [facility] Address [address] [place] [phone] Phone Care Team Providers Care Career Agent Name Role Phone Jalen Toscano MD Primary [...] PM EDT Breast cancer BASIC METABOLIC PANEL (BMP) STAT 05/26/2020 1:25 PM EDT PAP TEST [...] breasts were obtained. Exam is reviewed with [employer] CAD workstation with subtraction, 3-D MIP, and [...] bothbreasts were obtained. Exam is reviewed with [employer] CAD workstation withsubtraction, 3-D MIP, and multiplanar [...] - KNOWN BIOPSY PROVEN MALIGNANCY us Florence K Jazmine MD IMG MR BREAST Final Resu lt * (ABNORMAL) Basic metabolic panel (05/26/2020 1:25 PM EDT) SODIUM 141 133 - 146 mmol/L [facility] CHLORIDE 100 96 - 108 mmol/L [facility] POTASSIUM 3.8 3.3 - 5.1 mmol/L [facility] CO2 28 21 - 35 mmol/L [facility] BUN 13 6 - 19 mg/dL [facility] CREATININE 0.70 0.5 - 1.5 mg/dL [facility] GLUCOSE 105(H) 70 - 99 mg/dL [facility] CALCIUM 10.1 8.4 - 10.3 mg/dL [facility] EGFR 97 >59 mL/min/1.7 3m2 [facility] Comment:Estimated glomerular filtration rate calculated using the CKD-EPI equation. ANION GAP 17 10 - 20 mmol/L [facility] Blood 05/26/2020 1:25 PM EDT 05/26/2020 1:39 PM EDT us Loren Fisher PA-C LAB BLOOD BKR ORDERABLE S Final Result [address] [id number] * Pap Smear (08/26/2019 12:00 AM EST) 08/26/2019 08/27/2019 8:3 3 AM EST Narrative SEE NARRATIVE - 09/04/2019 3:02 [place] [address] FOREST FIRE OFFICER Cytology Report Patient Name: NEFTALI PACHECO : 1965 (Age: 53) Sex: F Institution: [facility] Location: [facility] Date of Collection: 08/26/2019 Date of Reported: 09/04/2019 15:02 Results to: Chris Pickens MD, BS FINAL DIAGNOSIS A. CERVICAL, LIQUID BASED SPECIMEN: SPECIMEN ADEQUACY: Satisfactory for evaluation. INTERPRETATION: NEGATIVE FOR INTRAEPITHELIAL LESION OR MALIGNANCY. ADDITIONAL INFORMATION: This specimen was prescreened using the [employer] Imaging System. Electronically Signed Out By: RICHIE [...] 52, 56, 58, 59, 66, 68) by [employer] HR-HPV analysis. Clinical correlation is advised. This HPV test was performed at [facility], [address] [place] [address]. This test has been FDA approved for SurePath cervical cytology specimens. The accuracy and precision of this test for all other specimen sources has been verified in the Cytopathology Laboratory of the [facility] and has not been cleared or approved by the U.S. Food and Drug Administration. Clinical correlation is advised. CLINICAL HISTORY Date of Last Menstrual Period: Menstrual History: Unknown Other Clinical Conditions: Screening Pap SPECIMEN SOURCE A: CERVICAL, LIQUID BASED SPECIMEN us Chris Pickens MD CYTOLOGY ORDERABLES Final R esult SEE NARRATIVE from Last 3 Months or Most Recently Relevant to Health Maintenance Insurance [facility] Care Teams Career Agent Relationship Specialty Start Date End Date Jalen Toscano MD [address] [place] [address] [address] [place] [address] PCP - General Internal Medicine 05/26/20 Additional Source Comments The information contained in this document represents components of the legal health record. It is not the complete legal health record.[facility]
== END ==
LOC: HO.CARD 07:56
PROVIDERS: PCP Physician Assistant; Visit Provider Physician Assistant
DX: R00.2 Palpitations (principal)
CPT/HCPCS: 93242

== ENCOUNTER → 2025-08-07 07:58 | Outpatient (BNV) | payer OTHER, SELFPAY | PROVIDERS: PCP Physician Assistant; Visit Provider Internal Medicine | DX: I49.3 Ventricular premature depolarization (principal); I49.49 Other premature depolarization | CPT/HCPCS: 93244 ==

== ENCOUNTER 2025-08-07 08:23 | Outpatient (REF) | payer OTHER, SELFPAY ==
[2025-08-07 10:36] LABS: MANUAL DIFF FLAG NO
[2025-08-07 10:49] LABS: Hematocrit 38.8 % (37.0-47.0); Hemoglobin 12.7 g/dl (12.0-16.0); Imm Gran Abs Auto 0.01 X10*3/uL (0.00-0.03); Imm Gran Pct Auto 0.2 % (0.0-0.4); Lymphocytes Absolute Auto 2.0 X10*3/uL (1.2-4.9); Mean Corpuscular HGB Conc 32.7 g/dl (31.0-35.0); Mean Corpuscular Hemoglobin 29.7 pg (27.0-33.0); Mean Corpuscular Volume 90.9 fL (80.0-98.0); NRBC Abs Auto 0.000 X10*3/uL (0.0-0.012); NRBC Pct Auto 0.0 /100WBC (0.0-0.2); Platelet Count 290 X10*3/uL (160-400); Red Blood Count 4.27 X10*6/uL (4.20-5.50); White Blood Count 6.4 X10*3/uL (4.8-10.8)
[2025-08-07 11:44] LABS: Alanine Aminotransferase 37 U/L (0-31); Albumin Level 5.2 g/dL (3.5-5.0); Alkaline Phosphatase 67 U/L (39-117); Anion Gap 17 (12-20); Aspartate Amino Transferase 32 U/L (5-31); Blood Urea Nitrogen 17 mg/dL (9-16); Calcium 10.0 mg/dL (8.4-10.2); Carbon Dioxide 28 mmol/L (22-29); Chloride 102 mmol/L (96-108); Cholesterol 266 mg/dL (<200); Estimated Glomerular Filt Rate > 60; HDL Cholesterol 77 mg/dL (>40); Potassium 4.2 mmol/L (3.3-5.1); Sodium 143 mmol/L (135-145); Total Protein 7.8 g/dL (6.5-8.0); Triglycerides 177 mg/dL (<150)
== END 2025-08-07 08:24 | disposition home or self-care (01) ==
LOC: HO.10HDL 08:23
PROVIDERS: Visit Provider Physician Assistant
DX: I10 Essential (primary) hypertension (principal); E78.5 Hyperlipidemia, unspecified
CPT/HCPCS: 36415; 80048; 80061; 80076; 85025

== ENCOUNTER 2025-09-09 07:47 | Outpatient (AMB) | payer OTHER, SELFPAY ==
--- OUTSIDE RECORDS SUMMARY | 2025-09-09 07:49 | XMS_ITS | Clinical Summary ---
Author Organization [facility] Address [address] [place] [address] Phone Care Team Providers Care Bus System Operator Name Role Phone Jalen Toscano MD [...] breasts were obtained. Exam is reviewed with [employer] CAD workstation with subtraction, 3-D MIP, and [...] bothbreasts were obtained. Exam is reviewed with [employer] CAD workstation withsubtraction, 3-D MIP, and multiplanar [...] EDT) SODIUM 141 133 - 146 mmol/L [facility] CHLORIDE 100 96 - 108 mmol/L [facility] POTASSIUM 3.8 3.3 - 5.1 mmol/L [facility] CO2 28 21 - 35 mmol/L [facility] BUN 13 6 - 19 mg/dL [facility] CREATININE 0.70 0.5 - 1.5 mg/dL [facility] GLUCOSE 105(H) 70 - 99 mg/dL [facility] CALCIUM 10.1 8.4 - 10.3 mg/dL [facility] EGFR 97 >59 mL/min/1.7 3m2 [facility] Comment:Estimated glomerular filtration rate calculated using the CKD-EPI equation. ANION GAP 17 10 - 20 mmol/L [facility] Blood 05/26/2020 1:25 PM EDT 05/26/2020 1:39 PM EDT us Loren Fisher PA-C LAB BLOOD BKR ORDERABLE S Final Result [address] [id number] * Pap Smear (08/26/2019 12:00 AM EST) 08/26/2019 08/27/2019 8:3 3 AM EST Narrative SEE NARRATIVE - 09/04/2019 3:02 [place] [address] [employer]OLSM[employer] Cytology Report Patient Name: NEFTALI PACHECO : 1965 (Age: 53) Sex: F Institution: [facility] Location: [facility] Date of Collection: 08/26/2019 Date of Reported: 09/04/2019 15:02 Results to: Chris Pickens MD, BS FINAL DIAGNOSIS A. CERVICAL, LIQUID BASED SPECIMEN: SPECIMEN ADEQUACY: Satisfactory for evaluation. INTERPRETATION: NEGATIVE FOR INTRAEPITHELIAL LESION OR MALIGNANCY. ADDITIONAL INFORMATION: This specimen was prescreened using the [employer] Imaging System. Electronically Signed Out By: RICHIE [...] 52, 56, 58, 59, 66, 68) by [employer] HR-HPV analysis. Clinical correlation is advised. This HPV test was performed at [facility], [address] [place] [address]. This test has been FDA approved for SurePath cervical cytology specimens. The accuracy and precision of this test for all other specimen sources has been verified in the Cytopathology Laboratory of the [facility] and has not been cleared or approved by the U.S. Food and Drug Administration. Clinical correlation is advised. CLINICAL HISTORY Date of Last Menstrual Period: Menstrual History: Unknown Other Clinical Conditions: Screening Pap SPECIMEN SOURCE A: CERVICAL, LIQUID BASED SPECIMEN us Chris Pickens MD CYTOLOGY ORDERABLES Final R esult SEE NARRATIVE from Last 3 Months or Most Recently Relevant to Health Maintenance Insurance [facility] O O O O [facility] Care Teams Bus System Operator Relationship Specialty Start Date End Date Jalen Toscano MD [address] [place] [address] [address] [place] [address] PCP - General Internal Medicine 05/26/20 Additional Source Comments The information contained in this document represents components of the legal health record. It is not the complete legal health record.[facility]
--- OUTSIDE RECORDS SUMMARY | 2025-09-09 07:49 | XMS_ITS | Encounter Summary ---
Author Organization [facility] Address [address] [place] [id number] Phone Care Team Providers Care Animal Laboratory Technician Name Role Phone Jalen Toscano MD Primary Care Provider Encounter Details Date Type Department Care Team (Late st Contact Info) Description 03/24/2022 Procedure Pass [facility], [address] [id number] Social History Tobacco Use Types Packs/Day Years [...] on filedocumented in this encounter Care Teams Animal Laboratory Technician Relationship Specialty Start Date End Date Jalen Toscano MD [address] [place] [address] [place] [address] PCP - General Internal Medicine 05/26/20 documented as of this encounter Additional Source Comments The information contained in this document represents components of the legal health record. It is not the complete legal health record.[facility]
--- NOTE | 2025-09-09 07:51 | MHC.PC.OV ---
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 Accompanied by: Self / Same As Patient Allergies No Known Allergies Allergy (Verified 09/09/25 07:51) Medication List - Last Reconciled 09/09/25 by SHELBIE Kenny anastrozole (Arimidex) 1 mg PO DAILY atorvastatin (Lipitor) 40 mg PO DAILY cholecalciferol (vitamin D3) (Vitamin D3) 25 mcg PO DAILY cyanocobalamin-cobamamide 5,000-100 mcg (B12) 5,000 chadd sublingual hydrochlorothiazide 25 mg PO DAILY ibuprofen 800 mg PO Q8H PRN magnesium mg methocarbamol 750 mg PO Q8H PRN olmesartan 40 mg PO DAILY omeprazole 40 mg PO ONCE 90 days zolpidem 7.5 mg (1.5 x 5 mg) PO BEDTIME Tobacco use date assessed: 07/16/25 HPI HPI Comments History of Present Illness Details 59 year old female with history htn, hld, invasive ductal carcinoma R breast presents to the office today for post presents to the office today for post ER evaluation. She reports she had a mechanical fall down several steps about 2 weeks ago. No head strike or loss of consciousness. She was experiencing soreness in the right upper extremity and neck. She then went for a deep tissue massage to help with the neck discomfort. After the deep tissue massage, she has felt lightheaded with aching in the right eye that has been constant. She also has pressure in the right maxillary sinus worse in the morning and night. She notes a painful area in the right occipital scalp that radiates to the right side of the face. Reports feeling woozy Has also had episodes of vertigo when tilting her head backwards. No fevers, chills, congestion, sore throat, otalgia, neck pain, blurred vision, diplopia. She did see her electrical systems design engineer who did not feel there was anything abnormal from an ocular standpoint. Did check TSH, free T4, free T3 to rule out thyroid eye disease which were all within normal limits. She continues with the fuzzy/foggy feeling and feeling her stamina has decreased. Feels as if she is unable to do things that she was previously able to. There is midline neck pain and is following with PT. Was diagnosed with an occipital neuralgia thinking this radiated from the cervical spine. All of the symptoms started after a deep tissue massage. She has been taking a muscle relaxer which was helpful and is requesting a refill. States due to everything that is going on, starting to feel depressed. She is also beginning to experience some anorexia related to this. She has been getting acupuncture as well. Hypertension-controlled on recheck. Blood pressure 130/88 Hyperlipidemia-on atorvastatin, last LDL 122 Elevated LFTs-chronic, but improved from last labs. Abdominal U/S 03/2025 suggestive of hepatic steatosis or diffuse hepatocellular disease Insomnia-improved with zolpidem GERD-reports she is no longer taking omeprazole as she has stopped triggers Lymphedema-swelling improving but does have weakness in the right lower extremity COncerns: as above ROS: see hpi EXAM: Constitutional - Awake and Alert, No apparent distress Eyes - PERRLA Cardiovascular - S1S2, RRR, No edema Respiratory - Normal lung expansion, Normal respiratory effort, No respiratory distress, CTA bilaterally Extremities - no calf tenderness bilaterally, no swelling Skin - Warm/Dry Neurological - Alert & oriented x3. CN II- XII in tact. 4/5 strength right extremities and 5/5 strength in RUE and ble lower extremities Psychological - Appropriate affect PFSH Medical History (Updated 09/09/25 @ 12:44 by SHELBIE Kenny) Chronic vertigo Anemia Insomnia Elevated liver enzymes GERD (gastroesophageal reflux disease) PVC (premature ventricular contraction) Essential hypertension Surgical History History of colonoscopy (~04/01/25) H/O breast reconstruction (~03/08/23) History of lumpectomy of right breast (03/02/22) History of lumpectomy of right breast (02/02/22) History of sinus surgery History of bilateral breast implants History of bunionectomy Family History Father Prostate CA Heart disease Mother Pancreatic cancer Paternal Aunt Ovarian cancer Social History Household Members: Spouse and Family Housing: House Do you presently have visiting nurse or other home services: No Alcohol intake: current Alcohol intake frequency: 0-2 drinks per day Patient Tobacco Use Status: Never used Tobacco e-Cigarette/Vaping Use: Never Used service: No Current occupational status: employed and retired Sexual orientation: Straight/Heterosexual Gender identity: Female Female Reproductive History Menstrual Age of Menarche: 11 Questionnaire PHQ-9 Over the last 2 weeks, how often have you been bothered by any of the following problems? 1. Little interest or pleasure in doing things: not at all 2. Feeling down, depressed, or hopeless: not at all 3. Trouble falling or staying asleep, or sleeping too much: not at all 4. Feeling tired or having little energy: not at all 5. Poor appetite or overeating: not at all 6. Feeling bad about yourself - or that you are a failure or have let yourself or your family down: not at all 7. Trouble concentrating on things, such as reading the newspaper or watching television: not at all 8. Moving or speaking so slowly that other people could have noticed. Or the opposite - being so fidgety or restless that you have been moving around a lot more than usual: not at all 9. Thoughts that you would be better off or of hurting yourself in some way: not at all Total score: 0 Depression Screening Interpretation: Negative Depression Screening Done: Yes Source: Developed by Drs. Guanaco Mireles, Aniket Morales and colleagues, with an educational unruly from [email or web address]. Thrive Questionnaire Date Thrive assessed: 03/11/25 AUDIT C Alcohol Use Questionnaire (AUDIT-C) 2. How many drinks containing alcohol do you have on a typical day when you are drinking?: 1 or 2 3. How often do you have six or more drinks on one occasion?: Never Total Score: 0 JEANNE-7 AMB Questionnaire JEANNE-7 Date JEANNE - 7 assessed: 03/11/25 Source: Developed by Drs. Guanaco Mireles, Aniket Morales and colleagues, with an educational unruly from [email or web address]. Physical exam (Primary Care) Vital Signs: Last Vital Signs Temp 97.5 F 12/23/25 07:55 Pulse 83 09/09/25 07:55 Resp 14 09/09/25 07:55 BP 140/94 H 09/09/25 07:55 Pulse Ox 99 09/09/25 07:55 Oxygen Delivery Method Room Air 09/09/25 07:55 BMI result Body Mass Index 27.4 Tobacco/Smoking Status: Tobacco use Status Tobacco use date assessed 07/16/25 09/09/25 07:57 Patient Tobacco Use Status Never used Tobacco 09/09/25 07:57 e-Cigarette/Vaping Use Never Used 09/09/25 07:57 PHQ-9: PHQ-9 Score PHQ-9: Total score 0 09/09/25 08:13 Depression Screening Interpretation: Negative Thrive Assessment: Date of Thrive Assessment Date Thrive assessed 03/11/25 09/09/25 07:57 Coding Level of Care Code Est Pt Level 5 (41749) Add On Problem Visit Only Diagnoses Occipital neuralgia of right side M54.81 Ocular pain, right eye H57.11 Essential hypertension I10 Time Spent (min) 55 Assessment & Plan Assessment & Plan (1) Occipital neuralgia of right side: Code(s): M54.81 - Occipital neuralgia Category: Medical Plan: Counseled on occipital neuralgia. Recommend anti-inflammatories. She is also given prescription for Robaxin to use up to 3 times daily as needed. Referred to physical therapy. Discussed additional medications that can be added such as anticonvulsants if needed however she is hesitant about this. (2) Ocular pain, right eye: Code(s): H57.11 - Ocular pain, right eye Category: Medical Plan: Reassuring visit with Ophthalmology. Discussed that the pain/pressure in the eye could be related to the occipital neuralgia as well. She is referred to physical therapy. See above. Given asosciated sinus pressure, completed course of Augmentin without improvement (3) Essential hypertension: Code(s): I10 - Essential (primary) hypertension Category: Medical Plan: Controlled on recheck. Continue olmesartan 40 mg, hydrochlorothiazide 25 mg daily Plan Patient has had a concerning constellation of symptoms ongoing for the last few months. She has experienced optic neuritis, paresthesias of the bilateral lower extremities, recurrent vertigo, fatigue, brain fog as well as pain in the cervical spine. At this time, etiology is unclear. Perhaps she does have different ailments going on simultaneously, however given sudden onset of symptoms, this seems less likely. Differential to include occipital neuralgia, complex migraines, or other neurologic disorder. Testing thus far has included normal CBC, normal renal function and electrolyte levels. Very slightly elevated AST and ALT. Cholesterol levels were elevated with LDL 154 and was started on atorvastatin 40 mg daily. TSH within normal limits along with free T4 and free T3. Negative for tick-borne illness. CT of the cervical spine shows uncovertebral joint hypertrophy at C2-C3 as well as at C4-C5, C5-C6, C6-C7. Otherwise mild-moderate neural foraminal narrowing without any central canal stenosis. This could potentially be related to patient's symptoms, but seems less likely in the absence of any central canal stenosis. There are other degenerative changes noted Head CT was negative for any acute intracranial abnormality MRI brain ordered for further evaluation and is referred to neurology for further assessment Orders: Orders MR head/brain wo con Today H57.11 - Ocular pain, right eye, R20.2 - Paresthesia of skin, R29.898 - Other symptoms and signs involving the musculoskeletal system, R41.89 - Other symptoms and signs involving cognitive functions and awareness, R42 - Dizziness and giddiness MR head/brain wo/w con Today H57.11 - Ocular pain, right eye, M54.81 - Occipital neuralgia, R20.2 - Paresthesia of skin, R29.898 - Other symptoms and signs involving the musculoskeletal system, R41.89 - Other symptoms and signs involving cognitive functions and awareness, R42 - Dizziness and giddiness Referrals Neurology Referral R20.0 - Anesthesia of skin, R20.2 - Paresthesia of skin, R29.898 - Other symptoms and signs involving the musculoskeletal system, R41.89 - Other symptoms and signs involving cognitive functions and awareness, R42 - Dizziness and giddiness Medications: Refilled methocarbamol 750 mg PO Q8H PRN 30 tabs 0RF muscle spasm
[2025-09-09 07:55] VITALS: BP 140/94; PULSE 83; RESP 14; TEMP 36.4; O2SAT 99; BMI 27.4
[2025-09-09 12:46] VITALS: BP 130/80
== END 2025-09-09 08:26 | disposition home or self-care (01) ==
LOC: HO.HMCHD 07:47
PROVIDERS: PCP Physician Assistant; Visit Provider Physician Assistant
DX: M54.81 Occipital neuralgia (principal); H57.11 Ocular pain, right eye; I10 Essential (primary) hypertension